=== PATIENT | female | born 1975 | race Caucasian/White ===

== ENCOUNTER 2018-03-09 16:42 | Observation (INO) ==
[2018-03-09 17:22] LABS: Basophils % 0.3 % (0.1-2.0); Eosinophils # 0.1 K/mm3 (0.0-0.4); Eosinophils % 1.3 % (0.1-12.0); Hematocrit 43.7 % (37.0-47.0); Hemoglobin 14.5 g/dL (12.2-16.2); Lymphocytes # 2.4 K/mm3 (0.7-4.5); Lymphocytes % 25.5 K/mm3 (10-50); Mean Corpuscular HGB Conc 33.3 g/dL (31.8-35.4); Mean Corpuscular Hemoglobin 28.8 pg (27.0-31.2); Mean Corpuscular Volume 86.5 fl (81-99); Mean Platelet Volume 7.1 fl (7.4-10.4); Monocytes # 0.3 K/mm3 (0.1-1.0); Monocytes % 2.8 % (1.7-9.3); Neutrophils # 6.5 K/mm3 (1.8-7.8); Platelet Count 381 K/mm3 (142-424); Red Blood Count 5.05 M/mm3 (4.20-5.40); Red Cell Distribution Width 14.8 % (11.5-17.5); White Blood Count 9.2 K/mm3 (4.8-10.8)
[2018-03-09 17:40] LABS: Alanine Aminotransferase 16 U/L (12-78); Albumin Level 4.1 gm/dL (3.4-5.0); Alkaline Phosphatase 140 U/L (46-116); Aspartate Amino Transferase 13 U/L (15-37); Bilirubin,Total 0.2 mg/dL (0.2-1.0); Blood Urea Nitrogen 16 mg/dL (7-18); Calcium 9.5 mg/dL (8.5-10.1); Carbon Dioxide 23 mmol/L (21.0-32.0); Chloride 102 mmol/L (98-107); Creatine Kinase 67 U/L (26-192); Glucose 149 mg/dL (74-106); Sodium 139 mmol/L (136-145); Total Protein,Serum 8.1 gm/dL (6.4-8.2)
--- NOTE | 2018-03-09 18:39 | Emergency Department Note ---
ED Disposition Clinical Impression: Chest pain Qualifiers: Chest pain type: precordial pain Qualified Code(s): R07.2 - Precordial pain Disposition: Still a Patient Condition on Discharge: Good Referrals: Susan Arora [Primary Care Provider] - - Critical Care Critical Care Time: No Attestation: On 03/09/18, the high probability of a clinically significant, sudden or life threatening deterioration of the following system(s) required my full and direct attention, intervention and personal management. The time I documented below is in addition to time spent performing reported procedures but includes the following listed in this critical care notation. Medical Decision Making - David Inquiry Pt receiving controlled substance: No Vital Signs: 03/09/18 16:43 Temperature 98.2 F Temperature Source Oral Pulse Rate [Right Brachial] 80 Respiratory Rate 18 Blood Pressure [Right Arm] 132/95 Blood Pressure Mean [Right Arm] 107 Blood Pressure Source [Right Arm] Automatic Cuff Blood Pressure Position [Right Arm] Sitting 02 Sat by Pulse Oximetry 98 Oxygen Delivery Method Room Air - Lab Data Lab Results 03/09/18 16:53: WBC 9.2, RBC 5.05, Hgb 14.5, Hct 43.7, MCV 86.5, MCH 28.8, MCHC 33.3, RDW 14.8, Plt Count 381, MPV 7.1 L, Neut % (Auto) 70.0, Lymph % (Auto) 25.5, Roberts % (Auto) 2.8, Eos % (Auto) 1.3, Baso % (Auto) 0.3, Neut # (Auto) 6.5 , Lymph # (Auto) 2.4, Roberts # (Auto) 0.3, Eos # (Auto) 0.1, Baso # (Auto) 0.0 03/09/18 16:53: Sodium 139, Potassium 4.0, Chloride 102, Carbon Dioxide 23, Anion Gap 18.0 H, BUN 16, Creatinine 0.68, Estimated Creat Clear 125, Estimated GFR 94, Est GFR ( Amer) 114, Glucose 149 H, Calcium 9.5, Total Bilirubin 0.2, AST 13 L, ALT 16, Alkaline Phosphatase 140 H, Total Creatine Kinase 67, CK- MB (CK-2) < 0.5, CK-MB (CK-2) Rel Index 0.7, Troponin I < 0.02, Total Protein 8.1, Albumin 4.1, Globulin 4.0 H, Albumin/Globulin Ratio 1.0 L Result diagrams: 03/09/18 16:53 03/09/18 16:53 Orders (Tests/Meds): ED MEDICATIONS Discontinued Medications Generic Name Dose Route Start Last Admin Trade Name Edwin PRN Reason Stop Dose Admin Aspirin 162 mg 03/09/18 19:18 03/09/18 19:19 Aspirin 81mg Chewable Tablet PO 03/09/18 19:19 162 mg ONCE ONE Administration - ECG Data Tracing #1 EKG interpreted by Javon Bhagat MD: Rhythm: sinus tachycardia Rate: 124 [place]: normal Ectopy: none Conduction: normal ST Segment Changes: Nonspecific T Wave Changes: Nonspecific Q Waves: none No evidence of acute ischemia or injury No prior EKGs available for comparison Medical Decision Narrative: 7:05 PM: Discussed with Dr. Callaway, cardiology. He recommends admitting the patient for workup. Patient is agreeable. 7:20 PM: I have discussed the case with Dr. Henderson who agrees to admit the patient to the hospital. We discussed the patient's clinical information, including history, exam, laboratory and radiology results and ED course. Per hospital procedure, I will write temporary bridge inpatient orders on the patient. Specific orders requested by the admitting physician: Serial cardiac enzymes, cardiology consult, echocardiogram in the morning General Adult HPI - General Chief complaint: PAIN Stated complaint: CHEST PAIIN Time Seen by Provider: 03/09/18 18:40 Mode of Arrival: Ambulatory Limitations: No Limitations Description of Symptoms (Recalled from ER Triage Doc. by RN): PAIN IN CHEST AND SHOULDERS AND BACK; GOING ON FOR A COUPLE OF DAYS. WORSENED TODAY - History of Present Illness HPI narrative: The past 2 days the patient has had intermittent chest pain in the sternal and left inframammary area lasting an hour to 2 per episode. A couple of episodes per day. Associated with shortness of breath. No nausea or diaphoresis. She also feels her heart racing at times. Today she also had an episode beginning approximately 2 PM with shoulder discomfort bilaterally posteriorly across her shoulder blades. [place] her heart racing as well. No prior history of heart disease. No prior history of cardiac testing such as stress test or angiogram. She has hypertension and she is a smoker. History of stroke and hypertension in her family. He was better after arriving in the emergency room. Only mild discomfort currently. Is a history of chronic back pain and multiple back surgeries. - Related Data Allergies Allergy/AdvReac Type Severity Reaction Status Date / Time morphine [MORPHINE] Allergy Unknown Verified 03/09/18 19:18 Sulfa (Sulfonamide Allergy Unknown Verified 03/09/18 19:18 Antibiotics) [SULFA (SULFONAMIDE ANTIBIOTICS)] sulfamethoxazole Allergy Unknown Verified 03/09/18 19:18 [From BACTRIM] trimethoprim [From BACTRIM] Allergy Unknown Unverified 11/09/17 14:26 [facility] History I have reviewed the patient's past medical history: Yes - Social History Alcohol Intake: never Substance Use Type: IV drugs Last Used Substance: unknown - Psychiatric History Expresses thoughts of harming self/others: None Suicide Plan Description: No Plan ROS Obtained: Yes All systems reviewed & no additional complaints - Constitutional Constitutional: Denies fever(s) - Cardiovascular Cardiovascular: Reports chest pain, Reports palpitations - Respiratory Respiratory: No cough, Yes dyspnea - Gastrointestinal Gastrointestingal: Denies: nausea, vomiting - Musculoskeletal Musculoskeletal: Reports back pain Physical Exam - General General appearance: alert, in no apparent distress Comment: Heart rate 76 - Head Head exam: atraumatic, normocephalic, normal inspection - Eye Eye exam: Present: normal appearance, PERRL, EOMI - ENT ENT exam: Present: normal exam, normal oropharynx, mucous membranes moist, TM's normal bilaterally, normal external ear exam - Neck Neck exam: Present: normal inspection, full ROM, trachea midline. Absent: meningismus, lymphadenopathy - Chest Chest inspection: Present: normal inspection, symmetric chest wall rise. Absent : tenderness - Respiratory Respiratory exam: Present: normal lung sounds bilaterally. Absent: respiratory distress - Cardiovascular Cardiovascular exam: Present: regular rate, normal rhythm. Absent: JVD - Abdominal Exam Abdominal exam: Present: soft, normal bowel sounds. Absent: distention, tenderness, guarding - Extremities Exam Extremities exam: Present: normal inspection, full ROM, normal capillary refill. Absent: calf tenderness - Back Exam Back exam: Present: other (Lumbar surgical scar. Discolored lumbar area which patient says is chronic from heating pad). Absent: tenderness - Neurological Exam Neurological exam: Present: alert, oriented X3, CN II-XII intact. Absent: motor sensory deficit - Psychiatric Psychiatric exam: Present: normal affect, normal mood - Skin Skin exam: Present: warm, dry, intact, normal color - Lymphatic Lymphatic Findings: no adenopathy - Other Other exam information: Symmetric strong pulses in all 4 extremities
--- NOTE | 2018-03-10 07:44 | History & Physical Report ---
*Admission Date: 03/09/18 *Chief complaint: Chest pain *History of present illness: 43-year-old smoker with a history of hypertension came to the emergency department last night with chief complaints of anterior and posterior chest pain that radiated around and through her chest. She describes the pain as sharp but there was some left arm radiation and perhaps some dyspnea. There is no diaphoresis or significant exertional component. She has a long history of chronic back pain from multiple surgeries and is on chronic opiates, but she reports that this pain is very different than her baseline musculoskeletal pain. Initial enzymes were unremarkable but given her risk factors and family history she was admitted to hospital for rule out [place] and cardiology consultation. [facility] History I have reviewed the patient's past medical history: Yes Medical History: Reports:: Deep Vein Thrombosis, Hypertension Denies:: Cancer, Diabetes Mellitus Type 1, Diabetes Mellitus Type 2, MRSA Other Medical History: Reports: Anemia, Arthritis, Thyroid Disease ( hyperthyroidism) Other Surgeries: Yes: Appendectomy, Other (spinal) Amputation: No Fractures: No - *Social History Educational Level: Completed College Smoking Status: Current every day smoker Tobacco Type: cigarettes # Packs/Day (cigarettes): 1 #Yrs smoked (if former smoker): 15 Alcohol Intake: never Substance Use Type: former substance user Last Used Substance: unknown Occupational Status: unemployed Housing: house Household Members: other - Psychiatric History Expresses thoughts of harming self/others: None Suicide Plan Description: No Plan *Family Hx:: Anemia, Cancer, Diabetes, Heart Attack, Hyperlipidemia, Hypertension, Kidney Disease, Stroke Review of Systems - Review of Systems Review of systems:: unable to obtain, other, pertinent systems reviewed and negative unless documented below Meds Home Medications Medication Instructions Recorded Confirmed Type Ambien 10mg tablet 10 mg PO HS 03/10/18 03/10/18 History Gabapentin 600 mg PO DAILY 03/10/18 03/10/18 History Metoprolol Tartrate 50 mg PO DAILY 03/10/18 03/10/18 History Percocet 7.5/325mg tablet 7.5 mg PO QID PRN 03/10/18 03/10/18 History Tizanidine HCl 4 mg PO DAILY 03/10/18 03/10/18 History Venlafaxine HCl ER 75 mg PO DAILY 03/10/18 03/10/18 History Allergies Allergy/AdvReac Type Severity Reaction Status Date / Time morphine [MORPHINE] Allergy Unknown na Verified 03/10/18 06:11 Sulfa (Sulfonamide Allergy Unknown na Verified 03/10/18 06:11 Antibiotics) [SULFA (SULFONAMIDE ANTIBIOTICS)] sulfamethoxazole Allergy Unknown na Verified 03/10/18 06:11 [From BACTRIM] trimethoprim [From BACTRIM] Allergy Unknown na Verified 03/10/18 06:11 Exam Vital signs and Labs for Last 24 Hours: Temp Pulse Resp BP Pulse Ox 98.0 F 62 20 106/63 93 L 03/10/18 04:08 03/10/18 04:08 03/10/18 04:08 03/10/18 04:08 03/10/18 04:08 Laboratory Results - last 24 hr 03/09/18 20:41: Troponin I < 0.02 03/09/18 23:30: Troponin I < 0.02 I & O for Last 24 hours: Intake & Output 03/07/18 03/08/18 03/09/18 03/10/18 11:59 11:59 11:59 11:59 Intake Total 200 / 200 Output Total 1250 / 1250 Balance -1050 / -1050 Weight 143 lb Narrative: This morning patient is pleasant, talkative, pain-free. Lungs are clear, heart rate regular. Abdomen soft, able to move all extremities well and has no peripheral edema. H&P: Result - Labs Labs: Cardiac Enzymes 03/09/18 03/09/18 Range/Units 20:41 23:30 Troponin I < 0.02 < 0.02 (0.00-0.06) ng/ml Assessment and Plan (1) Chest pain Current visit: Yes Status: Acute Qualifiers: Chest pain type: precordial pain Qualified Code(s): R07.2 - Precordial pain Category: Medical Code(s): R07.9 - Chest pain, unspecified Some elevated risk factors noted in patient's history. Plan will be for cardiology evaluation for risk stratification decision.
--- NOTE | 2018-03-10 07:59 | Pharmacy Consult Notes ---
[facility] Pharmacy VTE Monitoring - Patient Demographics Admission date: 03/09/18 Report Date: 03/10/18 Time: 07:59 Allergies/Adverse Reactions: Patient Allergies morphine [MORPHINE] Allergy (Unknown, Verified 03/10/18 06:11) na Sulfa (Sulfonamide Antibiotics) [SULFA (SULFONAMIDE ANTIBIOTICS)] Allergy ( Unknown, Verified 03/10/18 06:11) na sulfamethoxazole [From BACTRIM] Allergy (Unknown, Verified 03/10/18 06:11) na trimethoprim [From BACTRIM] Allergy (Unknown, Verified 03/10/18 06:11) na Height: 1.55 m Weight: 64.864 kg Patient Problems: Current Active Problems Chest pain (Acute) - VTE Risk Labs: VTE Related Lab Results Hgb 14.5 g/dL (12.2-16.2) 03/09/18 16:53 Hct 43.7 % (37.0-47.0) 03/09/18 16:53 Plt Count 381 K/mm3 (142-424) 03/09/18 16:53 BUN 16 mg/dL (7-18) 03/09/18 16:53 Creatinine 0.68 mg/dL (0.55-1.02) 03/09/18 16:53 Estimated Creat Clear 125 mL/min (0-300) 03/09/18 16:53 Was VTE Risk Assessment Performed: Yes VTE Score: 3 VTE Risk Level: Low Risk - Prophylaxis VTE Prophylaxis Ordered?: Yes Types of VTE Prophylaxis: TEDS Knee High Location of Applied Device: Bilateral Lower Extremeties - VTE Diagnosis Confirmed Treatment or plan recommended: Continue Current Treatment
--- NOTE | 2018-03-10 11:07 | Cardiology Report ---
PROCEDURE: 2-D echo M-mode and color Doppler INDICATIONS FOR THE TEST: Chest pain X COPD Heart Murmur Tobacco SmokingX Palpitations Fatigue Syncope Edema HypertensionXDiabetes Mellitus Rheumatic Fever SOB POTTS Obesity Hyperlipidemia Family History HD Additional History PATIENT INFORMATION HEIGHT: 63 WEIGHT:165 GENDER: Female B/P:132/95 2-D/M-MODE INTERPRETATION: 2-D MEASUREMENTS OBSERVED VALUES IN CMS Right Ventricular Dimension (RVDd) 2.5 Interventricular Septum (Thickness)(IVsd) .7 Left Ventricular Internal Dimensions(LVIDd) 5.2 Left Ventricular Posterior Wall (Thickness)(LVPWd) .8 Aortic Root 2.8 Aortic Cusp Separation 2.0 Left Atrial Dimensions (LAD) 2.8 2D 1. Left atrium is normal size, left ventricle is normal size, there is no concentric left ventricular hypertrophy, visually estimated ejection fraction 55% with no obvious regional wall motion abnormality. 2. The right atrium and right ventricle are normal size and contractility. 3. The aortic, mitral and tricuspid valve are grossly normal. 4. The pulmonic valve is poorly visualized. 5. No significant pericardial effusion noted. DOPPLER INTERROGATION: Doppler interrogation of the aortic, mitral and tricuspid valvular presence of mild mitral and tricuspid regurgitation, tricuspid regurgitant jet velocity is insufficient for calculation of the right ventricular systolic pressure, grade 1 diastolic dysfunction seen without tissue Doppler evidence of raised left atrial pressure. CONCLUSION: 1. Normal left ventricular size, preserved left ventricular systolic function, visually estimated ejection fraction 55% with no obvious regional wall motion abnormality, grade 1 diastolic dysfunction seen without tissue Doppler evidence of raised left atrial pressure. 2. Mild mitral and tricuspid regurgitation 3. No significant pericardial effusion noted.
--- NOTE | 2018-03-10 12:10 | Discharge Summary ---
General - General Admission date: 03/09/18 Discharge date: 03/10/18 HPI HPI: 43-year-old smoker with a history of hypertension came to the emergency department last night with chief complaints of anterior and posterior chest pain that radiated around and through her chest. She describes the pain as sharp but there was some left arm radiation and perhaps some dyspnea. There is no diaphoresis or significant exertional component. She has a long history of chronic back pain from multiple surgeries and is on chronic opiates, but she reports that this pain is very different than her baseline musculoskeletal pain. Initial enzymes were unremarkable but given her risk factors and family history she was admitted to hospital for rule out [place] and cardiology consultation. Hospital Course Hospital Course: Patient was admitted, ruled out for myocardial infarction, and monitored on telemetry. No issues with telemetry monitoring, no further chest pain. This morning echocardiogram is normal. Cardiology consultation evaluated her, recommended outpatient Myoview stress testing. She will be discharged home to have this set up. Follow-up with her regular primary care provider and with cardiology as scheduled. Objective Vital signs: Temp Pulse Resp BP Pulse Ox 98.3 F 78 19 122/87 94 L 03/10/18 12:00 03/10/18 12:00 03/10/18 12:00 03/10/18 12:00 03/10/18 12:00 Narrative: Patient's alert, pleasant, heart rate regular, lungs clear. Good distal perfusion, no cranial nerve deficits. Back exam and lower extremity exam deferred. Results Labs on day of discharge: Labs from last 24 hours 03/09/18 03/09/18 23:30 20:41 Troponin I < 0.02 < 0.02 DS: Diagnosis - Discharge Diagnosis (1) Chest pain Status: Acute Discharge Plan - Patient Discharge Instructions ACTIVITY: Continue current activity DIET: continue same diet Patient Instructions: DI for Chest Pain - Follow up Plan Follow up with: Jamie Callaway MD [Staff Physician] - Unknown provider or service follow up:: 03/10/18 12:11 For Stress testing Disposition: Home, Self-Fpc Medications: Home Medications Medication Instructions Recorded Confirmed Type Gabapentin [Neurontin 600mg 600 mg PO QID 03/10/18 03/10/18 History tablet] Metoprolol Tartrate 50 mg PO BID 03/10/18 03/10/18 History Oxycodone HCl/Acetaminophen 1 tab PO QIDP PRN 03/10/18 03/10/18 History [Percocet 7.5/325mg tablet] Tizanidine HCl [Zanaflex 4mg 4 mg PO TID 03/10/18 03/10/18 History tablet] Trazodone HCl [Desyrel 50mg tablet] 50 mg PO BID 03/10/18 03/10/18 History Venlafaxine HCl [Venlafaxine HCl 75 mg PO DAILY 03/10/18 03/10/18 History ER] Zolpidem Tartrate [Ambien 10mg 10 mg PO HS 03/10/18 03/10/18 History tablet] Prescriptions/Medication Reconciliation: Continue Venlafaxine HCl [Venlafaxine HCl ER] 75 mg PO DAILY Metoprolol Tartrate 50 mg PO BID Zolpidem Tartrate [Ambien 10mg tablet] 10 mg PO HS Oxycodone HCl/Acetaminophen [Percocet 7.5/325mg tablet] 1 tab PO QIDP PRN PRN Reason: Moderate To Severe Pain Trazodone HCl [Desyrel 50mg tablet] 50 mg PO BID Tizanidine HCl [Zanaflex 4mg tablet] 4 mg PO TID Gabapentin [Neurontin 600mg tablet] 600 mg PO QID
--- NOTE | 2018-03-10 12:13 | Progress Note ---
Subjective Date: 03/10/18 Time: 12:08 Principal diagnosis: Angina pectoris Interval history: Patient is a 43-year-old white female admitted to facility 03/09/18 for chest pain. Patient stated that her chest pain started midsternally radiating to the left side of the neck and jaw area. During this episode of chest pain patient complains of shortness of breath. Patient denies chest pain or shortness of breath during this exam. Patient has history of chronic back pain, Deep vein thrombus and Hypertension. Patient remains in sinus rhythm on the monitor. Patient underwent echocardiogram which revealed an EF of 55% with no wall abnormalities. Exam Vital signs and Labs for Last 24 Hours: Temp Pulse Resp BP Pulse Ox 98.3 F 78 19 122/87 94 L 03/10/18 12:00 03/10/18 12:00 03/10/18 12:00 03/10/18 12:00 03/10/18 12:00 Laboratory Results - last 24 hr 03/09/18 20:41: Troponin I < 0.02 03/09/18 23:30: Troponin I < 0.02 I & O for Last 24 hours: Intake & Output 03/07/18 03/08/18 03/09/18 03/10/18 23:59 23:59 23:59 23:59 Intake Total 200 / 200 Output Total 1250 / 1250 Balance 200 / 200 -1250 / -1250 Weight 143 lb 143 lb - Constitutional no acute distress, average body habitus, cooperative - *Routine Neck Exam Present: supple, full ROM, normal carotid upstroke, trachea midline. Absent: JVD, carotid bruit - *Routine Respiratory Exam Present: CTA bilaterally. Absent: rhonchi, stridor, wheezes, crackles - *Routine Cardiovascular Exam Present: RRR, Normal S1, Normal S2. Absent: murmur, gallop, rubs, JVD - *Routine Abdominal Exam Present: soft. Absent: tenderness, distended, guarding - *Routine Extremities Exam Present: full ROM, pulses intact, normal capillary refill. Absent: cyanosis, clubbing, edema, calf tenderness - *Routine Neurological Exam Present: alert, oriented X3, CN II-XII intact, moving all extremities, normal speech Progress Note: A&P (1) Chest pain Start date: 04/18/18 Start time: 12:14 Status: Acute Current Visit: Yes Assessment and Plan for All Diagnoses:: Plan: 1. Current home medications as prescribed by PCP. 2. Obtain GXT myoview stress test as outpatient in one week. 3. Aspirin 81mg po daily. 4. Cardiology clinic follow up after stress test in one week.
== END 2018-03-10 12:58 | disposition home or self-care (01) ==
LOC: ER 16:42 → 2ND 16:42 → ICU 19:48
PROVIDERS: ADMIT Internal Medicine Adolescent Medicine; ATTEND Internal Medicine Adolescent Medicine

== ENCOUNTER 2020-05-04 19:29 | Emergency (ER) | payer OTHER, SELFPAY ==
[2020-05-04 19:30] VITALS: BP 135/93; PULSE 95; RESP 16; TEMP 37.5; O2SAT 100; BMI 29.2
--- NOTE | 2020-05-04 19:44 | [facility].EDMCLR ---
ED Disposition Clinical Impression: Encounter for medical clearance for patient hold Disposition: Home, Self-Care Condition on Discharge: Good Referrals: Provider,Referral, MD [Primary Care Provider] - - Critical Care Critical Care Time: No Attestation: On 05/04/20, the high probability of a clinically significant, sudden or life threatening deterioration of the following system(s) required my full and direct attention, intervention and personal management. The time I documented below is in addition to time spent performing reported procedures but includes the following listed in this critical care notation. Medical Decision Making - Medical Records Medical records reviewed: Yes: I reviewed the patient's medical records. - David Inquiry Pt receiving controlled substance: No Medical Clearance HPI - General Chief complaint: Medical Clearance Stated complaint: medical clearance Time Seen by Provider: 05/04/20 19:44 Source of Information: Patient Limitations: No Limitations - History of Present Illness MD complaint: medical clearance requested Home medications: Home Medications Medication Instructions Recorded Confirmed Gabapentin [Neurontin 600mg 600 mg PO QID 03/10/18 03/10/18 tablet] Metoprolol Tartrate 50 mg PO BID 03/10/18 03/10/18 Oxycodone HCl/Acetaminophen 1 tab PO QIDP PRN 03/10/18 03/10/18 [Percocet 7.5/325mg tablet] Tizanidine HCl [Zanaflex 4mg 4 mg PO TID 03/10/18 03/10/18 tablet] Trazodone HCl [Desyrel 50mg tablet] 50 mg PO BID 03/10/18 03/10/18 Venlafaxine HCl [Venlafaxine HCl 75 mg PO DAILY 03/10/18 03/10/18 ER] Zolpidem Tartrate [Ambien 10mg 10 mg PO HS 03/10/18 03/10/18 tablet] Allergies/Adverse reactions: Allergies Allergy/AdvReac Type Severity Reaction Status Date / Time morphine [MORPHINE] Allergy Unknown na Verified 03/10/18 06:11 Sulfa (Sulfonamide Allergy Unknown na Verified 03/10/18 06:11 Antibiotics) [SULFA (SULFONAMIDE ANTIBIOTICS)] sulfamethoxazole Allergy Unknown na Verified 03/10/18 06:11 [From BACTRIM] trimethoprim [From BACTRIM] Allergy Unknown na Verified 03/10/18 06:11 [facility] History - Hepatitis A Screen Attestation statement:: This patient has been screened for Hepatitis A risk factors. I have reviewed the patient's past medical history: No Medical History: Reports:: Deep Vein Thrombosis, Hypertension Denies:: Cancer, Diabetes Mellitus Type 1, Diabetes Mellitus Type 2, MRSA Other Medical History: Reports: Anemia, Arthritis, Thyroid Disease (hyperthyroidism) Other Surgeries: Yes: Appendectomy, Other (spinal) Amputation: No Fractures: No - Social History Smoking Status: Current every day smoker Tobacco Type: cigarettes # Packs/Day (cigarettes): 1 #Yrs smoked (if former smoker): 15 Alcohol Intake: never Substance Use Type: former substance user Occupational Status: unemployed Housing: house Household Members: other Family Hx:: Anemia, Cancer, Diabetes, Heart Attack, Hyperlipidemia, Hypertension, Kidney Disease, Stroke ROS Obtained: Yes All systems reviewed & no additional complaints - Constitutional Constitutional: Reports system reviewed and no additional complaints, except as docu, Reports anorexia - Eyes Eyes: Reports system reviewed and no additional complaints, except as docu - ENT Ears, Nose, Mouth, and Throat: Reports system reviewed and no additional complaints, except as docu - Cardiovascular Cardiovascular: Reports system reviewed and no additional complaints, except as docu - Respiratory Respiratory: Yes system reviewed and no additional complaints, except as docu - Gastrointestinal Gastrointestingal: Reports: system reviewed and no additional complaints, except as docu - Genitourinary Male Genitourinary: Reports system reviewed and no additional complaints, except as docu Female Genitourinary: Reports system reviewed and no additional complaints, except as docu - Musculoskelet
[2020-05-04 19:59] VITALS: BP 132/87; PULSE 91; RESP 16; TEMP 37.4; O2SAT 100
== END 2020-05-04 20:00 | disposition home or self-care (01) ==
PROVIDERS: Emergency Provider Family Medicine
DX: F11.10 Opioid abuse, uncomplicated (principal); I10 Essential (primary) hypertension; E05.90 Thyrotoxicosis, unspecified without thyrotoxic crisis or storm; F17.210 Nicotine dependence, cigarettes, uncomplicated; Z90.49 Acquired absence of other specified parts of digestive tract; Z88.2 Allergy status to sulfonamides; Z88.5 Allergy status to narcotic agent
CPT/HCPCS: 99282

== ENCOUNTER → 2020-09-27 16:50 | Outpatient (CLI) | payer OTHER, SELFPAY ==
[2020-09-27 17:10] LABS: Basophils # 0.1 K/mm3 (0-0.2); Basophils % 0.6 % (0.1-2.0); Eosinophils # 0.2 K/mm3 (0.0-0.4); Eosinophils % 2.2 % (0.1-12.0); Hematocrit 37.2 % (37.0-47.0); Hemoglobin 12.3 g/dL (12.2-16.2); Lymphocytes # 2.5 K/mm3 (0.7-4.5); Lymphocytes % 31.6 % (10-50); Mean Corpuscular Hemoglobin 25.5 pg (27.0-31.2); Mean Corpuscular Volume 77.5 fl (81-99); Mean Platelet Volume 7.1 fl (7.4-10.4); Monocytes # 0.3 K/mm3 (0.1-1.0); Monocytes % 3.8 % (1.7-9.3); Neutrophils # 4.8 K/mm3 (1.8-7.8); Neutrophils % 61.8 % (37.0-80.0); Platelet Count 362 K/mm3 (142-424); White Blood Count 7.8 K/mm3 (4.8-10.8)
== END ==
DX: R79.89 Other specified abnormal findings of blood chemistry (principal)
CPT/HCPCS: 36415; 85025

== ENCOUNTER → 2020-11-08 15:52 | Outpatient (CLI) | payer OTHER, SELFPAY | PROVIDERS: PCP Internal Medicine; Visit Provider Internal Medicine | DX: Z03.818 Encounter for observation for suspected exposure to other biological agents ruled out (principal) | CPT/HCPCS: U0003 ==

== ENCOUNTER 2020-12-04 18:01 | Emergency (ER) | payer OTHER, SELFPAY ==
[2020-12-04 18:01] VITALS: BP 152/103; PULSE 96; RESP 19; TEMP 36.9; O2SAT 96; BMI 23.6
--- NOTE | 2020-12-04 18:35 | HMH.EDUTC ---
[facility] Disposition Clinical Impression: Encounter for laboratory testing for COVID-19 virus Disposition: Home, Self-Care Condition on Discharge: Good Instructions: DI for COVID-19 (Suspected or Confirmed ), Coronavirus Disease 2019, Preventing the Spread of Coronavirus Discharge Instructions Additional Instructions: *Monitor Temp, Over the counter Motrin or Tylenol as directed/as needed Tylenol every 4 hours and Motrin every 6 hours (as long as your family doctor has told you that you can take it) for fever or pain. and straight to ER if unable to lower temp less than 101.0 after medication given *Warm salt water gargles may help to soothe the throat *Throat Lozenges *Warm fluids like tea with honey may help to soothe the throat *Sleep elevated *Humidifier/Vaporizer Follow up IMMEDIATELY for new or worsening symptoms or no Noticeable improvement over the next 48-72 hours. 911 for difficulty breathing or swallowing You were tested for today for COVID19 your test result should be back in the next 24-48 hours, you may call to the [facility] to see if your test results are back in the next 48 hours [phone] [facility] hours are 9am-9pm You was given a handout with instructions for Self Quarantine and Self isolation for while you wait on test results and what to do if they are positive If you are positive the Health Dept will be contacting you also Referrals: PCP,No [Primary Care Provider] - Forms: Work/School Release Time of Disposition: 18:43 Medical Decision Making - David Inquiry Pt receiving controlled substance: No David was queried for this patient: No Vital Signs: 12/04/20 18:01 Temperature 98.5 F Temperature Source Oral Pulse Rate [Left Radial] 96 H Respiratory Rate 19 Blood Pressure [Right Arm] 152/103 H Blood Pressure Mean [Right Arm] 119 Blood Pressure Source [Right Arm] Automatic Cuff 02 Sat by Pulse Oximetry 96 Oxygen Delivery Method Room Air Orders (Tests/Meds): ORDERS Category Date Time Status Covid-19 Nasal PCR Sendout [facility] Stat Lab 12/04/20 18:11 Ordered [facility] [place] HPI - General Stated complaint: Covid-19 test Time Seen by Provider: 12/04/20 18:35 Mode of Arrival: Ambulatory Source of Information: Patient Limitations: No Limitations Description of Symptoms (Recalled from Triage Doc. by RN): c/o sore throat, runny nose and one day of fever. Wants covid test. HEENT Symptoms (Recalled from RN notes): Yes Resp Symptoms (Recalled from RN notes): No Skin Symptoms (Recalled from RN notes): No MS Symptoms (Recalled from RN notes): No Functional Status (Recalled from RN notes): wnl - History of Present Illness Provider Complaint: Patient states that she was around someone about a week ago that was tested positive for COVID and she has since started having some runny nose and sore throat so she wanted to get tested - Related Data Home Medications Medication Instructions Recorded Confirmed Gabapentin [Neurontin 600mg 600 mg PO QID 03/10/18 03/10/18 tablet] Metoprolol Tartrate 50 mg PO BID 03/10/18 03/10/18 Oxycodone HCl/Acetaminophen 1 tab PO QIDP PRN 03/10/18 03/10/18 [Percocet 7.5/325mg tablet] Tizanidine HCl [Zanaflex 4mg 4 mg PO TID 03/10/18 03/10/18 tablet] Trazodone HCl [Desyrel 50mg tablet] 50 mg PO BID 03/10/18 03/10/18 Venlafaxine HCl [Venlafaxine HCl 75 mg PO DAILY 03/10/18 03/10/18 ER] Zolpidem Tartrate [Ambien 10mg 10 mg PO HS 03/10/18 03/10/18 tablet] Allergies Allergy/AdvReac Type Severity Reaction Status Date / Time morphine [MORPHINE] Allergy Unknown na Verified 05/04/20 19:46 Sulfa (Sulfonamide Allergy Unknown na Verified 05/04/20 19:46 Antibiotics) [SULFA (SULFONAMIDE ANTIBIOTICS)] sulfamethoxazole Allergy Unknown na Verified 05/04/20 19:46 [From BACTRIM] trimethoprim [From BACTRIM] Allergy Unknown na Verified 05/04/20 19:46 - Worker's Comp Is this a Worker's Comp case?: No [facility] History - Hepatitis A Scr
[2020-12-04 18:54] VITALS: BP 152/103; PULSE 96; RESP 19; TEMP 36.9; O2SAT 96
[2020-12-06 07:39] LABS: Covid-19 Nasal PCR Sendout P&C NEGATIVE
== END 2020-12-04 18:55 | disposition home or self-care (01) ==
PROVIDERS: Emergency Provider Nurse Practitioner
DX: Z20.822 Contact with and (suspected) exposure to COVID-19 (principal); J02.9 Acute pharyngitis, unspecified; I10 Essential (primary) hypertension; F17.210 Nicotine dependence, cigarettes, uncomplicated; Z88.2 Allergy status to sulfonamides; Z88.5 Allergy status to narcotic agent; Z79.899 Other long term (current) drug therapy
CPT/HCPCS: 99202; G0463; U0004

== ENCOUNTER → 2021-09-23 12:30 | Outpatient (CLI) | payer OTHER, SELFPAY | PROVIDERS: Visit Provider Nurse Practitioner | DX: Z20.822 Contact with and (suspected) exposure to COVID-19 (principal) | CPT/HCPCS: C9803; U0003; U0005 ==

== ENCOUNTER → 2021-10-20 17:06 | Outpatient (CLI) | payer OTHER, SELFPAY ==
[2021-10-20 17:29] LABS: Alanine Aminotransferase 12 U/L (12-78); Albumin Level 4.2 g/dl (3.5-5.0); Albumin/Globulin Ratio 1.2 (1.1-1.8); Alkaline Phosphatase 119 U/L (38-126); Anion Gap 14.9 mEq/L (5-15); Aspartate Amino Transferase 28 U/L (14-36); Bilirubin,Total 0.3 mg/dl (0.2-1.3); Blood Urea Nitrogen 11 mg/dl (7-17); Calcium 9.6 mg/dl (8.4-10.2); Carbon Dioxide 26 mmol/L (22.0-30.0); Chloride 107 mmol/L (98-107); Estimated Glomerular Filt Rate 90 ml/min (>60); GFR (African American) 109 ML/MIN (>60); Globulin 3.4 g/dL (1.3-3.2); Glucose 78 mg/dl (74-100); Potassium 3.9 mmoL/L (3.5-5.1); Sodium 144 mmol/L (136-145); Total Protein,Serum 7.6 g/dl (6.3-8.2)
[2021-10-20 17:35] LABS: C-Reactive Protein 72.9 mg/L (0-4)
[2021-10-20 18:55] LABS: Basophils % 0.6 % (0.1-2.0); Eosinophils # 0.3 K/mm3 (0.0-0.4); Eosinophils % 4.2 % (0.1-12.0); Hematocrit 46.7 % (37.0-47.0); Hemoglobin 15.6 g/dL (12.2-16.2); Lymphocytes % 31.4 % (10-50); Mean Corpuscular HGB Conc 33.4 g/dL (31.8-35.4); Mean Corpuscular Volume 86.7 fl (81-99); Mean Platelet Volume 9.8 fl (7.4-10.4); Monocytes # 0.4 K/mm3 (0.1-1.0); Monocytes % 6.1 % (1.7-9.3); Neutrophils # 3.7 K/mm3 (1.8-7.8); Neutrophils % 57.7 % (37.0-80.0); Platelet Count 340 K/mm3 (142-424); Red Blood Count 5.39 M/mm3 (4.20-5.40); Red Cell Distribution Width 13.8 % (11.5-17.5); White Blood Count 6.5 K/mm3 (4.8-10.8)
== END ==
PROVIDERS: Visit Provider Internal Medicine Infectious Disease
DX: R07.9 Chest pain, unspecified (principal)
CPT/HCPCS: 80053; 85025; 86140

== ENCOUNTER → 2021-10-23 14:38 | Outpatient (CLI) | payer OTHER, SELFPAY ==
[2021-10-23 15:24] LABS: Creatine Kinase 51 U/L (30-135)
== END ==
PROVIDERS: Visit Provider Internal Medicine Infectious Disease
DX: R07.9 Chest pain, unspecified (principal)
CPT/HCPCS: 82550

== ENCOUNTER → 2021-10-28 16:09 | Outpatient (CLI) | payer OTHER, SELFPAY ==
[2021-10-28 16:37] LABS: Basophils # 0.1 K/mm3 (0-0.2); Basophils % 1.1 % (0.1-2.0); Eosinophils # 1.4 K/mm3 (0.0-0.4); Eosinophils % 12.5 % (0.1-12.0); Hematocrit 35.5 % (37.0-47.0); Hemoglobin 11.9 g/dL (12.2-16.2); Lymphocytes # 2.8 K/mm3 (0.7-4.5); Mean Corpuscular HGB Conc 33.5 g/dL (31.8-35.4); Mean Corpuscular Hemoglobin 29.2 pg (27.0-31.2); Mean Corpuscular Volume 87.3 fl (81-99); Mean Platelet Volume 8.9 fl (7.4-10.4); Monocytes # 0.6 K/mm3 (0.1-1.0); Monocytes % 5.1 % (1.7-9.3); Neutrophils # 6.6 K/mm3 (1.8-7.8); Neutrophils % 57.3 % (37.0-80.0); Platelet Count 450 K/mm3 (142-424); Red Blood Count 4.07 M/mm3 (4.20-5.40); Red Cell Distribution Width 14.3 % (11.5-17.5); White Blood Count 11.6 K/mm3 (4.8-10.8)
[2021-10-28 17:18] LABS: Alanine Aminotransferase 15 U/L (12-78); Albumin Level 4.4 g/dl (3.5-5.0); Albumin/Globulin Ratio 1.4 (1.1-1.8); Alkaline Phosphatase 169 U/L (38-126); Aspartate Amino Transferase 29 U/L (14-36); Bilirubin,Total 0.3 mg/dl (0.2-1.3); Blood Urea Nitrogen 13 mg/dl (7-17); Calcium 9.7 mg/dl (8.4-10.2); Carbon Dioxide 26 mmol/L (22.0-30.0); Chloride 107 mmol/L (98-107); Creatine Kinase 75 U/L (30-135); Estimated Glomerular Filt Rate 90 ml/min (>60); GFR (African American) 109 ML/MIN (>60); Globulin 3.2 g/dL (1.3-3.2); Glucose 60 mg/dl (74-100); Sodium 140 mmol/L (136-145); Total Protein,Serum 7.6 g/dl (6.3-8.2)
[2021-10-28 17:24] LABS: C-Reactive Protein 19.1 mg/L (0-4)
== END ==
PROVIDERS: Visit Provider Internal Medicine Infectious Disease
DX: Z51.81 Encounter for therapeutic drug level monitoring (principal)
CPT/HCPCS: 80053; 82550; 85025; 86140

== ENCOUNTER 2021-11-04 15:23 | Outpatient (CLI) | payer OTHER, SELFPAY ==
[2021-11-04 15:23] VITALS: BMI 28.3
[2021-11-04 16:02] LABS: Alanine Aminotransferase 28 U/L (12-78); Albumin Level 4.7 g/dl (3.5-5.0); Albumin/Globulin Ratio 1.2 (1.1-1.8); Alkaline Phosphatase 190 U/L (38-126); Anion Gap 15.6 mEq/L (5-15); Aspartate Amino Transferase 46 U/L (14-36); Bilirubin,Total 0.4 mg/dl (0.2-1.3); Blood Urea Nitrogen 13 mg/dl (7-17); Calcium 10.1 mg/dl (8.4-10.2); Carbon Dioxide 24 mmol/L (22.0-30.0); Chloride 104 mmol/L (98-107); Creatine Kinase 144 U/L (30-135); Creatinine Clearance Estimated 107 mL/min (50-200); Estimated Glomerular Filt Rate 90 ml/min (>60); GFR (African American) 109 ML/MIN (>60); Globulin 3.9 g/dL (1.3-3.2); Glucose 109 mg/dl (74-100); Potassium 4.6 mmoL/L (3.5-5.1); Sodium 139 mmol/L (136-145); Total Protein,Serum 8.6 g/dl (6.3-8.2)
[2021-11-04 16:08] LABS: C-Reactive Protein 7.9 mg/L (0-4)
[2021-11-04 16:15] LABS: Basophils # 0.1 K/mm3 (0-0.2); Basophils % 0.8 % (0.1-2.0); Eosinophils # 1.4 K/mm3 (0.0-0.4); Eosinophils % 10.3 % (0.1-12.0); Hematocrit 40.9 % (37.0-47.0); Hemoglobin 13.9 g/dL (12.2-16.2); Lymphocytes # 3.1 K/mm3 (0.7-4.5); Lymphocytes % 23.6 % (10-50); Mean Corpuscular HGB Conc 34.1 g/dL (31.8-35.4); Mean Corpuscular Hemoglobin 28.7 pg (27.0-31.2); Mean Corpuscular Volume 84.3 fl (81-99); Mean Platelet Volume 7.7 fl (7.4-10.4); Monocytes # 0.7 K/mm3 (0.1-1.0); Neutrophils % 60.3 % (37.0-80.0); Platelet Count 492 K/mm3 (142-424); Red Blood Count 4.85 M/mm3 (4.20-5.40); Red Cell Distribution Width 13.6 % (11.5-17.5); White Blood Count 13.3 K/mm3 (4.8-10.8)
== END 2021-11-04 16:00 | disposition home or self-care (01) ==
LOC: INF 15:32
PROVIDERS: PCP Internal Medicine; Visit Provider Orthopaedic Surgery Orthopaedic Surgery of the Spine
DX: Z45.2 Encounter for adjustment and management of vascular access device (principal); M86.9 Osteomyelitis, unspecified; I10 Essential (primary) hypertension
CPT/HCPCS: 80053; 82550; 85025; 86140

== ENCOUNTER → 2021-11-10 10:29 | Outpatient (CLI) | payer OTHER, SELFPAY ==
[2021-11-10 11:13] LABS: Basophils # 0.1 K/mm3 (0-0.2); Basophils % 0.9 % (0.1-2.0); Eosinophils # 2.2 K/mm3 (0.0-0.4); Eosinophils % 19.3 % (0.1-12.0); Hematocrit 35.7 % (37.0-47.0); Lymphocytes # 2.6 K/mm3 (0.7-4.5); Lymphocytes % 23.8 % (10-50); Mean Corpuscular HGB Conc 33.6 g/dL (31.8-35.4); Mean Corpuscular Hemoglobin 29.3 pg (27.0-31.2); Mean Corpuscular Volume 87.1 fl (81-99); Mean Platelet Volume 8.3 fl (7.4-10.4); Monocytes # 0.8 K/mm3 (0.1-1.0); Monocytes % 7.3 % (1.7-9.3); Neutrophils # 5.4 K/mm3 (1.8-7.8); Neutrophils % 48.6 % (37.0-80.0); Platelet Count 319 K/mm3 (142-424); Red Cell Distribution Width 13.5 % (11.5-17.5); White Blood Count 11.1 K/mm3 (4.8-10.8)
[2021-11-10 11:21] LABS: Alanine Aminotransferase 31 U/L (12-78); Albumin Level 4.2 g/dl (3.5-5.0); Albumin/Globulin Ratio 1.4 (1.1-1.8); Alkaline Phosphatase 144 U/L (38-126); Anion Gap 14.3 mEq/L (5-15); Aspartate Amino Transferase 44 U/L (14-36); Bilirubin,Total 0.3 mg/dl (0.2-1.3); Blood Urea Nitrogen 11 mg/dl (7-17); Calcium 9.9 mg/dl (8.4-10.2); Carbon Dioxide 24 mmol/L (22.0-30.0); Chloride 103 mmol/L (98-107); Creatine Kinase 114 U/L (30-135); Estimated Glomerular Filt Rate 77 ml/min (>60); GFR (African American) 93 ML/MIN (>60); Globulin 3.1 g/dL (1.3-3.2); Glucose 103 mg/dl (74-100); Potassium 4.3 mmoL/L (3.5-5.1); Sodium 137 mmol/L (136-145); Total Protein,Serum 7.3 g/dl (6.3-8.2)
[2021-11-10 11:27] LABS: C-Reactive Protein 17.9 mg/L (0-4)
== END ==
LOC: LAB 10:30 → LAB.DROPOF 10:31
PROVIDERS: Visit Provider Orthopaedic Surgery Orthopaedic Surgery of the Spine
DX: D64.9 Anemia, unspecified (principal); R74.8 Abnormal levels of other serum enzymes
CPT/HCPCS: 80053; 82550; 85025; 86140

== ENCOUNTER → 2021-11-17 16:17 | Outpatient (CLI) | payer OTHER, SELFPAY ==
[2021-11-17 16:32] LABS: Basophils # 0.1 K/mm3 (0-0.2); Eosinophils % 13.9 % (0.1-12.0); Hematocrit 36.5 % (37.0-47.0); Hemoglobin 11.9 g/dL (12.2-16.2); Lymphocytes # 1.8 K/mm3 (0.7-4.5); Lymphocytes % 24.6 % (10-50); Mean Corpuscular HGB Conc 32.6 g/dL (31.8-35.4); Mean Corpuscular Hemoglobin 28.7 pg (27.0-31.2); Mean Corpuscular Volume 87.8 fl (81-99); Mean Platelet Volume 8.4 fl (7.4-10.4); Monocytes # 0.4 K/mm3 (0.1-1.0); Monocytes % 5.4 % (1.7-9.3); Neutrophils % 54.2 % (37.0-80.0); Platelet Count 295 K/mm3 (142-424); Red Blood Count 4.15 M/mm3 (4.20-5.40); Red Cell Distribution Width 14.4 % (11.5-17.5); White Blood Count 7.3 K/mm3 (4.8-10.8)
[2021-11-17 16:40] LABS: Alanine Aminotransferase 38 U/L (12-78); Albumin Level 4.2 g/dl (3.5-5.0); Albumin/Globulin Ratio 1.2 (1.1-1.8); Alkaline Phosphatase 158 U/L (38-126); Anion Gap 12.8 mEq/L (5-15); Aspartate Amino Transferase 45 U/L (14-36); Bilirubin,Total 0.3 mg/dl (0.2-1.3); Blood Urea Nitrogen 13 mg/dl (7-17); Calcium 9.6 mg/dl (8.4-10.2); Carbon Dioxide 24 mmol/L (22.0-30.0); Chloride 103 mmol/L (98-107); Creatine Kinase 50 U/L (30-135); Estimated Glomerular Filt Rate 90 ml/min (>60); GFR (African American) 109 ML/MIN (>60); Globulin 3.4 g/dL (1.3-3.2); Glucose 126 mg/dl (74-100); Potassium 3.8 mmoL/L (3.5-5.1); Sodium 136 mmol/L (136-145); Total Protein,Serum 7.6 g/dl (6.3-8.2)
[2021-11-17 16:48] LABS: C-Reactive Protein 5.7 mg/L (0-4)
== END ==
PROVIDERS: Visit Provider Internal Medicine Infectious Disease
DX: R73.9 Hyperglycemia, unspecified (principal)
CPT/HCPCS: 80053; 82550; 85025; 86140

== ENCOUNTER → 2021-11-24 17:27 | Outpatient (CLI) | payer OTHER, SELFPAY ==
[2021-11-24 17:31] LABS: MANUAL DIFFERENTIAL MANUAL DIFFERENTIAL (MANUAL DIFF)
[2021-11-24 17:45] LABS: Basophils # 0.1 K/mm3 (0-0.2); Basophils % 1.1 % (0.1-2.0); Eosinophils # 1.2 K/mm3 (0.0-0.4); Hematocrit 31.1 % (37.0-47.0); Hemoglobin 10.3 g/dL (12.2-16.2); Lymphocytes # 1.9 K/mm3 (0.7-4.5); Lymphocytes % 28.9 % (10-50); Mean Corpuscular Volume 87.9 fl (81-99); Mean Platelet Volume 8.4 fl (7.4-10.4); Monocytes # 0.4 K/mm3 (0.1-1.0); Monocytes % 5.6 % (1.7-9.3); Neutrophils % 46.4 % (37.0-80.0); Platelet Count 357 K/mm3 (142-424); Red Blood Count 3.54 M/mm3 (4.20-5.40); Red Cell Distribution Width 14.7 % (11.5-17.5); White Blood Count 6.5 K/mm3 (4.8-10.8)
[2021-11-24 17:53] LABS: Alanine Aminotransferase 90 U/L (12-78); Albumin Level 3.9 g/dl (3.5-5.0); Albumin/Globulin Ratio 1.3 (1.1-1.8); Alkaline Phosphatase 139 U/L (38-126); Anion Gap 9.8 mEq/L (5-15); Aspartate Amino Transferase 88 U/L (14-36); Bilirubin,Total 0.5 mg/dl (0.2-1.3); Blood Urea Nitrogen 9 mg/dl (7-17); Carbon Dioxide 26 mmol/L (22.0-30.0); Chloride 104 mmol/L (98-107); Estimated Glomerular Filt Rate 90 ml/min (>60); GFR (African American) 109 ML/MIN (>60); Globulin 3.1 g/dL (1.3-3.2); Glucose 142 mg/dl (74-100); Potassium 3.8 mmoL/L (3.5-5.1); Sodium 136 mmol/L (136-145)
[2021-11-24 17:59] LABS: C-Reactive Protein 63.6 mg/L (0-4)
[2021-11-24 18:12] LABS: Eosinophils % 20 % (0-3); Lymphocytes % 32 % (10-50); Monocytes % 6 % (2-9); Neutrophils % 42 % (42-76); Platelet Estimate Normal; RBC Morphology Normal; Total Cells Counted 100
== END ==
PROVIDERS: Visit Provider Internal Medicine Infectious Disease
DX: R74.8 Abnormal levels of other serum enzymes (principal)
CPT/HCPCS: 80053; 85007; 85014; 85018; 85048; 85049; 86140

== ENCOUNTER → 2021-12-01 11:47 | Outpatient (CLI) | payer OTHER, SELFPAY ==
[2021-12-01 12:02] LABS: Basophils # 0.1 K/mm3 (0-0.2); Basophils % 1.4 % (0.1-2.0); Eosinophils # 1.2 K/mm3 (0.0-0.4); Eosinophils % 12.4 % (0.1-12.0); Hematocrit 35.5 % (37.0-47.0); Hemoglobin 11.6 g/dL (12.2-16.2); Lymphocytes # 2.7 K/mm3 (0.7-4.5); Lymphocytes % 27.6 % (10-50); Mean Corpuscular HGB Conc 32.6 g/dL (31.8-35.4); Mean Corpuscular Hemoglobin 28.6 pg (27.0-31.2); Mean Corpuscular Volume 87.6 fl (81-99); Mean Platelet Volume 8.2 fl (7.4-10.4); Monocytes # 0.4 K/mm3 (0.1-1.0); Monocytes % 4.3 % (1.7-9.3); Neutrophils # 5.2 K/mm3 (1.8-7.8); Neutrophils % 54.3 % (37.0-80.0); Platelet Count 420 K/mm3 (142-424); Red Blood Count 4.05 M/mm3 (4.20-5.40); Red Cell Distribution Width 14.5 % (11.5-17.5); White Blood Count 9.7 K/mm3 (4.8-10.8)
[2021-12-01 12:13] LABS: Chloride 103 mmol/L (98-107); Sodium 137 mmol/L (136-145)
[2021-12-01 12:16] LABS: Alanine Aminotransferase 35 U/L (12-78); Alkaline Phosphatase 165 U/L (38-126); Aspartate Amino Transferase 37 U/L (14-36); Bilirubin,Total 0.5 mg/dl (0.2-1.3); Blood Urea Nitrogen 13 mg/dl (7-17); Carbon Dioxide 26 mmol/L (22.0-30.0); Creatine Kinase 63 U/L (30-135); Estimated Glomerular Filt Rate 90 ml/min (>60); GFR (African American) 109 ML/MIN (>60)
[2021-12-01 12:17] LABS: Albumin Level 4.4 g/dl (3.5-5.0); Albumin/Globulin Ratio 1.4 (1.1-1.8); Calcium 9.7 mg/dl (8.4-10.2); Globulin 3.1 g/dL (1.3-3.2); Glucose 114 mg/dl (74-100); Total Protein,Serum 7.5 g/dl (6.3-8.2)
[2021-12-01 12:22] LABS: C-Reactive Protein 12.3 mg/L (0-4)
== END ==
PROVIDERS: Visit Provider Internal Medicine Infectious Disease
DX: I10 Essential (primary) hypertension (principal); D64.9 Anemia, unspecified
CPT/HCPCS: 80053; 82550; 85025; 86140

== ENCOUNTER → 2021-12-09 11:15 | Outpatient (CLI) | payer OTHER, SELFPAY ==
[2021-12-09 11:30] LABS: Basophils # 0.1 K/mm3 (0-0.2); Basophils % 1.5 % (0.1-2.0); Eosinophils % 11.9 % (0.1-12.0); Hematocrit 38.7 % (37.0-47.0); Hemoglobin 12.5 g/dL (12.2-16.2); Lymphocytes # 2.4 K/mm3 (0.7-4.5); Lymphocytes % 28.1 % (10-50); Mean Corpuscular HGB Conc 32.2 g/dL (31.8-35.4); Mean Corpuscular Hemoglobin 28.1 pg (27.0-31.2); Mean Corpuscular Volume 87.2 fl (81-99); Mean Platelet Volume 8.5 fl (7.4-10.4); Monocytes # 0.3 K/mm3 (0.1-1.0); Monocytes % 3.7 % (1.7-9.3); Neutrophils # 4.7 K/mm3 (1.8-7.8); Neutrophils % 54.9 % (37.0-80.0); Platelet Count 380 K/mm3 (142-424); Red Blood Count 4.44 M/mm3 (4.20-5.40); Red Cell Distribution Width 14.8 % (11.5-17.5); White Blood Count 8.6 K/mm3 (4.8-10.8)
[2021-12-09 11:35] LABS: Chloride 109 mmol/L (98-107)
[2021-12-09 11:36] LABS: Potassium 4.9 mmoL/L (3.5-5.1); Sodium 134 mmol/L (136-145)
[2021-12-09 11:38] LABS: Alanine Aminotransferase 21 U/L (12-78); Alkaline Phosphatase 153 U/L (38-126); Anion Gap 8.9 mEq/L (5-15); Aspartate Amino Transferase 35 U/L (14-36); Bilirubin,Total 0.5 mg/dl (0.2-1.3); Blood Urea Nitrogen 17 mg/dl (7-17); Carbon Dioxide 21 mmol/L (22.0-30.0); Estimated Glomerular Filt Rate 90 ml/min (>60); GFR (African American) 109 ML/MIN (>60)
[2021-12-09 11:39] LABS: Albumin Level 4.5 g/dl (3.5-5.0); Albumin/Globulin Ratio 1.2 (1.1-1.8); Calcium 9.7 mg/dl (8.4-10.2); Creatine Kinase 58 U/L (30-135); Globulin 3.8 g/dL (1.3-3.2); Glucose 120 mg/dl (74-100); Total Protein,Serum 8.3 g/dl (6.3-8.2)
[2021-12-09 11:44] LABS: C-Reactive Protein 6.1 mg/L (0-4)
== END ==
PROVIDERS: Visit Provider Internal Medicine Infectious Disease
DX: I10 Essential (primary) hypertension (principal); M51.36 Other intervertebral disc degeneration, lumbar region; M00.80 Arthritis due to other bacteria, unspecified joint; F41.9 Anxiety disorder, unspecified; F32.9 Major depressive disorder, single episode, unspecified
CPT/HCPCS: 80053; 82550; 85025; 86140

== ENCOUNTER 2022-01-26 16:20 | Emergency (ER) | payer OTHER, SELFPAY ==
--- NOTE | 2022-01-26 17:25 | HMH.EDUTC ---
[facility] [place] Disposition Clinical Impression: Viral syndrome, Exposure to COVID-19 virus Disposition: Home, Self-Care Condition on Discharge: Good Instructions: Promethazine, DI for COVID-19 (Suspected or Confirmed ), Preventing the Spread of Coronavirus Discharge Instructions Additional Instructions: Drink plenty of fluids. Take tylenol or ibuprofen for pain or fever. Follow up with your regular doctor. GO TO THE ER FOR ANY WORSENING SYMPTOMS Quarantine until you know the results of your covid-19 test. Notify your school or workplace of your results and follow their instructions regarding return to work/school. The promethazine will make you drowsy, so don't drive or operate heavy machinery after taking it. Prescriptions: Promethazine HCl [Phenergan 25mg tab] 25 mg PO Q6H PRN #20 tab PRN Reason: Nausea And Vomiting Transmission Status: Received by [facility] Referrals: Mahesh Aranda MD [Primary Care Provider] - Time of Disposition: 17:57 Medical Decision Making - Medical Records Medical records reviewed: Yes: I reviewed the patient's medical records. - David Inquiry Pt receiving controlled substance: No Vital Signs: 01/26/22 17:30 01/26/22 17:47 Temperature 98 F 98 F Temperature Source Oral Pulse Rate 86 Pulse Rate [Left] 86 Respiratory Rate 16 16 Blood Pressure 143/93 H Blood Pressure [Right Arm] 141/93 H Blood Pressure Mean [Right Arm] 109 02 Sat by Pulse Oximetry 95 - Lab Data Lab results reviewed: No: I reviewed the patient's lab results. [facility] HPI - General Stated complaint: covid test Time Seen by Provider: 01/26/22 17:26 - History of Present Illness Provider Complaint: She is here to get a covid-19 test. She has been having n/v/d since yesterday. She denies any fever - Related Data Home Medications Medication Instructions Recorded Confirmed Gabapentin [Neurontin 600mg 600 mg PO QID 03/10/18 03/10/18 tablet] Metoprolol Tartrate 50 mg PO BID 03/10/18 03/10/18 Oxycodone HCl/Acetaminophen 1 tab PO QIDP PRN 03/10/18 03/10/18 [Percocet 7.5/325mg tablet] Tizanidine HCl [Zanaflex 4mg 4 mg PO TID 03/10/18 03/10/18 tablet] Trazodone HCl [Desyrel 50mg tablet] 50 mg PO BID 03/10/18 03/10/18 Venlafaxine HCl [Venlafaxine HCl 75 mg PO DAILY 03/10/18 03/10/18 ER] Zolpidem Tartrate [Ambien 10mg 10 mg PO HS 03/10/18 03/10/18 tablet] Previous Rx's Medication Instructions Recorded Promethazine HCl [Phenergan 25mg 25 mg PO Q6H PRN #20 tab 01/26/22 tab] Allergies Allergy/AdvReac Type Severity Reaction Status Date / Time morphine [MORPHINE] Allergy Unknown na Verified 05/04/20 19:46 Sulfa (Sulfonamide Allergy Unknown na Verified 05/04/20 19:46 Antibiotics) [SULFA (SULFONAMIDE ANTIBIOTICS)] sulfamethoxazole Allergy Unknown na Verified 05/04/20 19:46 [From BACTRIM] trimethoprim [From BACTRIM] Allergy Unknown na Verified 05/04/20 19:46 [facility] History - Hepatitis A Screen Attestation statement:: This patient has been screened for Hepatitis A risk factors. I have reviewed the patient's past medical history: Yes Medical History: Reports:: Deep Vein Thrombosis, Hypertension Denies:: Cancer, Diabetes Mellitus Type 1, Diabetes Mellitus Type 2, MRSA Other Medical History: Reports: Anemia, Arthritis, Thyroid Disease (hyperthyroidism) Other Surgeries: Yes: Appendectomy, Other (spinal) Amputation: No Fractures: No - Social History Smoking Status: Current every day smoker Tobacco Type: cigarettes # Packs/Day (cigarettes): 1 #Yrs smoked (if former smoker): 15 Alcohol Intake: never Substance Use Type: former substance user Occupational Status: disabled Housing: house Household Members: other Family Hx:: Anemia, Cancer, Diabetes, Heart Attack, Hyperlipidemia, Hypertension, Kidney Disease, Stroke ROS Obtained: Yes All systems reviewed & no additional complaints - Co
[2022-01-26 17:30] VITALS: BP 141/93; PULSE 86; RESP 16; TEMP 36.6; O2SAT 95; BMI 27.4
[2022-01-26 17:47] VITALS: BP 143/93; PULSE 86; RESP 16; TEMP 36.6
== END 2022-01-26 17:58 | disposition home or self-care (01) ==
LOC: UTC 16:22
PROVIDERS: Emergency Provider Nurse Practitioner Family; PCP Internal Medicine
DX: B34.9 Viral infection, unspecified (principal); I10 Essential (primary) hypertension; E03.9 Hypothyroidism, unspecified; D64.9 Anemia, unspecified; M19.90 Unspecified osteoarthritis, unspecified site; Z20.822 Contact with and (suspected) exposure to COVID-19; Z79.899 Other long term (current) drug therapy; Z88.2 Allergy status to sulfonamides; Z88.5 Allergy status to narcotic agent; Z88.8 Allergy status to other drugs, medicaments and biological substances; Z82.49 Family history of ischemic heart disease and other diseases of the circulatory system; Z83.3 Family history of diabetes mellitus; Z80.9 Family history of malignant neoplasm, unspecified; Z83.2 Family history of diseases of the blood and blood-forming organs and certain disorders involving the immune mechanism; Z84.1 Family history of disorders of kidney and ureter
CPT/HCPCS: 99213; C9803; G0463; U0003; U0005

== ENCOUNTER → 2022-10-23 13:04 | Outpatient (CLI) | payer OTHER, SELFPAY ==
--- NOTE | 2022-10-23 | CA_ITS ---
FINAL REPORT TECHNIQUE: Multiple transverse and longitudinal images were performed of right the femoral-popliteal deep venous system with augmentation and compression maneuvers. CLINICAL HISTORY: .s/p Back & knee surgery 2 months ago FINDINGS: Right lower extremity duplex ultrasound demonstrates normal flow in the deep venous system. There is no abnormal echogenicity to suggest thrombus. There is normal compression and augmentation. IMPRESSION: No evidence of right DVT. Reviewed, Interpreted and Dictated by Frandy Brady MD Transcribed by Ky Le Authenticated and [facility]
== END ==
PROVIDERS: PCP Internal Medicine; Visit Provider Internal Medicine
DX: M79.661 Pain in right lower leg (principal); Z86.718 Personal history of other venous thrombosis and embolism
CPT/HCPCS: 93971

== ENCOUNTER → 2022-11-04 15:10 | Outpatient (CLI) | payer OTHER, SELFPAY ==
[2022-11-04 15:54] LABS: Alanine Aminotransferase 22 U/L (12-78); Albumin Level 4.6 g/dl (3.5-5.0); Albumin/Globulin Ratio 1.8 (1.1-1.8); Alkaline Phosphatase 165 U/L (38-126); Anion Gap 13.5 mEq/L (5-15); Aspartate Amino Transferase 27 U/L (14-36); Bilirubin,Total 0.3 mg/dl (0.2-1.3); Blood Urea Nitrogen 17 mg/dl (7-17); Calcium 10.3 mg/dl (8.4-10.2); Carbon Dioxide 24 mmol/L (22.0-30.0); Chloride 107 mmol/L (98-107); Estimated Glomerular Filt Rate 59 ml/min (>60); GFR (African American) 72 ML/MIN (>60); Globulin 2.6 g/dL (1.3-3.2); Glucose 93 mg/dl (74-100); Potassium 4.5 mmoL/L (3.5-5.1); Sodium 140 mmol/L (136-145); Total Protein,Serum 7.2 g/dl (6.3-8.2)
[2022-11-04 15:58] LABS: Basophils # 0.1 K/mm3 (0-0.2); Eosinophils # 0.4 K/mm3 (0.0-0.4); Eosinophils % 5.4 % (0.1-12.0); Hematocrit 39.3 % (37.0-47.0); Hemoglobin 13.3 g/dL (12.2-16.2); Lymphocytes # 2.7 K/mm3 (0.7-4.5); Lymphocytes % 34.3 % (10-50); Mean Corpuscular HGB Conc 33.9 g/dL (31.8-35.4); Mean Corpuscular Hemoglobin 29.5 pg (27.0-31.2); Mean Platelet Volume 8.3 fl (7.4-10.4); Monocytes # 0.5 K/mm3 (0.1-1.0); Monocytes % 5.8 % (1.7-9.3); Neutrophils # 4.3 K/mm3 (1.8-7.8); Neutrophils % 53.6 % (37.0-80.0); Platelet Count 334 K/mm3 (142-424); Red Blood Count 4.52 M/mm3 (4.20-5.40); Red Cell Distribution Width 13.4 % (11.5-17.5)
[2022-11-04 15:59] LABS: C-Reactive Protein 3.8 mg/L (0-4)
[2022-11-04 16:26] LABS: Erythrocyte Sedimentation Rate 25 mm/hr (0-20)
== END ==
PROVIDERS: PCP Internal Medicine; Visit Provider Internal Medicine
DX: M79.604 Pain in right leg (principal); Z87.39 Personal history of other diseases of the musculoskeletal system and connective tissue
CPT/HCPCS: 80053; 85025; 85651; 86140

== ENCOUNTER → 2023-01-01 15:40 | Outpatient (CLI) | payer OTHER, SELFPAY ==
--- NOTE | 2023-01-01 15:45 | XR_ITS ---
FINAL REPORT CLINICAL HISTORY: R LOWER LEG PAIN FINDINGS: Right tibia fibula Three views were obtained. There is no acute fracture or dislocation. The joint spaces appear normal. No soft tissue abnormality is identified. IMPRESSION: No acute process. Reviewed, Interpreted and Dictated by Frandy Brady MD Transcribed by Sophia Aburto Authenticated and [facility]
== END ==
LOC: RAD 15:41
PROVIDERS: PCP Internal Medicine; Visit Provider Internal Medicine
DX: M79.661 Pain in right lower leg (principal)
CPT/HCPCS: 73590

== ENCOUNTER 2023-01-10 19:57 | Emergency (ER) | payer OTHER, SELFPAY ==
[2023-01-10] VITALS (8 sets, daily range): BP systolic 115–146; BP diastolic 81–106; PULSE 88–140; RESP 14–20; TEMP 36.7–36.8; O2SAT 94–97; BMI 30.2
--- NOTE | 2023-01-10 20:10 | PC.NURSE ---
difficulty keeping monitoring devices on pt r/t pt writhing around in bed, cynthia rails up on stretcher. pt mother at will continue to monitor
--- NOTE | 2023-01-10 20:13 | PC.NURSE ---
DHRUV BOWMAN at
--- NOTE | 2023-01-10 20:16 | HMH.EDBACK ---
Discharge Plan Disposition Patient Disposition: Home, Self-Care Chief Complaint: Back Pain/Injury Prescriptions Prescriptions: No Action tizanidine 4 MG Tablet 4 mg PO TID venlafaxine 75 MG Tab.Er.24 75 mg PO DAILY gabapentin 600 MG Tablet 600 mg PO QID metoprolol tartrate 50 MG Tablet 50 mg PO BID zolpidem 10 MG Tablet 10 mg PO HS oxycodone-acetaminophen 1 EACH Tablet 1 tab PO QIDP PRN (Reason: Moderate To Severe Pain) trazodone 50 MG Tablet 50 mg PO BID promethazine 25 MG tablet 25 mg PO Q6H PRN (Reason: Nausea And Vomiting) Qty: 20 0RF Referrals Follow up/Referrals: Provider,Referral, MD [Referring] - See instructions Clinical Impressions Clinical Impression: Adverse effects of medication, Lumbar radiculopathy Instructions Patient Instructions: DI for Low Back Pain Discharge ED Provider: Sia (ED),Akhil Suresh Back Pain HPI General Chief Complaint: Back Pain/Injury Stated Complaint: back pain Time Seen by Provider: 01/10/23 20:16 Mode of Arrival: EMS Source of Information: Patient, Relative and Medical Record Limitations: No Limitations Description of Symptoms (Recalled from ER Triage Doc. 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 Pt mother reports a friend of pts gave her a cbd gummy to help with her back pain, pt mother reports that pt began writhing in pain no long after taking the gummy. Pt mother reports pt has chronic back pain after multiple back surgeries. History of Present Illness HPI Narrative: has lower back pain about 2 hrs ago after eating cbd gummy - pt in methadone clinic Complaint: back pain Onset (ago): hour(s) Duration: intermittent Severity: moderate Associated symptoms: denies other symptoms Pertinent Issues R/T Back Pain: Other (methadone clinic ) Related Data Home Medications Medication Instructions Recorded Confirmed gabapentin 600 mg tablet 600 mg PO QID NEUROPATHY 03/10/18 03/10/18 metoprolol tartrate 50 mg tablet 50 mg PO BID Hypertension 03/10/18 03/10/18 oxycodone-acetaminophen 7.5 mg-325 1 tab PO QIDP PRN Moderate To 03/10/18 03/10/18 mg tablet Severe Pain tizanidine 4 mg tablet 4 mg PO TID muscle relaxer 03/10/18 03/10/18 trazodone 50 mg tablet 50 mg PO BID MOOD 03/10/18 03/10/18 venlafaxine 75 mg tablet,extended 75 mg PO DAILY MOOD 03/10/18 03/10/18 release 24 hr zolpidem 10 mg tablet 10 mg PO HS SLEEP 03/10/18 03/10/18 Previous Rx's Medication Instructions Recorded promethazine 25 mg tablet 25 mg PO Q6H PRN Nausea And 01/26/22 Vomiting #20 tabs Allergies Allergy/AdvReac Type Severity Reaction Status Date / Time morphine [MORPHINE] Allergy Unknown na Verified 05/04/20 19:46 Sulfa (Sulfonamide Allergy Unknown na Verified 05/04/20 19:46 Antibiotics) [SULFA (SULFONAMIDE ANTIBIOTICS)] sulfamethoxazole Allergy Unknown na Verified 05/04/20 19:46 [From BACTRIM] trimethoprim [From BACTRIM] Allergy Unknown na Verified 05/04/20 19:46 PFSH PFS Disclaimer: The information contained in this section may have been updated after the patient was seen, as this information can be updated by other users. Social History Smoking Status: Current every day smoker tobacco type: cigarettes packs per day: 1 second hand exposure: Yes alcohol intake: never substance use type: former substance user current occupational status: disabled Travel in the last 8 weeks: None household members: other housing: house current occupation: disabled current occupational exposures/hazards: No caffeine: Yes ROS Obtained: Yes All systems reviewed & no additional complaints except as documented Physical Exam General General appearance: alert Head Head exam: normocephalic Eye Eye exam: Present PERRL and EOMI ENT ENT exam: Present mucous membranes moist Neck Neck exam: Present trachea midline Respiratory Respiratory exam: Absent respiratory dis
[2023-01-10 20:29] LABS: Basophils # 0.1 K/mm3 (0-0.2); Eosinophils # 0.6 K/mm3 (0.0-0.4); Eosinophils % 5.4 % (0.1-12.0); Hematocrit 38.9 % (37.0-47.0); Hemoglobin 13.4 g/dL (12.2-16.2); Lymphocytes # 4.6 K/mm3 (0.7-4.5); Lymphocytes % 39.2 % (10-50); Mean Corpuscular HGB Conc 34.3 g/dL (31.8-35.4); Mean Corpuscular Hemoglobin 29.8 pg (27.0-31.2); Mean Corpuscular Volume 86.9 fl (81-99); Mean Platelet Volume 8.1 fl (7.4-10.4); Monocytes # 0.5 K/mm3 (0.1-1.0); Monocytes % 4.5 % (1.7-9.3); Neutrophils # 5.8 K/mm3 (1.8-7.8); Neutrophils % 49.9 % (37.0-80.0); Platelet Count 361 K/mm3 (142-424); Red Blood Count 4.48 M/mm3 (4.20-5.40); Red Cell Distribution Width 13.3 % (11.5-17.5); White Blood Count 11.7 K/mm3 (4.8-10.8)
[2023-01-10 20:31] LABS: Chloride 109 mmol/L (98-107); Potassium 3.3 mmoL/L (3.5-5.1); Sodium 140 mmol/L (136-145)
[2023-01-10 20:34] LABS: Alanine Aminotransferase 30 U/L (12-78); Albumin Level 4.6 g/dl (3.5-5.0); Albumin/Globulin Ratio 1.4 (1.1-1.8); Alkaline Phosphatase 125 U/L (38-126); Anion Gap 11.3 mEq/L (5-15); Aspartate Amino Transferase 35 U/L (14-36); Bilirubin,Total 0.4 mg/dl (0.2-1.3); Blood Urea Nitrogen 13 mg/dl (7-17); Carbon Dioxide 23 mmol/L (22.0-30.0); Creatinine Clearance Estimated 113 mL/min (50-200); Estimated Glomerular Filt Rate 89 ml/min (>60); GFR (African American) 108 ML/MIN (>60); Globulin 3.2 g/dL (1.3-3.2); Total Protein,Serum 7.8 g/dl (6.3-8.2)
[2023-01-10 20:35] LABS: Calcium 8.9 mg/dl (8.4-10.2); Glucose 90 mg/dl (74-100)
--- NOTE | 2023-01-10 20:36 | PC.NURSE ---
Rounded on patient; cleaned patient up after she threw up
--- NOTE | 2023-01-10 21:10 | PC.NURSE ---
pt sleeping at this time, will continue to monitor cynthia bed rails up on stretcher
--- NOTE | 2023-01-10 22:29 | PC.NURSE ---
in room checking on pt, pt was sleeping when I entered her room, pt woke up, pt still drowsy, reports feeling better when asked.
--- NOTE | 2023-01-10 22:37 | PC.NURSE ---
pt will wake up and answer some questions, still drowsy but easily alertable.
--- NOTE | 2023-01-10 22:37 | PC.NURSE ---
Rounded on patient, no needs at this time.
== END 2023-01-10 23:29 | disposition home or self-care (01) ==
PROVIDERS: Emergency Provider Emergency Medicine; PCP Internal Medicine
DX: T40.715A Adverse effect of cannabis, initial encounter (principal); M54.16 Radiculopathy, lumbar region; X58.XXXA Exposure to other specified factors, initial encounter; F17.210 Nicotine dependence, cigarettes, uncomplicated
CPT/HCPCS: 80053; 85025; 96374; 96375; 99284; 99285

== ENCOUNTER → 2023-06-25 16:01 | Outpatient (CLI) | payer OTHER, SELFPAY ==
--- NOTE | 2023-06-25 16:05 | XR_ITS ---
FINAL REPORT CLINICAL HISTORY: RT KNEE PAIN, SWELLING, FALL X 1 WEEK AGO FINDINGS: Right knee Three views were obtained. There is no acute fracture or dislocation. There are mild and moderate degenerative changes. Large joint effusion is identified. IMPRESSION: Large joint effusion. Reviewed, Interpreted and Dictated by Singh Morales III, MD Transcribed by Sophia Aburto Authenticated and [facility]
== END ==
PROVIDERS: PCP Internal Medicine; Visit Provider Internal Medicine
DX: M25.561 Pain in right knee (principal); M25.461 Effusion, right knee; W19.XXXA Unspecified fall, initial encounter
CPT/HCPCS: 73562

== ENCOUNTER 2023-08-19 23:20 | Emergency (ER) | payer OTHER, SELFPAY ==
[2023-08-19 23:20] VITALS: BP 141/88; PULSE 111; RESP 18; O2SAT 95; BMI 73.3
--- NOTE | 2023-08-19 23:22 | XR_ITS ---
PROCEDURE INFORMATION: Exam: XR Left Humerus Exam date and time: 08/20/2023 12:04 AM Age: 48 years old Clinical indication: Injury or trauma; Fall; Blunt trauma (contusions or hematomas); Arm, upper; Left TECHNIQUE: Imaging protocol: Radiologic exam of the left humerus. Views: 2 or more views. COMPARISON: CR CXR1VP XR chest portable 03/09/2018 4:59 PM FINDINGS: Bones/joints: No acute fracture or malalignment. Chronic Hill-Sachs deformity. Soft tissues: Normal. IMPRESSION: No acute osseous findings.
--- NOTE | 2023-08-19 23:22 | CT_ITS ---
PROCEDURE INFORMATION: Exam: CT Thoracic Spine Without Contrast Exam date and time: 08/19/2023 11:43 PM Age: 48 years old Clinical indication: Injury or trauma; Fall; Blunt trauma (contusions or hematomas) TECHNIQUE: Imaging protocol: Computed tomography of the thoracic spine without contrast. Radiation optimization: All CT scans at this facility use at least one of these dose optimization techniques: automated exposure control; mA and/or kV adjustment per patient size (includes targeted exams where dose is matched to clinical indication); or iterative reconstruction. REPORTING DATA: Count of CT and Cardiac NM exams in prior 12 months: This patient has received 0 known CTs and 0 known cardiac nuclear medicine studies in the 12 months prior to the current study. COMPARISON: CR CXR1VP XR chest portable 03/09/2018 4:59 PM FINDINGS: Bones/joints: Thoracic vertebrae normal in height. Mild rightward curvature of the upper thoracic spine. No acute fracture. Osseous hemangiomas within the T12 and L1 vertebral bodies. Mild scattered degenerative changes. No significant neural foraminal narrowing or spinal canal stenosis. Soft tissues: Unremarkable. Lymph nodes: Calcified mediastinal and right hilar lymph nodes. Lungs: Mild emphysematous changes. IMPRESSION: No acute osseous findings of the thoracic spine.
--- NOTE | 2023-08-19 23:22 | XR_ITS ---
PROCEDURE INFORMATION: Exam: XR Chest Exam date and time: 08/20/2023 12:04 AM Age: 48 years old Clinical indication: Injury or trauma; Fall; Blunt trauma (contusions or hematomas) TECHNIQUE: Imaging protocol: Radiologic exam of the chest. Views: 1 view. COMPARISON: CR CXR1VP XR chest portable 03/09/2018 4:59 PM FINDINGS: Lungs: Unremarkable. No consolidation. Pleural spaces: Unremarkable. No pleural effusion. No pneumothorax. Heart/Mediastinum: Small calcified mediastinal and right hilar lymph nodes. No cardiomegaly. Bones/joints: Unremarkable. IMPRESSION: No acute pulmonary findings.
--- NOTE | 2023-08-19 23:22 | XR_ITS ---
PROCEDURE INFORMATION: Exam: XR Left Shoulder Exam date and time: 08/20/2023 12:04 AM Age: 48 years old Clinical indication: Injury or trauma; Fall; Blunt trauma (contusions or hematomas); Shoulder; Left TECHNIQUE: Imaging protocol: Radiologic exam of the left shoulder. Views: 2 or more views. COMPARISON: CR CXR1VP XR chest portable 03/09/2018 4:59 PM FINDINGS: Bones/joints: No acute fracture or malalignment. Chronic Hill-Sachs deformity. Soft tissues: Normal. IMPRESSION: No acute osseous findings.
--- NOTE | 2023-08-19 23:22 | CT_ITS ---
PROCEDURE INFORMATION: Exam: CT Lumbar Spine Without Contrast Exam date and time: 08/19/2023 11:45 PM Age: 48 years old Clinical indication: Injury or trauma; Fall; Blunt trauma (contusions or hematomas) TECHNIQUE: Imaging protocol: Computed tomography of the lumbar spine without contrast. Radiation optimization: All CT scans at this facility use at least one of these dose optimization techniques: automated exposure control; mA and/or kV adjustment per patient size (includes targeted exams where dose is matched to clinical indication); or iterative reconstruction. REPORTING DATA: Count of CT and Cardiac NM exams in prior 12 months: This patient has received 0 known CTs and 0 known cardiac nuclear medicine studies in the 12 months prior to the current study. COMPARISON: CT THORACIC SPINE WO CON 08/19/2023 11:43 PM FINDINGS: Bones/joints: Postsurgical changes of L2 through S1 fusion with posterior fusion hardware removal. L4-L5 and L5-S1 anterior fusion hardware remains. 9 mm anterolisthesis L5 on S1. No acute fracture. Osseous hemangiomas within the T12, L1 and L2 vertebral bodies. Varying degrees of neural foraminal narrowing most significant on the right at L3-L4. No severe spinal canal stenosis. Mild bilateral sacroiliac joint degenerative changes. Soft tissues: Unremarkable. IMPRESSION: No acute osseous findings of the lumbar spine
--- NOTE | 2023-08-19 23:22 | XR_ITS ---
PROCEDURE INFORMATION: Exam: XR Left Elbow Exam date and time: 08/20/2023 12:04 AM Age: 48 years old Clinical indication: Injury or trauma; Fall; Blunt trauma (contusions or hematomas); Elbow; left TECHNIQUE: Imaging protocol: Radiologic exam of the left elbow. Views: 1 or 2 views. COMPARISON: No relevant prior studies available. FINDINGS: Bones/joints: No acute fracture or malalignment. No joint effusion. Soft tissues: Normal. IMPRESSION: No acute osseous findings.
--- NOTE | 2023-08-19 23:22 | XR_ITS ---
PROCEDURE INFORMATION: Exam: XR Pelvis Exam date and time: 08/20/2023 12:04 AM Age: 48 years old Clinical indication: Injury or trauma; Fall; Blunt trauma (contusions or hematomas); Does not apply; Pelvic region TECHNIQUE: Imaging protocol: Radiologic exam of the pelvis. Views: 1 or 2 view. COMPARISON: CT LUMBAR SPINE WO CON 08/19/2023 11:45 PM FINDINGS: Bones/joints: No acute fracture or malalignment. Minimal bilateral hip osteoarthritis. Lower lumbar fusion hardware. Soft tissues: Unremarkable. IMPRESSION: No acute osseous findings.
[2023-08-19 23:30] VITALS: BP 131/93; PULSE 89; RESP 18; O2SAT 97
--- NOTE | 2023-08-19 23:35 | HMH.EDGENADL ---
Discharge Plan Disposition Patient Disposition: Home, Self-Care Condition: Good Prescriptions Prescriptions: New methocarbamol 500 mg tablet 500 mg PO TID Qty: 15 0RF No Action tizanidine 4 MG tablet 4 mg PO TID venlafaxine 75 MG tablet extended release 24hr 75 mg PO DAILY gabapentin 600 MG tablet 600 mg PO QID metoprolol tartrate 50 MG tablet 50 mg PO BID zolpidem 10 MG tablet 10 mg PO HS oxycodone-acetaminophen 1 EACH tablet 1 tab PO QIDP PRN (Reason: Moderate To Severe Pain) trazodone 50 MG tablet 50 mg PO BID promethazine 25 MG tablet 25 mg PO Q6H PRN (Reason: Nausea And Vomiting) Qty: 20 0RF Referrals Follow up/Referrals: Jelani Morrison MD [Primary Care Provider] - See instructions Clinical Impressions Clinical Impression: Acute pain of left shoulder, Pain of left humerus Fall Qualifiers: Qualified Code(s): W19.XXXA - Unspecified fall, initial encounter Back pain Qualifiers: Back pain location: back pain in unspecified location Chronicity: unspecified Back pain laterality: midline Qualified Code(s): M54.89 - Other dorsalgia Discharge ED Provider: Raymond Duran Adult HPI General Chief complaint: Fall Stated complaint: fall Time Seen by Provider: 08/19/23 23:20 Mode of Arrival: EMS Source of Information: Patient and EMS Limitations: No Limitations Description of Symptoms (Recalled from ER Triage Doc. by RN): Patient reports slipping while walking up stairs and falling down approximately 13 steps. Patient denies LOC, denies head injury, does not take anticoagulant medications. Patient complains of increased left shoulder and left ankle pain, patient has chronic generalized pain and states she's unsure if anything else hurts worse than her baseline at this time. History of Present Illness HPI narrative: 48-year-old female with past medical history significant for chronic back pain, presents today after having a fall. Patient states that she fell down 13 steps and injured her left upper extremity. She denies hitting her head or having loss of conscious. Denies any blood thinner use. She currently denies any chest pain, shortness of breath, abdominal pain, nausea, vomiting, fevers, chills or pain in any of her other extremities. She has chronic back pain at baseline however her pain is worsened today after her fall. She denies any other associated injuries at this time. No further complaints. Related Data Home Medications Medication Instructions Recorded Confirmed gabapentin 600 mg tablet 600 mg PO QID NEUROPATHY 03/10/18 03/10/18 metoprolol tartrate 50 mg tablet 50 mg PO BID Hypertension 03/10/18 03/10/18 oxycodone-acetaminophen 7.5 mg-325 1 tab PO QIDP PRN Moderate To 03/10/18 03/10/18 mg tablet Severe Pain tizanidine 4 mg tablet 4 mg PO TID muscle relaxer 03/10/18 03/10/18 trazodone 50 mg tablet 50 mg PO BID MOOD 03/10/18 03/10/18 venlafaxine 75 mg tablet,extended 75 mg PO DAILY MOOD 03/10/18 03/10/18 release 24 hr zolpidem 10 mg tablet 10 mg PO HS SLEEP 03/10/18 03/10/18 Previous Rx's Medication Instructions Recorded promethazine 25 mg tablet 25 mg PO Q6H PRN Nausea And 01/26/22 Vomiting #20 tabs methocarbamol 500 mg tablet 500 mg PO TID pain #15 tabs 08/20/23 Allergies Allergy/AdvReac Type Severity Reaction Status Date / Time Sulfa (Sulfonamide Allergy Unknown na Verified 05/04/20 19:46 Antibiotics) [SULFA (SULFONAMIDE ANTIBIOTICS)] sulfamethoxazole Allergy Unknown na Verified 05/04/20 19:46 [From BACTRIM] trimethoprim [From BACTRIM] Allergy Unknown na Verified 05/04/20 19:[address] [facility] Disclaimer: The information contained in this section may have been updated after the patient was seen, as this information can be updated by other users. Social History Smoking Status: Current every day smoker tobacco type: cigarettes packs per day: 1 second hand exposure: Yes alcohol intake: n
[2023-08-19 23:36] LABS: Basophils # 0.1 K/mm3 (0-0.2); Basophils % 0.8 % (0.1-2.0); Eosinophils # 0.2 K/mm3 (0.0-0.4); Eosinophils % 2.9 % (0.1-12.0); Hematocrit 41.1 % (37.0-47.0); Hemoglobin 13.7 g/dL (12.2-16.2); Lymphocytes # 3.2 K/mm3 (0.7-4.5); Lymphocytes % 45.3 % (10-50); Mean Corpuscular HGB Conc 33.2 g/dL (31.8-35.4); Mean Corpuscular Hemoglobin 29.3 pg (27.0-31.2); Mean Corpuscular Volume 88.3 fl (81-99); Mean Platelet Volume 7.7 fl (7.4-10.4); Monocytes # 0.3 K/mm3 (0.1-1.0); Monocytes % 3.9 % (1.7-9.3); Neutrophils # 3.3 K/mm3 (1.8-7.8); Neutrophils % 47.1 % (37.0-80.0); Platelet Count 292 K/mm3 (142-424); Red Blood Count 4.65 M/mm3 (4.20-5.40); Red Cell Distribution Width 13.5 % (11.5-17.5)
--- NOTE | 2023-08-19 23:38 | PC.NURSE ---
Confirmed that patient has has morphine since reporting morphine allergy. Patient states that she had had an itching reaction in the past, but has had it since and not had problems. Provider notified of information.
[2023-08-19 23:53] LABS: Chloride 106 mmol/L (98-107)
[2023-08-19 23:54] LABS: Potassium 3.9 mmoL/L (3.5-5.1); Sodium 140 mmol/L (136-145)
--- NOTE | 2023-08-19 23:54 | PC.NURSE ---
patient to CT
[2023-08-19 23:55] LABS: Activated Partial Thrombo Time 28.3 seconds (22.8-30.6); INR 0.96 (0.9-1.1); Prothrombin Time 10.4 seconds (10.1-12.5)
[2023-08-19 23:56] LABS: Alanine Aminotransferase 40 U/L (12-78); Aspartate Amino Transferase 40 U/L (14-36); Blood Urea Nitrogen 12 mg/dl (7-17); Creatinine Clearance Estimated 73 mL/min (50-200); Estimated Glomerular Filt Rate 89 ml/min (>60); GFR (African American) 108 ML/MIN (>60)
[2023-08-19 23:57] LABS: Albumin Level 4.4 g/dl (3.5-5.0); Albumin/Globulin Ratio 1.4 (1.1-1.8); Alkaline Phosphatase 124 U/L (38-126); Anion Gap 12.9 mEq/L (5-15); Bilirubin,Total 0.4 mg/dl (0.2-1.3); Calcium 8.8 mg/dl (8.4-10.2); Carbon Dioxide 25 mmol/L (22.0-30.0); Globulin 3.2 g/dL (1.3-3.2); Glucose 107 mg/dl (74-100); Total Protein,Serum 7.6 g/dl (6.3-8.2)
[2023-08-20 00:06] VITALS: BP 117/87; PULSE 95; RESP 20; O2SAT 96
[2023-08-20 00:31] VITALS: BP 120/86; PULSE 94; RESP 18; O2SAT 95
[2023-08-20 01:00] VITALS: BP 104/78; PULSE 88; RESP 20; O2SAT 96
--- NOTE | 2023-08-20 01:14 | PC.NURSE ---
PC to radiology, they will reach out to [facility] to check on reading status
--- NOTE | 2023-08-20 01:21 | PC.NURSE ---
Rounded on pt. Offered warm blanket, refused at this time. Water and call light at bedside. Updated on expected wait times for imaging results.
[2023-08-20 01:31] VITALS: BP 138/91; PULSE 89; RESP 20; O2SAT 95
[2023-08-20 01:45] VITALS: BP 133/81; PULSE 94; RESP 18; TEMP 36.6; O2SAT 96
== END 2023-08-20 01:46 | disposition home or self-care (01) ==
PROVIDERS: Emergency Provider Emergency Medicine; PCP Internal Medicine
DX: M25.512 Pain in left shoulder (principal); M79.621 Pain in right upper arm; W10.9XXA Fall (on) (from) unspecified stairs and steps, initial encounter; R00.0 Tachycardia, unspecified; F17.210 Nicotine dependence, cigarettes, uncomplicated; M25.572 Pain in left ankle and joints of left foot; M54.9 Dorsalgia, unspecified
CPT/HCPCS: 71045; 72128; 72131; 72170; 73030; 73060; 73070; 80053; 85025; 85610; 85730; 96374; 96375; 99285

== ENCOUNTER 2023-09-13 17:54 | Emergency (ER) | payer OTHER, SELFPAY ==
[2023-09-13] VITALS (8 sets, daily range): BP systolic 135–175; BP diastolic 97–123; PULSE 70–92; RESP 14–22; TEMP 36.9–37; O2SAT 89–98; BMI 31.1
--- NOTE | 2023-09-13 17:52 | ECG_ITS ---
APPROVED REPORT Exam: Resting ECG HR:92 bpm ECG Measurements Heart Rate 92 AXES SD 150 P 51 QRSd 85 QRS 1 QT 350 T 42 QTc 399 Conclusion SINUS RHYTHM NORMAL ECG UNCONFIRMED REPORT Electronically signed by : Singh Henderson MD 09/14/2023 14:48:03
--- NOTE | 2023-09-13 17:59 | XR_ITS ---
PROCEDURE INFORMATION: Exam: XR Chest Exam date and time: 09/13/2023 6:27 PM Age: 48 years old Clinical indication: Pain; Left-sided; Patient HX: Smoker, SOA; Additional info: Chest pain TECHNIQUE: Imaging protocol: Radiologic exam of the chest. Views: 1 view. COMPARISON: CR XR CHEST PORTABLE 08/20/2023 12:04 AM FINDINGS: Lungs: Unremarkable. No consolidation. Pleural spaces: Unremarkable. No pleural effusion. No pneumothorax. Heart/Mediastinum: No cardiomegaly. Bones/joints: Unremarkable. IMPRESSION: No acute pulmonary findings.
[2023-09-13 18:14] LABS: Coronavirus 19, PCR Not Detected (NotDetected); Influenza A, PCR Not Detected (NotDetected); Influenza B, PCR Not Detected (NotDetected)
--- NOTE | 2023-09-13 18:27 | HMH.EDGENADL ---
Discharge Plan Disposition Patient Disposition: Home, Self-Care Prescriptions Prescriptions: New albuterol sulfate 90 mcg/actuation HFA aerosol inhaler 2 inh inhalation Q4H PRN (Reason: shortness of breath or wheezing) Qty: 6.7 0RF No Action tizanidine 4 MG tablet 4 mg PO TID venlafaxine 75 MG tablet extended release 24hr 75 mg PO DAILY gabapentin 600 MG tablet 600 mg PO QID metoprolol tartrate 50 MG tablet 50 mg PO BID zolpidem 10 MG tablet 10 mg PO HS oxycodone-acetaminophen 1 EACH tablet 1 tab PO QIDP PRN (Reason: Moderate To Severe Pain) trazodone 50 MG tablet 50 mg PO BID promethazine 25 MG tablet 25 mg PO Q6H PRN (Reason: Nausea And Vomiting) Qty: 20 0RF methocarbamol 500 mg tablet 500 mg PO TID Qty: 15 0RF Referrals Follow up/Referrals: Jelani Morrison MD [Primary Care Provider] - See instructions Activity Restrictions/Add. Instructions Additional Instructions/Restrictions: At this time it was felt you are safe to be discharged home. If new or worsening symptoms please do not hesitate to return the emergency department. If symptoms persist please follow-up with your family doctor as you are able. Clinical Impressions Clinical Impression: Bronchitis, Chest pain Discharge ED Provider: Mono Weathers General Adult HPI General Chief complaint: Chest Pain Stated complaint: chest pain Time Seen by Provider: 09/13/23 18:00 Mode of Arrival: Ambulatory Source of Information: Patient Limitations: No Limitations Description of Symptoms (Recalled from ER Triage Doc. by RN): Patient reports she was recently diagnosed with bronchitis and has been on amoxicillin and an inshaler. Patient reports chest pain today that comes and goes and get worse when she coughs. Patient also reports some nausea. History of Present Illness HPI narrative: Patient is a 48-year-old female with past medical history of recently diagnosed bronchitis who presents emergency department for evaluation of chest pain. Patient states that she has been home on amoxicillin and an inhaler. Her inhaler makes her breathe faster worsening her symptoms. She has associated left thoracic and substernal chest pain that radiates up into her shoulder. Due to persistent symptoms she presents here for continued evaluation. Related Data Home Medications Medication Instructions Recorded Confirmed gabapentin 600 mg tablet 600 mg PO QID NEUROPATHY 03/10/18 03/10/18 metoprolol tartrate 50 mg tablet 50 mg PO BID Hypertension 03/10/18 03/10/18 oxycodone-acetaminophen 7.5 mg-325 1 tab PO QIDP PRN Moderate To 03/10/18 03/10/18 mg tablet Severe Pain tizanidine 4 mg tablet 4 mg PO TID muscle relaxer 03/10/18 03/10/18 trazodone 50 mg tablet 50 mg PO BID MOOD 03/10/18 03/10/18 venlafaxine 75 mg tablet,extended 75 mg PO DAILY MOOD 03/10/18 03/10/18 release 24 hr zolpidem 10 mg tablet 10 mg PO HS SLEEP 03/10/18 03/10/18 Previous Rx's Medication Instructions Recorded promethazine 25 mg tablet 25 mg PO Q6H PRN Nausea And 01/26/22 Vomiting #20 tabs methocarbamol 500 mg tablet 500 mg PO TID pain #15 tabs 08/20/23 albuterol sulfate 90 mcg/actuation 2 inh inhalation Q4H PRN shortness 09/13/23 aerosol inhaler of breath or wheezing #6.7 grams Allergies Allergy/AdvReac Type Severity Reaction Status Date / Time Sulfa (Sulfonamide Allergy Unknown na Verified 05/04/20 19:46 Antibiotics) [SULFA (SULFONAMIDE ANTIBIOTICS)] sulfamethoxazole Allergy Unknown na Verified 05/04/20 19:46 [From BACTRIM] trimethoprim [From BACTRIM] Allergy Unknown na Verified 05/04/20 19:46 [facility] Disclaimer: The information contained in this section may have been updated after the patient was seen, as this information can be updated by other users. Social History Smoking Status: Current every day smoker tobacco type: cigarettes packs per day: 1 second hand exposure: Yes alcohol intake: windy
[2023-09-13 18:28] LABS: Anion Gap 12.2 mEq/L (5-15); Blood Urea Nitrogen 13 mg/dl (7-17); Calcium 9.3 mg/dl (8.4-10.2); Carbon Dioxide 27 mmol/L (22.0-30.0); Chloride 102 mmol/L (98-107); Creatinine Clearance Estimated 138 mL/min (50-200); Estimated Glomerular Filt Rate 106 ml/min (>60); GFR (African American) 129 ML/MIN (>60); Glucose 76 mg/dl (74-100); Potassium 4.2 mmoL/L (3.5-5.1); Sodium 137 mmol/L (136-145)
[2023-09-13 18:40] LABS: Troponin I < 0.01 ng/ml (0.00-0.034)
[2023-09-13 18:51] LABS: D-Dimer 0.94 ug/mL (0.0-0.5)
[2023-09-13 19:17] LABS: Alanine Aminotransferase 41 U/L (12-78); Albumin Level 4.7 g/dl (3.5-5.0); Alkaline Phosphatase 127 U/L (38-126); Aspartate Amino Transferase 66 U/L (14-36); Bilirubin,Direct 0.3 mg/dl (0.0-0.4); Bilirubin,Total 0.3 mg/dl (0.2-1.3); Total Protein,Serum 7.8 g/dl (6.3-8.2)
[2023-09-13 19:38] LABS: Basophils # 0.1 K/mm3 (0-0.2); Basophils % 0.7 % (0.1-2.0); Eosinophils # 0.3 K/mm3 (0.0-0.4); Eosinophils % 3.5 % (0.1-12.0); Hematocrit 37.4 % (37.0-47.0); Hemoglobin 13.3 g/dL (12.2-16.2); Lymphocytes # 3.4 K/mm3 (0.7-4.5); Lymphocytes % 46.5 % (10-50); Mean Corpuscular HGB Conc 35.6 g/dL (31.8-35.4); Mean Corpuscular Hemoglobin 31.8 pg (27.0-31.2); Mean Corpuscular Volume 89.4 fl (81-99); Mean Platelet Volume 7.9 fl (7.4-10.4); Monocytes # 0.4 K/mm3 (0.1-1.0); Monocytes % 5.4 % (1.7-9.3); Neutrophils # 3.2 K/mm3 (1.8-7.8); Neutrophils % 43.9 % (37.0-80.0); Platelet Count 287 K/mm3 (142-424); Red Blood Count 4.19 M/mm3 (4.20-5.40); Red Cell Distribution Width 13.5 % (11.5-17.5); White Blood Count 7.2 K/mm3 (4.8-10.8)
--- NOTE | 2023-09-13 20:30 | CT_ITS ---
PROCEDURE INFORMATION: Exam: CTA Chest With Contrast Exam date and time: 09/13/2023 8:45 PM Age: 48 years old Clinical indication: Abnormal findings; Abnormal diagnostic tests; Elevated d-dimer; Shortness of breath; Additional info: Sob/cp/elevated dimer TECHNIQUE: Imaging protocol: Computed tomographic angiography of the chest with contrast. Exam focused on the arteries. 3D rendering (Not supervised by radiologist): MIP and/or 3D reconstructed images were created by the technologist. Radiation optimization: All CT scans at this facility use at least one of these dose optimization techniques: automated exposure control; mA and/or kV adjustment per patient size (includes targeted exams where dose is matched to clinical indication); or iterative reconstruction. Contrast material: ISO 370; Contrast volume: 70 ml; Contrast route: INTRAVENOUS (IV); REPORTING DATA: Count of CT and Cardiac NM exams in prior 12 months: This patient has received 2 known CTs and 0 known cardiac nuclear medicine studies in the 12 months prior to the current study. COMPARISON: CR XR CHEST PORTABLE 09/13/2023 6:27 PM FINDINGS: Pulmonary arteries: Normal. No pulmonary emboli. Aorta: Unremarkable. No aortic aneurysm. No aortic dissection. Lungs: Minimal atelectasis. No consolidation. No masses. Pleural spaces: Unremarkable. No pneumothorax. No pleural effusion. Heart: Mild cardiomegaly. No pericardial effusion. Lymph nodes: Small mediastinal and right hilar calcified lymph nodes. Diaphragm: Small hiatal hernia. Liver: Hepatomegaly. Spleen: Splenic calcification. Splenomegaly. Kidneys and ureters: 1 cm right kidney superior pole simple cyst. Bones/joints: Unremarkable. No acute fracture. Soft tissues: Unremarkable. IMPRESSION: No pulmonary artery embolism. COMMENTS: Consistent with the [employer]'s Incidental Findings Committee white paper (J Am Gail Radiol 2018): Any incidental renal lesion less than 1 cm or classified as too small to characterize, or any incidental cystic renal lesion characterized as simple-appearing, is likely benign. No follow-up imaging is recommended for these lesions per consensus recommendations based on imaging criteria.
--- NOTE | 2023-09-13 20:43 | PC.NURSE ---
rounded on patient no new complaints.
[2023-09-13 21:30] LABS: Troponin I < 0.01 ng/ml (0.00-0.034)
== END 2023-09-13 21:53 | disposition home or self-care (01) ==
PROVIDERS: Emergency Provider Emergency Medicine; PCP Internal Medicine
DX: R07.2 Precordial pain (principal); J20.9 Acute bronchitis, unspecified; M54.6 Pain in thoracic spine; F17.210 Nicotine dependence, cigarettes, uncomplicated
CPT/HCPCS: 71045; 71275; 80048; 80076; 84484; 85025; 85378; 87636; 93005; 96374; 96375; 99285; J0131; J2405; Q9967

== ENCOUNTER 2024-03-05 22:21 | Emergency (ER) | payer OTHER, SELFPAY ==
--- NOTE | 2024-03-05 22:26 | ECG_ITS ---
APPROVED REPORT Exam: Resting ECG HR:103 bpm ECG Measurements Heart Rate 103 AXES NE 148 P 59 QRSd 92 QRS 24 QT 281 T 71 QTc 341 Conclusion SINUS TACHYCARDIA POSSIBLE LEFT ATRIAL ENLARGEMENT [-0.1mV P-WAVE IN V1/V2] SEPTAL MYOCARDIAL INFARCTION , OF INDETERMINATE AGE [40+ ms Q WAVE IN V1/V2] ABNORMAL ECG UNCONFIRMED REPORT Electronically signed by : ADEOLA ELISE, 03/08/2024 06:53:24
[2024-03-05 22:30] VITALS: BP 171/114; PULSE 103; RESP 17; O2SAT 97
[2024-03-05 22:35] VITALS: BP 198/113; PULSE 106; RESP 17; TEMP 36.7; O2SAT 99; BMI 32.9
--- NOTE | 2024-03-05 22:49 | XR_ITS ---
PROCEDURE INFORMATION: Exam: XR Chest Exam date and time: 03/06/2024 12:05 AM Age: 49 years old Clinical indication: Pain; Chest pressure; Additional info: Cp TECHNIQUE: Imaging protocol: Radiologic exam of the chest. Views: 1 view. COMPARISON: CT ANGIO CHEST PE PROTOCOL 09/13/2023 8:45 PM FINDINGS: Lungs: Clear, symmetrically inflated lungs. Pleural spaces: No pleural effusion. No pneumothorax. Heart/Mediastinum: Cardiac silhouette is normal in size for technique. Bones/joints: Age appropriate. IMPRESSION: No acute cardiopulmonary abnormality.
[2024-03-05 22:52] LABS: Basophils # 0.1 K/mm3 (0-0.2); Basophils % 1.2 % (0.1-2.0); Eosinophils # 0.2 K/mm3 (0.0-0.4); Eosinophils % 2.5 % (0.1-12.0); Hematocrit 42.5 % (37.0-47.0); Hemoglobin 14.3 g/dL (12.2-16.2); Lymphocytes # 3.6 K/mm3 (0.7-4.5); Lymphocytes % 37.5 % (10-50); Mean Corpuscular HGB Conc 33.5 g/dL (31.8-35.4); Mean Corpuscular Hemoglobin 30.4 pg (27.0-31.2); Mean Corpuscular Volume 90.7 fl (81-99); Mean Platelet Volume 7.8 fl (7.4-10.4); Monocytes # 0.3 K/mm3 (0.1-1.0); Monocytes % 3.6 % (1.7-9.3); Neutrophils # 5.3 K/mm3 (1.8-7.8); Neutrophils % 55.1 % (37.0-80.0); Platelet Count 319 K/mm3 (142-424); Red Blood Count 4.69 M/mm3 (4.20-5.40); Red Cell Distribution Width 13.2 % (11.5-17.5); White Blood Count 9.6 K/mm3 (4.8-10.8)
[2024-03-05 22:53] LABS: Chloride 106 mmol/L (98-107); Potassium 3.5 mmoL/L (3.5-5.1); Sodium 141 mmol/L (136-145)
[2024-03-05] MEDS: ASPIRIN 81MG CHEWABLE TABLET 324 MG PO (22:54)
[2024-03-05] MEDS: MORPHINE 4MG/ML SYRINGE 4 MG IV (22:56)
[2024-03-05] MEDS: NITROGLYCERIN 0.4MG SL TABLET 0.400000000000000022 MG SL (22:58)
[2024-03-05 22:59] VITALS: BP 149/105; PULSE 100; RESP 17; O2SAT 95
[2024-03-05 23:00] VITALS: PULSE 111; O2SAT 94
[2024-03-05 23:06] LABS: NT Pro Brain Natriuretic Pep. 57.7 pg/mL (0-125)
--- NOTE | 2024-03-05 23:07 | CT_ITS ---
PROCEDURE INFORMATION: Exam: CTA Chest With Contrast Exam date and time: 03/06/2024 12:07 AM Age: 49 years old Clinical indication: Pain; Chest pressure; Additional info: Cp to back TECHNIQUE: Imaging protocol: Computed tomographic angiography of the chest with contrast. Exam focused on the arteries. 3D rendering (Not supervised by radiologist): MIP and/or 3D reconstructed images were created by the technologist. Radiation optimization: All CT scans at this facility use at least one of these dose optimization techniques: automated exposure control; mA and/or kV adjustment per patient size (includes targeted exams where dose is matched to clinical indication); or iterative reconstruction. Contrast material: ISOVUE; Contrast volume: 100 ml; Contrast route: INTRAVENOUS (IV); COMPARISON: CT ANGIO CHEST PE PROTOCOL 09/13/2023 8:45 PM FINDINGS: Pulmonary arteries: Normal. No pulmonary emboli. Aorta: No evidence of acute aortic dissection, penetrating ulcer, or intramural hematoma. There is minimal plaque at the aortic arch. Aortic branch vessels enhance normally without evidence of stenosis. Lungs: Calcified pulmonary granulomas, otherwise clear lung parenchyma. Pleural spaces: Unremarkable. No pneumothorax. No pleural effusion. Heart: Unremarkable. No cardiomegaly. No pericardial effusion. Lymph nodes: Calcified hilar lymph nodes. Diaphragm: Small sliding hiatal hernia. Gallbladder and bile ducts: Postprandial gallbladder is contracted. Adrenal glands: Normal adrenals. Kidneys and ureters: Visualized portions of the kidneys are normal. Bones/joints: There is mild upper thoracic degenerative disc disease. No acute fracture or destructive bony lesion. Patent spinal canal. Soft tissues: Unremarkable. IMPRESSION: 1. No findings of acute aortic dissection. No evidence of acute pulmonary embolism. 2. 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 3. Small sliding hiatal hernia.
--- NOTE | 2024-03-05 23:10 | ED_ITS ---
Discharge Plan Disposition Patient Disposition: Home, Self-Care Prescriptions Prescriptions: No Action tizanidine 4 MG tablet 4 mg PO TID venlafaxine 75 MG tablet extended release 24hr 75 mg PO DAILY gabapentin 600 MG tablet 600 mg PO QID metoprolol tartrate 50 MG tablet 50 mg PO BID zolpidem 10 MG tablet 10 mg PO HS oxycodone-acetaminophen 1 EACH tablet 1 tab PO QIDP PRN (Reason: Moderate To Severe Pain) trazodone 50 MG tablet 50 mg PO BID promethazine 25 MG tablet 25 mg PO Q6H PRN (Reason: Nausea And Vomiting) Qty: 20 0RF methocarbamol 500 mg tablet 500 mg PO TID Qty: 15 0RF albuterol sulfate 90 mcg/actuation HFA aerosol inhaler 2 inh inhalation Q4H PRN (Reason: shortness of breath or wheezing) Qty: 6.7 0RF Clinical Impressions Clinical Impression: Chest pain Discharge ED Provider: Liban Pedro HPI <Mono Weathers MD - Last Filed: 03/05/24 23:36> General Chief Complaint: Chest Pain Stated Complaint: Chest pain Time Seen by Provider: 03/05/24 22:49 Mode of Arrival: Family Vehicle Source of Information: Patient Limitations: No Limitations Description of Symptoms (Recalled from ER Triage Doc. by RN): 49 yo female presents with cc of cp since last pm. states she noticed she was having difficulty getting getting a good breath ; history of anxiety, htn. States she has had chest pain before but never pressure . Patient is reporting pain radiation up into left jaw. Nausea without vomiting. History of Present Illness HPI narrative: Patient is a 49-year-old female with past medical history of hypertension, chronic back pain status post surgical intervention who presents emergency department for evaluation of chest pain. Onset was acute, over the last 24 hours substernal radiating into her left jaw and through to her shoulder blades. Due to persistent symptoms she presents here for continued evaluation. No other acute complaints at this time. Related Data Home Medications Medication Instructions Recorded Confirmed gabapentin 600 mg tablet 600 mg PO QID NEUROPATHY 03/10/18 03/10/18 metoprolol tartrate 50 mg tablet 50 mg PO BID Hypertension 03/10/18 03/10/18 oxycodone-acetaminophen 7.5 mg-325 1 tab PO QIDP PRN Moderate To 03/10/18 03/10/18 mg tablet Severe Pain tizanidine 4 mg tablet 4 mg PO TID muscle relaxer 03/10/18 03/10/18 trazodone 50 mg tablet 50 mg PO BID MOOD 03/10/18 03/10/18 venlafaxine 75 mg tablet,extended 75 mg PO DAILY MOOD 03/10/18 03/10/18 release 24 hr zolpidem 10 mg tablet 10 mg PO HS SLEEP 03/10/18 03/10/18 Previous Rx's Medication Instructions Recorded promethazine 25 mg tablet 25 mg PO Q6H PRN Nausea And 01/26/22 Vomiting #20 tabs methocarbamol 500 mg tablet 500 mg PO TID pain #15 tabs 08/20/23 albuterol sulfate 90 mcg/actuation 2 inh inhalation Q4H PRN shortness 09/13/23 aerosol inhaler of breath or wheezing #6.7 grams Allergies Allergy/AdvReac Type Severity Reaction Status Date / Time Sulfa (Sulfonamide Allergy Unknown na Verified 05/04/20 19:46 Antibiotics) [SULFA (SULFONAMIDE ANTIBIOTICS)] sulfamethoxazole Allergy Unknown na Verified 05/04/20 19:46 [From BACTRIM] trimethoprim [From BACTRIM] Allergy Unknown na Verified 05/04/20 19:46 PFS <Mono Weathers MD - Last Filed: 03/05/24 23:36> [facility] Disclaimer: The information contained in this section may have been updated after the patient was seen, as this information can be updated by other users. Social History Smoking Status: Unknown if ever smoked second hand exposure: Yes alcohol intake: never substance use type: former substance user current occupational status: disabled Travel in the last 8 weeks: None household members: other housing: house current occupation: disabled current occupational exposures/hazards: No caffeine: Yes <Mono Weathers MD - Last Filed: 03/05/24 23:36> ROS Obtained: Yes Systems reviewed as appropriate & no additional complaints except as documented Physical Exam <Mono Weathers MD - Last Filed: 03/05/24 23:36> General General appearance: alert and in no apparent distress Head Head exam: atraumatic and normocephalic Eye Eye exam: Present PERRL ENT ENT exam: Present mucous membranes moist Neck Neck exam: Present normal inspection Chest Chest inspection: Present normal inspection and symmetric chest wall rise Respiratory Respiratory exam: Present normal lung sounds bilaterally; Absent respiratory distress Cardiovascular Cardiovascular exam: Present normal rhythm and tachycardia Abdominal Exam Abdominal exam: Present soft; Absent tenderness Extremities Exam Extremities exam: Present normal inspection Neurological Exam Neurological exam: Present alert Psychiatric Psychiatric exam: Present normal affect Skin Skin exam: Present warm and dry HEART Score <Mono Weathers MD - Last Filed: 03/05/24 23:36> HEART Score HEART Score assessment performed?: Yes History (anamnesis): Highly suspicious ECG: Non-specific disturbance Age: 45-65 years Risk factors: 1-2 risk factors Troponin: </= normal limit HEART Score: 5 <Liban Pedro MD - Last Filed: 03/06/24 02:13> HEART Score HEART Score: 5 Critical Care <Mono Weathers MD - Last Filed: 03/05/24 23:36> Critical Care Time Critical Care Time: No Medical Decision Making <Mono Weathers MD - Last Filed: 03/05/24 23:36> David Inquiry Pt receiving controlled substance: No Vital Signs Vital Signs: 03/05/24 22:30 03/05/24 22:35 03/05/24 22:59 Temperature 98.1 F Temperature Source Oral Pulse Rate 103 H 100 H Pulse Rate [Right Brachial] 106 H Respiratory Rate 17 17 17 Blood Pressure 171/114 H 149/105 H Blood Pressure [Right Arm] 198/113 H Blood Pressure Mean 138 119 Blood Pressure Mean [Right Arm] 141 Blood Pressure Source Blood Pressure Source [Right Arm] Automatic Cuff Blood Pressure Position Blood Pressure Position [Right Arm] Sitting 02 Sat by Pulse Oximetry 97 99 95 Oxygen Delivery Method Room Air Room Air Room Air 03/05/24 23:00 03/05/24 23:15 03/05/24 23:30 Temperature Temperature Source Pulse Rate 111 H 87 80 Pulse Rate [Right Brachial] Respiratory Rate Blood Pressure 127/89 Blood Pressure [Right Arm] Blood Pressure Mean 101 Blood Pressure Mean [Right Arm] Blood Pressure Source Blood Pressure Source [Right Arm] Blood Pressure Position Blood Pressure Position [Right Arm] 02 Sat by Pulse Oximetry 94 L 91 L 90 L Oxygen Delivery Method Room Air 03/06/24 00:00 03/06/24 00:30 03/06/24 01:00 Temperature Temperature Source Pulse Rate 78 70 68 Pulse Rate [Right Brachial] Respiratory Rate Blood Pressure 113/74 112/81 119/87 Blood Pressure [Right Arm] Blood Pressure Mean 87 86 93 Blood Pressure Mean [Right Arm] Blood Pressure Source Blood Pressure Source [Right Arm] Blood Pressure Position Blood Pressure Position [Right Arm] 02 Sat by Pulse Oximetry 94 L 94 L 94 L Oxygen Delivery Method Room Air Room Air Room Air 03/06/24 01:30 03/06/24 02:04 Temperature 98.1 F Temperature Source Oral Pulse Rate 73 82 Pulse Rate [Right Brachial] Respiratory Rate 19 Blood Pressure 122/90 122/88 Blood Pressure [Right Arm] Blood Pressure Mean 100 Blood Pressure Mean [Right Arm] Blood Pressure Source Automatic Cuff Blood Pressure Source [Right Arm] Blood Pressure Position Sitting Blood Pressure Position [Right Arm] 02 Sat by Pulse Oximetry 94 L Oxygen Delivery Method Room Air Room Air Lab Data Labs: Lab Results 03/05/24 22:32: WBC 9.6, RBC 4.69, Hgb 14.3, Hct 42.5, MCV 90.7, MCH 30.4, MCHC 33.5, RDW 13.2, Plt Count 319, MPV 7.8, Neut % (Auto) 55.1, Lymph % (Auto) 37.5, Franklin % (Auto) 3.6, Eos % (Auto) 2.5, Baso % (Auto) 1.2, Neut # (Auto) 5.3, Lymph # (Auto) 3.6, Franklin # (Auto) 0.3, Eos # (Auto) 0.2, Baso # (Auto) 0.1, Sodium 141, Potassium 3.5, Chloride 106, Carbon Dioxide 26, Anion Gap 12.5, BUN 10, Creatinine 0.70, Estimated Creat Clear 124, Estimated GFR 89, Est GFR ( Amer) 107, Glucose 149 H, Calcium 9.9, Total Bilirubin 0.4, AST 42 H, ALT 43, A lkaline Phosphatase 138 H, Troponin I < 0.01, NT-Pro-B Natriuret Pep 57.7, Total Protein 8.0, Albumin 4.7, Globulin 3.3 H, Albumin/Globulin Ratio 1.4, TSH 0.93, Thyroxine (T4) 6.0 03/06/24 01:29: Troponin I < 0.01 03/05/24 22:32 03/05/24 22:32 Response Orders (Tests/Meds): ED MEDICATIONS Discontinued Medications Generic Name Dose Route Start Last Admin Trade Name Edwin PRN Reason Stop Dose Admin Aspirin 324 mg 03/05/24 22:49 03/05/24 22:54 Aspirin 81mg Chewable Tablet PO 03/05/24 22:50 324 mg ONCE ONE Administration Lactated Ringer's 1,000 mls @ 999 mls/hr 03/05/24 23:07 03/05/24 23:36 Lactated Ringer's 1000 Ml Bag IV 03/06/24 00:07 999 mls/hr .Q1H1M ONE Administration Iopamidol 100 ml 03/06/24 00:13 03/06/24 00:14 Iopamidol-370 (76%);100ml Bottle IV 03/06/24 00:14 100 ml ONCE ONE Administration Morphine Sulfate 4 mg 03/05/24 22:49 03/05/24 22:56 Morphine 4mg/Ml Syringe IV 03/05/24 22:50 4 mg ONCE ONE Administration Nitroglycerin 0.4 mg 03/05/24 22:49 03/05/24 22:58 Nitroglycerin 0.4mg Sl Tablet SL 03/05/24 22:50 0.4 mg ONCE ONE Administration Sodium Chloride 50 ml 03/06/24 00:13 03/06/24 00:14 0.9 % Sodium Chloride 50 Ml Vial IV 03/06/24 00:14 50 ml ONCE ONE Administration Sodium Chloride 10 ml 03/06/24 00:13 03/06/24 00:14 Sodium Chloride 0.9% 10ml Syr (Rad Only) IV 03/06/24 00:14 10 ml ONCE ONE Administration ORDERS Category Date Time Status CT angio chest - dissection Stat Cat Scan 03/05/24 23:07 Completed CXR --portable [XR chest portable] Stat Exams 03/05/24 22:49 Completed Complete Blood Count Auto Diff Stat Lab 03/05/24 22:32 Completed Comprehensive Metabolic Panel Stat Lab 03/05/24 22:32 Completed NT Pro Brain Natriuretic Pep. Stat Lab 03/05/24 22:32 Completed T4 (Thyroxine) Stat Lab 03/05/24 22:32 Completed Thyroid Stimulating Hormone Stat Lab 03/05/24 22:32 Completed Troponin I Q3H Lab 03/06/24 01:29 Completed Troponin I Q3H Lab 03/06/24 05:00 Ordered Troponin I Stat Lab 03/05/24 22:32 Completed ECG Data Tracing #1: ECG Narrative: Independently interpreted by me, rate is 103, rhythm is regular, axis is normal, no ST elevation in anatomical contiguous leads, sinus tachycardia. MDM Narrative Medical Decision Narrative: In summary patient is a 49-year-old female past medical history described above presents emergency department for evaluation of chest pain. Patient is hemodynamically stable nontoxic-appearing upon arrival, tachycardic. Differential diagnosis includes aortic dissection, pulmonary embolism, ACS, among others. Workup will be conducted with hematologic labs, chest x-ray, EKG, serial troponins, CTA angiogram dissection protocol. Initial inventions include aspirin, nitroglycerin, morphine. Initial troponin undetectably low. Workup largely pending at time of transfer of care to the oncoming physician, Dr. Pedro. <Liban Pedro MD - Last Filed: 03/06/24 02:13> Vital Signs Vital Signs: 03/05/24 22:30 03/05/24 22:35 03/05/24 22:59 Temperature 98.1 F Temperature Source Oral Pulse Rate 103 H 100 H Pulse Rate [Right Brachial] 106 H Respiratory Rate 17 17 17 Blood Pressure 171/114 H 149/105 H Blood Pressure [Right Arm] 198/113 H Blood Pressure Mean 138 119 Blood Pressure Mean [Right Arm] 141 Blood Pressure Source Blood Pressure Source [Right Arm] Automatic Cuff Blood Pressure Position Blood Pressure Position [Right Arm] Sitting 02 Sat by Pulse Oximetry 97 99 95 Oxygen Delivery Method Room Air Room Air Room Air 03/05/24 23:00 03/05/24 23:15 03/05/24 23:30 Temperature Temperature Source Pulse Rate 111 H 87 80 Pulse Rate [Right Brachial] Respiratory Rate Blood Pressure 127/89 Blood Pressure [Right Arm] Blood Pressure Mean 101 Blood Pressure Mean [Right Arm] Blood Pressure Source Blood Pressure Source [Right Arm] Blood Pressure Position Blood Pressure Position [Right Arm] 02 Sat by Pulse Oximetry 94 L 91 L 90 L Oxygen Delivery Method Room Air 03/06/24 00:00 03/06/24 00:30 03/06/24 01:00 Temperature Temperature Source Pulse Rate 78 70 68 Pulse Rate [Right Brachial] Respiratory Rate Blood Pressure 113/74 112/81 119/87 Blood Pressure [Right Arm] Blood Pressure Mean 87 86 93 Blood Pressure Mean [Right Arm] Blood Pressure Source Blood Pressure Source [Right Arm] Blood Pressure Position Blood Pressure Position [Right Arm] 02 Sat by Pulse Oximetry 94 L 94 L 94 L Oxygen Delivery Method Room Air Room Air Room Air 03/06/24 01:30 03/06/24 02:04 Temperature 98.1 F Temperature Source Oral Pulse Rate 73 82 Pulse Rate [Right Brachial] Respiratory Rate 19 Blood Pressure 122/90 122/88 Blood Pressure [Right Arm] Blood Pressure Mean 100 Blood Pressure Mean [Right Arm] Blood Pressure Source Automatic Cuff Blood Pressure Source [Right Arm] Blood Pressure Position Sitting Blood Pressure Position [Right Arm] 02 Sat by Pulse Oximetry 94 L Oxygen Delivery Method Room Air Room Air Lab Data Labs: Lab Results 03/05/24 22:32: WBC 9.6, RBC 4.69, Hgb 14.3, Hct 42.5, MCV 90.7, MCH 30.4, MCHC 33.5, RDW 13.2, Plt Count 319, MPV 7.8, Neut % (Auto) 55.1, Lymph % (Auto) 37.5, Franklin % (Auto) 3.6, Eos % (Auto) 2.5, Baso % (Auto) 1.2, Neut # (Auto) 5.3, Lymph # (Auto) 3.6, Franklin # (Auto) 0.3, Eos # (Auto) 0.2, Baso # (Auto) 0.1, Sodium 141, Potassium 3.5, Chloride 106, Carbon Dioxide 26, Anion Gap 12.5, BUN 10, Creatinine 0.70, Estimated Creat Clear 124, Estimated GFR 89, Est GFR ( Amer) 107, Glucose 149 H, Calcium 9.9, Total Bilirubin 0.4, AST 42 H, ALT 43, A lkaline Phosphatase 138 H, Troponin I < 0.01, NT-Pro-B Natriuret Pep 57.7, Total Protein 8.0, Albumin 4.7, Globulin 3.3 H, Albumin/Globulin Ratio 1.4, TSH 0.93, Thyroxine (T4) 6.0 03/06/24 01:29: Troponin I < 0.01 Response Orders (Tests/Meds): ED MEDICATIONS Discontinued Medications Generic Name Dose Route Start Last Admin Trade Name Freq PRN Reason Stop Dose Admin Aspirin 324 mg 03/05/24 22:49 03/05/24 22:54 Aspirin 81mg Chewable Tablet PO 03/05/24 22:50 324 mg ONCE ONE Administration Lactated Ringer's 1,000 mls @ 999 mls/hr 03/05/24 23:07 03/05/24 23:36 Lactated Ringer's 1000 Ml Bag IV 03/06/24 00:07 999 mls/hr .Q1H1M ONE Administration Iopamidol 100 ml 03/06/24 00:13 03/06/24 00:14 Iopamidol-370 (76%);100ml Bottle IV 03/06/24 00:14 100 ml ONCE ONE Administration Morphine Sulfate 4 mg 03/05/24 22:49 03/05/24 22:56 Morphine 4mg/Ml Syringe IV 03/05/24 22:50 4 mg ONCE ONE Administration Nitroglycerin 0.4 mg 03/05/24 22:49 03/05/24 22:58 Nitroglycerin 0.4mg Sl Tablet SL 03/05/24 22:50 0.4 mg ONCE ONE Administration Sodium Chloride 50 ml 03/06/24 00:13 03/06/24 00:14 0.9 % Sodium Chloride 50 Ml Vial IV 03/06/24 00:14 50 ml ONCE ONE Administration Sodium Chloride 10 ml 03/06/24 00:13 03/06/24 00:14 Sodium Chloride 0.9% 10ml Syr (Rad Only) IV 03/06/24 00:14 10 ml ONCE ONE Administration ORDERS Category Date Time Status CT angio chest - dissection Stat Cat Scan 03/05/24 23:07 Completed CXR --portable [XR chest portable] Stat Exams 03/05/24 22:49 Completed Complete Blood Count Auto Diff Stat Lab 03/05/24 22:32 Completed Comprehensive Metabolic Panel Stat Lab 03/05/24 22:32 Completed NT Pro Brain Natriuretic Pep. Stat Lab 03/05/24 22:32 Completed T4 (Thyroxine) Stat Lab 03/05/24 22:32 Completed Thyroid Stimulating Hormone Stat Lab 03/05/24 22:32 Completed Troponin I Q3H Lab 03/06/24 01:29 Completed Troponin I Q3H Lab 03/06/24 05:00 Ordered Troponin I Stat Lab 03/05/24 22:32 Completed MDM Narrative Medical Decision Narrative: In summary patient is a 49-year-old female past medical history described above presents emergency department for evaluation of chest pain. Patient is hemodynamically stable nontoxic-appearing upon arrival, tachycardic. Differential diagnosis includes aortic dissection, pulmonary embolism, ACS, among others. Workup will be conducted with hematologic labs, chest x-ray, EKG, serial troponins, CTA angiogram dissection protocol. Initial inventions include aspirin, nitroglycerin, morphine. Initial troponin undetectably low. Workup largely pending at time of transfer of care to the oncoming physician, Dr. Pedro. Mayela BOWMAN: I assumed care of the patient at the time of handoff from the prior provider. On reassessment patient remains hemodynamically stable. Reports symptomatic resolution. Laboratory results significant for negative repeat troponin. CT angiogram shows no evidence of aortic dissection or PE. Does show small hiatal hernia. I had an interactive discussion with patient regarding these endings and her presentation. She was discharged in stable condition. Return precautions given.
[2024-03-05 23:11] LABS: Troponin I < 0.01 ng/ml (0.00-0.034)
[2024-03-05 23:15] VITALS: PULSE 87; O2SAT 91
[2024-03-05 23:30] VITALS: BP 127/89; PULSE 80; O2SAT 90
[2024-03-05 23:34] LABS: Alanine Aminotransferase 43 U/L (12-78); Albumin Level 4.7 g/dl (3.5-5.0); Albumin/Globulin Ratio 1.4 (1.1-1.8); Alkaline Phosphatase 138 U/L (38-126); Anion Gap 12.5 mEq/L (5-15); Aspartate Amino Transferase 42 U/L (14-36); Bilirubin,Total 0.4 mg/dl (0.2-1.3); Blood Urea Nitrogen 10 mg/dl (7-17); Calcium 9.9 mg/dl (8.4-10.2); Carbon Dioxide 26 mmol/L (22.0-30.0); Creatinine Clearance Estimated 124 mL/min (50-200); Estimated Glomerular Filt Rate 89 ml/min (>60); GFR (African American) 107 ML/MIN (>60); Globulin 3.3 g/dL (1.3-3.2); Glucose 149 mg/dl (74-100)
[2024-03-05] MEDS: LACTATED RINGERS 1000ML 1,000 ML 999 ML IV (23:36)
[2024-03-06] VITALS: BP 113/74; PULSE 78; O2SAT 94
[2024-03-06 00:04] LABS: Thyroid Stimulating Hormone 0.93 uIU/mL (0.465-4.68)
[2024-03-06] MEDS: 0.9 % SODIUM CHLORIDE 50 ML VIAL IV (00:14)
[2024-03-06] MEDS: SODIUM CHLORIDE 0.9% 10ML SYR (RAD ONLY) 10 ML IV (00:14)
[2024-03-06] MEDS: IOPAMIDOL-370 (76%);100ML BOTTLE 100 ML IV (00:14)
[2024-03-06 00:30] VITALS: BP 112/81; PULSE 70; O2SAT 94
[2024-03-06 01:00] VITALS: BP 119/87; PULSE 68; O2SAT 94
[2024-03-06 01:30] VITALS: BP 122/90; PULSE 73; O2SAT 94
[2024-03-06 01:56] LABS: Troponin I < 0.01 ng/ml (0.00-0.034)
[2024-03-06 02:04] VITALS: BP 122/88; PULSE 82; RESP 19; TEMP 36.7; O2SAT 98
== END 2024-03-06 02:10 | disposition home or self-care (01) ==
PROVIDERS: Emergency Medicine; Emergency Provider Emergency Medicine; PCP Internal Medicine
DX: R07.9 Chest pain, unspecified (principal); R00.0 Tachycardia, unspecified; R68.84 Jaw pain
CPT/HCPCS: 71045; 71275; 80053; 83880; 84436; 84443; 84484; 85025; 93005; 96361; 96374; 99285; Q9967

== ENCOUNTER 2024-03-08 16:44 | Outpatient (CLI) | payer OTHER, SELFPAY ==
[2024-03-08 17:33] LABS: Basophils # 0.1 K/mm3 (0-0.2); Basophils % 0.8 % (0.1-2.0); Eosinophils # 0.2 K/mm3 (0.0-0.4); Eosinophils % 2.1 % (0.1-12.0); Hematocrit 44.7 % (37.0-47.0); Lymphocytes # 3.3 K/mm3 (0.7-4.5); Lymphocytes % 31.3 % (10-50); Mean Corpuscular HGB Conc 33.5 g/dL (31.8-35.4); Mean Corpuscular Hemoglobin 30.6 pg (27.0-31.2); Mean Corpuscular Volume 91.2 fl (81-99); Mean Platelet Volume 8.5 fl (7.4-10.4); Monocytes # 0.6 K/mm3 (0.1-1.0); Monocytes % 5.7 % (1.7-9.3); Neutrophils # 6.3 K/mm3 (1.8-7.8); Neutrophils % 60.1 % (37.0-80.0); Platelet Count 418 K/mm3 (142-424); Red Cell Distribution Width 13.6 % (11.5-17.5); White Blood Count 10.4 K/mm3 (4.8-10.8)
[2024-03-08 17:53] LABS: C-Reactive Protein 7.5 mg/L (0-4)
[2024-03-08 18:10] LABS: Erythrocyte Sedimentation Rate 26 mm/hr (0-20)
== END 2024-03-08 23:59 | disposition home or self-care (01) ==
LOC: LAB.DROPOF 16:45
PROVIDERS: PCP Internal Medicine; Visit Provider Internal Medicine
DX: I10 Essential (primary) hypertension (principal); M79.2 Neuralgia and neuritis, unspecified; F17.209 Nicotine dependence, unspecified, with unspecified nicotine-induced disorders; E66.8 Other obesity; L02.221 Furuncle of abdominal wall
CPT/HCPCS: 85025; 85651; 86140; 87070; 87205

== ENCOUNTER 2024-05-03 16:04 | Outpatient (CLI) | payer OTHER, SELFPAY ==
[2024-05-03 16:08] LABS: Microscopic, Urine URINE MICROSCOPIC (MICROSCOPIC)
--- NOTE | 2024-05-03 16:29 | XR_ITS ---
PROCEDURE INFORMATION: Exam: XR Chest Exam date and time: 05/03/2024 4:35 PM Age: 49 years old Clinical indication: Cough; Additional info: Cough, fever, night sweats TECHNIQUE: Imaging protocol: Radiologic exam of the chest. Views: 2 views. COMPARISON: CT ANGIO CHEST 03/06/2024 12:07 AM FINDINGS: Lungs: There is mild elevation of the right hemidiaphragm. The lungs appear clear. No focal areas of consolidation. A few calcified right hilar lymph nodes indicate prior granulomatous disease. Pleural spaces: No pleural effusions. Negative for pneumothorax. Heart/Mediastinum: Cardiac silhouette and pulmonary vasculature are within range of normal. The descending thoracic aorta is mildly unfolded. Bones/joints: There is no evidence of acute fracture. Postoperative and degenerative changes involving the thoracolumbar spine are incompletely visualized and more optimally described on the associated lumbar spine radiograph from the same date and time. Please reference that report for additional information. IMPRESSION: Negative for an acute cardiopulmonary abnormality.
--- NOTE | 2024-05-03 16:29 | XR_ITS ---
PROCEDURE INFORMATION: Exam: XR Lumbosacral Spine Exam date and time: 05/03/2024 4:35 PM Age: 49 years old Clinical indication: Low back pain; Prior surgery; Surgery date: 6+ months; Surgery type: Fusion; Hardware removal; Additional info: History of osteomyelitis, status post multiple alfredo TECHNIQUE: Imaging protocol: Radiologic exam of the lumbosacral spine. Views: 4 or 5 views. COMPARISON: CT LUMBAR SPINE WO CON 08/19/2023 11:45 PM FINDINGS: Bones/joints: Postoperative changes are identified spanning the L2 through S1 levels with postoperative fusion and laminectomy changes. Postsurgical hardware is present at the L2-L3 level as well as the L5-S1 levels, as before. There is very slight anterior spondylolisthesis L3 on L4, unchanged. Mild anterolisthesis of L4 on L5 and L5 on S1 appears stable. Advanced degenerative changes span the L2 through S1 levels with prominent degenerative changes at the the L4 through S1 levels, as before. Fusion is present spanning L1 through L3. No evidence for hardware fracture. There are mild degenerative changes of the sacroiliac joints. Soft tissues: There is mildly excessive colonic stool content. Spleen: The spleen demonstrates punctate calcifications, consistent with remote granulomatous organism exposure. IMPRESSION: Overall, stable postoperative changes given differences in imaging technique when compared with prior CT of the lumbar spine dated 08/11/2023. Mild constipation.
[2024-05-03 17:08] LABS: Basophils # 0.1 K/mm3 (0-0.2); Basophils % 0.9 % (0.1-2.0); Eosinophils # 0.3 K/mm3 (0.0-0.4); Eosinophils % 3.7 % (0.1-12.0); Hematocrit 43.9 % (37.0-47.0); Hemoglobin 14.6 g/dL (12.2-16.2); Lymphocytes # 2.7 K/mm3 (0.7-4.5); Lymphocytes % 33.6 % (10-50); Mean Corpuscular HGB Conc 33.3 g/dL (31.8-35.4); Mean Corpuscular Hemoglobin 30.2 pg (27.0-31.2); Mean Corpuscular Volume 90.7 fl (81-99); Mean Platelet Volume 7.7 fl (7.4-10.4); Monocytes # 0.4 K/mm3 (0.1-1.0); Monocytes % 5.6 % (1.7-9.3); Neutrophils # 4.5 K/mm3 (1.8-7.8); Neutrophils % 56.2 % (37.0-80.0); Platelet Count 328 K/mm3 (142-424); Red Blood Count 4.84 M/mm3 (4.20-5.40); Red Cell Distribution Width 13.6 % (11.5-17.5); White Blood Count 7.9 K/mm3 (4.8-10.8)
[2024-05-03 17:46] LABS: Appearance,Urine CLEAR (Clear); Bilirubin,Urine Negative (Negative); Blood, Urine 1+ (Negative); Color,Urine YELLOW (Yellow); Glucose,Urine (UA) Negative (Negative); Ketones,Urine Negative (Negative); Leukocyte Esterase,Urine Negative (Negative); Nitrate,Urine Negative (Negative); Protein,Urine Negative (Negative); Specific Gravity, Urine >= 1.030 (1.005-1.030); Urobilinogen,Urine 0.2 EU/dl (0.2)
[2024-05-03 18:04] LABS: Bacteria,Urine Trace /lpf; RBC,Urine Occasional #/hpf (0-3)
[2024-05-03 18:26] LABS: Erythrocyte Sedimentation Rate 25 mm/hr (0-20)
[2024-05-03 19:38] LABS: Alanine Aminotransferase 27 U/L (12-78); Albumin Level 4.9 g/dl (3.5-5.0); Albumin/Globulin Ratio 1.7 (1.1-1.8); Alkaline Phosphatase 149 U/L (38-126); Anion Gap 13.5 mEq/L (5-15); Aspartate Amino Transferase 30 U/L (14-36); Bilirubin,Total 0.4 mg/dl (0.2-1.3); Blood Urea Nitrogen 16 mg/dl (7-17); Carbon Dioxide 26 mmol/L (22.0-30.0); Chloride 106 mmol/L (98-107); Estimated Glomerular Filt Rate 89 ml/min (>60); GFR (African American) 107 ML/MIN (>60); Globulin 2.9 g/dL (1.3-3.2); Glucose 91 mg/dl (74-100); Potassium 4.5 mmoL/L (3.5-5.1); Sodium 141 mmol/L (136-145); Total Protein,Serum 7.8 g/dl (6.3-8.2)
[2024-05-03 19:44] LABS: C-Reactive Protein 13.9 mg/L (0-4)
== END 2024-05-03 23:59 | disposition home or self-care (01) ==
LOC: LAB 16:05
PROVIDERS: PCP Internal Medicine; Visit Provider Internal Medicine
DX: R61 Generalized hyperhidrosis (principal); R50.9 Fever, unspecified; R05.9 Cough, unspecified; M54.89 Other dorsalgia; M86.9 Osteomyelitis, unspecified
CPT/HCPCS: 36415; 71046; 72110; 80053; 81001; 85025; 85651; 86140; 87040

== ENCOUNTER 2024-08-02 09:28 | Outpatient (CLI) | payer OTHER, SELFPAY | END 2024-08-02 23:59 | disposition home or self-care (01) | LOC: RAD 09:29 | PROVIDERS: PCP Internal Medicine; Visit Provider Internal Medicine | DX: M54.9 Dorsalgia, unspecified (principal) ==

== ENCOUNTER 2024-09-04 13:16 | Outpatient (CLI) | payer OTHER, SELFPAY ==
--- NOTE | 2024-09-04 13:17 | CT_ITS ---
FINAL REPORT CLINICAL HISTORY: Worsening low back pain and left sciatica COMPARISON: 08/20/2023 FINDINGS: CT LUMBAR SPINE WITHOUT AND WITH CONTRAST TECHNIQUE: Pre and postcontrast CT axial images were obtained of the lumbar spine by computed tomography. Coronal and sagittal reconstruction process performed. This study was performed with techniques to keep radiation doses as low as reasonably achievable (ALARA). Individualized dose reduction techniques using automated exposure control or adjustment of mA and/or kV according to the patient's size were employed. FINDINGS: There is no acute fracture. On the sagittal reconstruction imaging, there is anterior and interbody fusion at L4-5 and L5-S1. There is ankylosis at L3-4. There is interbody fusion graft at L2-3. There are extensive posterior element hypertrophic changes in the lower lumbar spine. There is mixed sclerosis and lucency within the posterior fusion graft material in the lower lumbar spine. This appears similar to the prior exam. T12-L1: No significant central canal stenosis or neuroforaminal narrowing. L1-2: Mild diffuse disc bulge and mild bilateral neuroforaminal narrowing. L2-3: Mild endplate hypertrophy. The neuroforamen are adequately patent. L3-4: No significant central canal stenosis or neuroforaminal narrowing. L4-5: No significant central canal stenosis or neuroforaminal narrowing. L5-S1: Mild endplate hypertrophy and posterior osteophytes. Mild to moderate bilateral neuroforaminal narrowing. IMPRESSION: No acute bony abnormality. Postoperative and degenerative changes similar to the previous exam. Pre and post infusion MRI of the lumbar spine may be of value. Reviewed, Interpreted and Dictated by Frandy Brady MD Transcribed by Diya Bey Authenticated and [facility]
[2024-09-04] MEDS: SODIUM CHLORIDE 0.9% 10ML SYR (RAD ONLY) 10 ML IV (13:39)
[2024-09-04] MEDS: IOPAMIDOL-370 (76%);100ML BOTTLE 75 ML IV (13:39)
== END 2024-09-04 23:59 | disposition home or self-care (01) ==
LOC: RAD 13:17
PROVIDERS: PCP Internal Medicine; Visit Provider Internal Medicine
DX: M54.42 Lumbago with sciatica, left side (principal); G89.29 Other chronic pain; R61 Generalized hyperhidrosis; Z87.39 Personal history of other diseases of the musculoskeletal system and connective tissue
CPT/HCPCS: 72133; Q9967

== ENCOUNTER 2024-12-26 14:07 | Outpatient (CLI) | payer OTHER, SELFPAY ==
--- NOTE | 2024-12-26 14:10 | XR_ITS ---
FINAL REPORT CLINICAL HISTORY: constipation FINDINGS: ABDOMEN COMPLETE INCL DECUB/ERECT There is a nonspecific, nonobstructive bowel gas pattern. No abnormal dilatation is identified. There is a large amount of retained stool throughout the colon. There is no abnormal calcification. No free air is identified. Fusion hardware is seen at L5-S1 on the left. IMPRESSION: Large stool burden. Reviewed, Interpreted and Dictated by Frandy Brady MD Transcribed by Sophia Aburto Authenticated and [facility]
[2024-12-26 14:40] LABS: Basophils % 0.2 % (0.1-2.0); Eosinophils # 0.1 K/mm3 (0.0-0.4); Eosinophils % 1.2 % (0.1-12.0); Hematocrit 40.7 % (37.0-47.0); Hemoglobin 13.9 g/dL (12.2-16.2); Lymphocytes # 2.8 K/mm3 (0.7-4.5); Lymphocytes % 25.6 % (10-50); Mean Corpuscular HGB Conc 34.2 g/dL (31.8-35.4); Mean Corpuscular Volume 87.7 fl (81-99); Mean Platelet Volume 9.5 fl (7.4-10.4); Monocytes # 0.7 K/mm3 (0.1-1.0); Monocytes % 6.4 % (1.7-9.3); Neutrophils # 7.2 K/mm3 (1.8-7.8); Neutrophils % 66.3 % (37.0-80.0); Platelet Count 317 K/mm3 (142-424); Red Blood Count 4.64 M/mm3 (4.20-5.40); Red Cell Distribution Width 12.4 % (11.5-17.5); White Blood Count 10.9 K/mm3 (4.8-10.8)
== END 2024-12-26 23:59 | disposition home or self-care (01) ==
LOC: LAB 14:08
PROVIDERS: PCP Internal Medicine; Visit Provider Internal Medicine
DX: K59.00 Constipation, unspecified (principal); R10.31 Right lower quadrant pain
CPT/HCPCS: 36415; 74019; 85025

== ENCOUNTER 2025-01-22 15:45 | Outpatient (CLI) | payer OTHER, SELFPAY | END 2025-01-22 23:59 | disposition home or self-care (01) | LOC: LAB.DROPOF 01-24 12:44 | PROVIDERS: PCP Internal Medicine; Visit Provider Internal Medicine | DX: Z11.52 Encounter for screening for COVID-19 (principal) | CPT/HCPCS: 87635 ==

== ENCOUNTER 2025-01-29 15:30 | Outpatient (CLI) | payer OTHER, SELFPAY ==
--- NOTE | 2025-01-29 15:35 | XR_ITS ---
FINAL REPORT TECHNIQUE: Chest PA & Lateral CLINICAL HISTORY: Fever, cough, sputum COMPARISON: 05/03/2024 FINDINGS: 2 views of the chest were performed. The heart size is normal. The mediastinum is within normal limits. There is no acute cardiopulmonary process. There are no pleural effusions. There is no pneumothorax. The bony thorax appears intact. IMPRESSION: No acute cardiopulmonary process. Reviewed, Interpreted and Dictated by Frandy Brady MD Transcribed by Ayanna Ball Authenticated and [facility]
== END 2025-01-29 23:59 | disposition home or self-care (01) ==
LOC: RAD 15:31
PROVIDERS: PCP Internal Medicine; Visit Provider Internal Medicine
DX: R05.8 Other specified cough (principal); R50.9 Fever, unspecified
CPT/HCPCS: 71046

== ENCOUNTER 2025-02-13 14:34 | Outpatient (CLI) | payer OTHER, SELFPAY ==
--- NOTE | 2025-02-13 14:37 | XR_ITS ---
FINAL REPORT CLINICAL HISTORY: Right shoulder pain for 1 week, tendency to dislocate FINDINGS: 3 views of the right shoulder were obtained. There is no fracture or dislocation. The joint space is preserved. Soft tissues are unremarkable. IMPRESSION: No acute osseous abnormality of the right shoulder. Reviewed, Interpreted and Dictated by Tashia Simmons MD Transcribed by Diya Bey Authenticated and [facility]
== END 2025-02-13 23:59 | disposition home or self-care (01) ==
LOC: RAD 14:35
PROVIDERS: PCP Internal Medicine; Visit Provider Internal Medicine
DX: M25.511 Pain in right shoulder (principal); M24.411 Recurrent dislocation, right shoulder
CPT/HCPCS: 73030

== ENCOUNTER 2025-02-26 16:03 | Outpatient (CLI) | payer OTHER, SELFPAY ==
--- NOTE | 2025-02-26 16:00 | MR_ITS ---
PROCEDURE INFORMATION: Exam: MR Right Upper Extremity Joint Without Contrast; Shoulder Exam date and time: 02/26/2025 4:31 PM Age: 49 years old Clinical indication: Pain; Shoulder; Right; Additional info: Right shoulder pain, frequent partial dislocations TECHNIQUE: Imaging protocol: Magnetic resonance imaging of the right upper extremity without contrast. Exam focused on the shoulder. COMPARISON: CR XR SHOULDER RT MIN 2V 02/13/2025 2:39 PM FINDINGS: Bones/joints: Cortical irregularity of the posterior humeral head consistent with Hill-Sachs fractures (age indeterminate, a component of which may be acute on chronic given marrow edema). Iuhxh-rb-vcjjdozw joint effusion with mild synovitis. Moderate cartilage thinning and fraying of the humeral head and glenoid. Glenoid labrum: Chronic degeneration and diffuse volume loss of the glenoid labrum, most prominently superiorly ( including the biceps labral anchor) as well as anterior and posterior upper quadrants. Note made of apparent chronic periosteal stripping and retraction in the anterior superior quadrant (image 10 series 4). A component of these findings likely related to history of repeated dislocations. Supraspinatus tendon: Moderate to severe tendinosis of the supraspinatus tendon, with a combination of high-grade partial-thickness articular surface tears of the anterior fibers, retracted up to the level of the mid humeral head. Partial-thickness interstitial tears as well as full-thickness of mid and posterior fibers from the footplate, retracted up to 11 mm medially. Associated trace subacromial/subdeltoid fluid. Infraspinatus tendon: Tcur-bu-xelukgho tendinosis of the infraspinatus tendon, without distinct tear. Subscapularis tendon: Moderate tendinosis of the subscapularis tendon, without distinct tear. Teres minor tendon: Unremarkable. No evidence of tear. Tendon of biceps brachii: The extra-articular and intra-articular biceps tendon not well seen. Possibly severely tendinotic and attenuated versus post tenodesis. Glenohumeral ligaments: Unremarkable. Soft tissues: Mild fatty atrophy of the supraspinatus, infraspinatus, subscapularis, and teres minor muscles. IMPRESSION: 1. Moderate to severe tendinosis of the supraspinatus tendon, with a combination of high-grade partial-thickness and full-thickness tears with mild retraction and associated subacromial/subdeltoid fluid. 2. Drtj-wl-exxwqeuj tendinosis of the infraspinatus and subscapularis tendons, without distinct tear. 3. Chronic degeneration and diffuse volume loss of the glenoid labrum, most prominently superiorly, including the biceps labral anchor, as well as anterior and posterior upper quadrants. Apparent chronic periosteal stripping and retraction in the anterior superior quadrant. Probably related to history of repeated dislocations. 4. Small posterior humeral head Hill-Sachs fracture, age indeterminate, possibly a component of subacute-chronic. 5. The extra-articular and intra-articular biceps tendon not well seen. Possibly severely tendinotic and attenuated versus post tenodesis. Recommend correlation. 6. Bixst-bl-ypqbbzej joint effusion with mild synovitis.
== END 2025-02-26 23:59 | disposition home or self-care (01) ==
LOC: RAD 16:04
PROVIDERS: PCP Internal Medicine; Visit Provider Internal Medicine
DX: M25.511 Pain in right shoulder (principal); M24.411 Recurrent dislocation, right shoulder
CPT/HCPCS: 73221

== ENCOUNTER 2025-03-27 14:52 | Outpatient (CLI) | payer OTHER, SELFPAY ==
--- NOTE | 2025-03-27 14:56 | XR_ITS ---
FINAL REPORT CLINICAL HISTORY: Left medial ankle redness, heat, and pain COMPARISON: None FINDINGS: AP, oblique, and lateral views of the left ankle were obtained. There is no fracture or dislocation. The ankle mortise is intact. Diffuse nonspecific soft tissue swelling is present. IMPRESSION: Diffuse soft tissue swelling is present, with no acute osseous abnormality of the left ankle. Reviewed, Interpreted and Dictated by Tashia Simmons MD Transcribed by Ayanna Ball Authenticated and [facility]
[2025-03-27 17:27] LABS: Basophils % 0.4 % (0.1-2.0); Eosinophils # 0.2 Kmm3 (0.0-0.4); Eosinophils % 2.5 % (0.1-12.0); Hematocrit 37.7 % (37.0-47.0); Hemoglobin 12.8 g/dL (12.2-16.2); Immature Granulocytes # 0.03 10^3uL; Immature Granulocytes % 0.4 %; Lymphocytes # 1.5 K/mm3 (0.7-4.5); Lymphocytes % 22.4 % (10-50); Mean Corpuscular Hemoglobin 29.6 pg (27.0-31.2); Mean Corpuscular Volume 87.3 fl (81-99); Mean Platelet Volume 9.6 fl (7.4-10.4); Monocytes # 0.5 K/mm3 (0.1-1.0); Neutrophils # 4.4 K/mm3 (1.8-7.8); Neutrophils % 66.3 % (37.0-80.0); Nucleated Red Blood Cells # 0 10^3/uL; Nucleated Red Blood Cells % 0 %; Platelet Count 304 K/mm3 (142-424); Red Blood Count 4.32 M/mm3 (4.20-5.40); Red Cell Distribution Width 13.2 % (11.5-17.5); Red Cell Distribution Width-SD 41.6 fL; White Blood Count 6.7 K/mm3 (4.8-10.8)
[2025-03-27 18:31] LABS: Blood Urea Nitrogen 16 mg/dl (7-17); Calcium 9.4 mg/dl (8.4-10.2); Carbon Dioxide 31 mmol/L (22.0-30.0); Chloride 108 mmol/L (98-107); Estimated Glomerular Filt Rate 105 ml/min (>60); GFR (African American) 128 ML/MIN (>60); Glucose 82 mg/dl (74-100); Sodium 139 mmol/L (136-145); Uric Acid 4.7 mg/dl (2.5-6.2)
[2025-03-27 19:36] LABS: Erythrocyte Sedimentation Rate 40 mm/hr (0-30)
== END 2025-03-27 23:59 | disposition home or self-care (01) ==
LOC: RAD 14:53
PROVIDERS: PCP Internal Medicine; Visit Provider Internal Medicine
DX: M13.172 Monoarthritis, not elsewhere classified, left ankle and foot (principal); I10 Essential (primary) hypertension
CPT/HCPCS: 73610; 80048; 84550; 85025; 85651

== ENCOUNTER 2025-03-30 07:35 | Outpatient (CLI) | payer OTHER, SELFPAY ==
--- NOTE | 2025-03-30 07:30 | US_ITS ---
FINAL REPORT CLINICAL HISTORY: Cellulitis-rule out abscess/ankle effusion FINDINGS: Sonographic images to the left medial ankle was obtained. Soft tissue edema is identified. No loculated fluid collection or mass is seen. IMPRESSION: Nonspecific soft tissue edema, could represent cellulitis in the appropriate clinical setting. Reviewed, Interpreted and Dictated by Tashia Simmons MD Transcribed by Sophia Aburto Authenticated and [facility]
== END 2025-03-30 23:59 | disposition home or self-care (01) ==
LOC: RAD 07:35
PROVIDERS: PCP Internal Medicine; Visit Provider Internal Medicine
DX: R22.42 Localized swelling, mass and lump, left lower limb (principal)
CPT/HCPCS: 76882

== ENCOUNTER 2025-04-03 12:23 | Outpatient (CLI) | payer OTHER, SELFPAY ==
--- NOTE | 2025-04-03 12:30 | CA_ITS ---
FINAL REPORT TECHNIQUE: Ultrasound images of the deep venous system were obtained from the left groin to the calf veins. CLINICAL HISTORY: cellulitis on Left ankle x 2 weeks, red hot angry ankle FINDINGS: The deep venous system is normally compressible. Normal flow is identified. IMPRESSION: No evidence of left lower extremity DVT. Reviewed, Interpreted and Dictated by Frandy Brady MD Transcribed by Sophia Aburto Authenticated and . [facility]
== END 2025-04-03 23:59 | disposition home or self-care (01) ==
LOC: RT 12:24
PROVIDERS: PCP Internal Medicine; Visit Provider Internal Medicine
DX: L03.116 Cellulitis of left lower limb (principal); L02.416 Cutaneous abscess of left lower limb; M79.662 Pain in left lower leg
CPT/HCPCS: 93971

== ENCOUNTER 2025-04-04 15:14 | Outpatient (CLI) | payer OTHER, SELFPAY ==
--- NOTE | 2025-04-04 15:15 | MR_ITS ---
FINAL REPORT CLINICAL HISTORY: Cellulitis versus intra-articular arthritis ankle, redness swelling medial malleolus COMPARISON: None FINDINGS: Multiplanar MR imaging of the left ankle was performed without contrast. The ankle mortise is intact. There is extensive marrow edema throughout the medial malleolus and anterior distal tibial metaphysis. No osteochondral lesion is identified. There is a moderate joint effusion. Irregularity of the anterior talofibular ligament may be due to partial tear. The supporting tendons about the ankle are intact. The Achilles tendon is intact. The plantar fascia is intact. A moderate joint effusion is seen. The musculature is intact. There is no evidence of soft tissue mass or cyst. IMPRESSION: Marrow edema anterior distal tibia and medial malleolus with overlying soft tissue inflammation and joint effusion. Septic arthritis with associated distal tibial osteomyelitis is not excluded. Correlate clinically. Possible partial tear anterior talofibular ligament. Reviewed, Interpreted and Dictated by Frandy Brady MD Transcribed by Susan Meza Authenticated and [facility]
== END 2025-04-04 23:59 | disposition home or self-care (01) ==
LOC: RAD 15:15
PROVIDERS: PCP Internal Medicine; Visit Provider Internal Medicine
DX: M25.472 Effusion, left ankle (principal); M79.89 Other specified soft tissue disorders; D75.89 Other specified diseases of blood and blood-forming organs; L03.116 Cellulitis of left lower limb; L02.416 Cutaneous abscess of left lower limb; M13.172 Monoarthritis, not elsewhere classified, left ankle and foot
CPT/HCPCS: 73721

== ENCOUNTER 2025-04-10 11:38 | Outpatient (CLI) | payer OTHER, SELFPAY ==
[2025-04-10 12:14] LABS: Basophils # 0.1 K/mm3 (0-0.2); Basophils % 0.4 % (0.1-2.0); Eosinophils # 0.3 Kmm3 (0.0-0.4); Eosinophils % 2.5 % (0.1-12.0); Hemoglobin 14.1 g/dL (12.2-16.2); Immature Granulocytes # 0.03 10^3uL; Immature Granulocytes % 0.3 %; Lymphocytes # 3.5 K/mm3 (0.7-4.5); Mean Corpuscular HGB Conc 33.6 g/dL (31.8-35.4); Mean Corpuscular Hemoglobin 29.6 pg (27.0-31.2); Mean Corpuscular Volume 88.1 fl (81-99); Mean Platelet Volume 9.3 fl (7.4-10.4); Monocytes # 0.7 K/mm3 (0.1-1.0); Monocytes % 5.9 % (1.7-9.3); Neutrophils # 6.8 K/mm3 (1.8-7.8); Neutrophils % 59.9 % (37.0-80.0); Nucleated Red Blood Cells # 0 10^3/uL; Nucleated Red Blood Cells % 0 %; Platelet Count 347 K/mm3 (142-424); Red Blood Count 4.77 M/mm3 (4.20-5.40); Red Cell Distribution Width 13.6 % (11.5-17.5); Red Cell Distribution Width-SD 43.8 fL; White Blood Count 11.4 K/mm3 (4.8-10.8)
[2025-04-10 13:13] LABS: C-Reactive Protein 6.1 mg/L (0-4)
[2025-04-10 13:37] LABS: Erythrocyte Sedimentation Rate 67 mm/hr (0-30)
== END 2025-04-10 23:59 | disposition home or self-care (01) ==
LOC: LAB 11:39
PROVIDERS: PCP Internal Medicine; Visit Provider Orthopaedic Surgery
DX: M86.9 Osteomyelitis, unspecified (principal)
CPT/HCPCS: 36415; 85025; 85651; 86140

== ENCOUNTER 2025-04-20 10:48 | Outpatient (CLI) | payer OTHER, SELFPAY ==
--- NOTE | 2025-04-20 10:30 | NM_ITS ---
FINAL REPORT CLINICAL HISTORY: osteomyleitis COMPARISON: MRI 04/04/2025 FINDINGS: EXISTING RELEVANT IMAGING STUDIES: TECHNIQUE: The patient was injected with 23.2 mCi of technetium 99-MDP. 3 hour delayed images were obtained. FINDINGS: Soft tissue and renal uptake is normal. Radiotracer accumulation is noted in the medial left ankle which does correspond to the abnormality seen on recent MRI. This could represent osteomyelitis. Exam was not performed as a three-phase bone scan. There is also abnormal radiotracer uptake within the hjpvn-cnbexdg-sckm-left shoulders and within oqauw-qftqxyf-brcl-left knees. This is nonspecific and could be related to degenerative disease. Other areas of osteomyelitis can not be excluded. No other abnormal tracer activity is identified to suggest occult fracture or metastatic disease. IMPRESSION: Abnormal radiotracer uptake at the left ankle corresponding to findings on MRI could represent osteomyelitis in the appropriate setting. Additional areas of radiotracer uptake are nonspecific and without history could be degenerative or could be infectious/inflammatory. Neoplasm is not entirely excluded. Reviewed, Interpreted and Dictated by Tashia Simmons MD Transcribed by Susan Meza Authenticated and [facility]
[2025-04-20] MEDS: ISOTOPE MDP (BONE);1 DOSE VIAL IV (14:19)
[2025-04-20] MEDS: SODIUM CHLORIDE 0.9% 10ML SYR (RAD ONLY) 10 ML IV (14:19)
== END 2025-04-20 23:59 | disposition home or self-care (01) ==
LOC: RAD 10:49
PROVIDERS: PCP Internal Medicine; Visit Provider Orthopaedic Surgery
DX: R93.6 Abnormal findings on diagnostic imaging of limbs (principal); M86.9 Osteomyelitis, unspecified
CPT/HCPCS: 78306; A9503

== ENCOUNTER 2025-05-04 11:00 | Outpatient (CLI) | payer OTHER, SELFPAY ==
--- OUTSIDE RECORDS SUMMARY | 2021-08-05 15:00 | XMS_ITS | Encounter Summary ---
Author [place] [address] Care Team Providers Care Track Coach Name Role Phone Mahesh Arnada MD Primary Care Provider Unavailable Reason for Visit * Auth/Cert/Inpt Specialty Diagnoses / Procedures Referred By Chiki t Referred To Contact Diagnoses Pain in left knee Referral ID Status Reason Start Date Expiration Date Visits Re quested Visits Authorized [id number] 1 1 Encounter Details Date Type Department Care Team (Latest Contact Info) Description 08/05/2021 3:00 PM EDT Hospital Encounter [facility] [address] [facility] [place] [address] Rosette Hernandez PA [address] [place] [address] Left without seen Social History Tobacco Use Types Packs/Day Years Used Date Smoking Tobacco: Every Day Cigarettes 1 31.4 Started: 12/20/1993 Smokeless Tobacco: Never Alcohol Use [...] LPN Stay Tobacco Free Lifestyle No Shahrzad Robert LPN documented as of this encounter Visit Diagnoses Not on filedocumented in this encounter Additional Health Concerns Assessment Noted Time PHQ-9 Depression Total Score: 12/15/19 10:03 AM EST PHQ-2 Depression Total Score: 12/15/19 10:03 AM EST documented as of this encounter Care Teams Track Coach Relationship Specialty Start Date End Date Mahesh Aranda MD PCP - General Internal Medicine 11/08/20 09/29/22 documented as of this encounter
--- OUTSIDE RECORDS SUMMARY | 2025-05-04 11:03 | XMS_ITS | Encounter Summary ---
Author Organization Healthcare Address [address] [place] [address] Care Team Providers Care Roll Grinder Name Role Phone Mahesh Aranda MD Primary Care Provider [phone] Encounter Details Date Type Department Care Team ([facility] st Contact Info) Description 05/01/2025 [facility] [address] [place] [address] Jose Marshall, DO [address] [place] [address] [place] [address] Social History Tobacco Use Types Packs/Day Years Used Date Smoking Tobacco: Every Day Cigarettes 0.5 15 Smokeless Tobacco: Never Alcohol Use Standard Drinks/Week Comments Not Currently 0 (1 standard drink = 0.6 oz pur e alcohol) Comments No Sex and Gender Information Value Date Recorded Sex Assigned at Not on file Legal Sex Female 8:24 PM EDT Gender Identity Not on file Sexual Orientation Not on file documented as of this encounter Plan of Treatment Not on file documented as of this encounter Visit Diagnoses Not on filedocumented in this encounter Additional Health Concerns Assessment Noted Time A fall risk assessment has been complete d for the patient 09/25/2021 11:32 AM EDT documented as of this encounter Care Teams Roll Grinder Relationship Specialty Start Date End Date Mahesh Aranda MD PCP - General 11/19/21 documented as of this encounter
--- OUTSIDE RECORDS SUMMARY | 2025-05-04 11:03 | XMS_ITS | Clinical Summary ---
Author Organization [facility] Address [address] [place] [id number] Phone Care Team Providers Care Drama Teacher Name Role Phone Justin ESPINO, Christina Bang Unavailable Conditions or Problems Problem Name Problem Code Onset Date Status Entry Date Provider Comment Standard Description Annotate Neutropenia, drug-induced 66218181 (SNOMED CT) 11/29 Active 11/29 Barbara Chaudhari RN Drug-induced neutropenia Osteomyelitis of vertebra, lumbar region M46.26 (ICD-10-CM ) Active Kimmy Jacques Osteomyelitis of vertebra, lumbar region Lumbar region, infected discitis, 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.36 (ICD-10-CM ) Active Kimmy Jacques Infection of intervertebral disc (pyogenic), lumbar region Pseudomonas infection 42792959 (SNOMED CT) Active Kimmy Hanna Bacterial infection caused by Pseudomonas Benign Essential Hypertension 8251171 (SNOMED CT) Active Kimmy Jacques Benign essential hypertension IVDA (indiscriminate drug), 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 Kimmy Hanna Other psychoactive substance dependence, in remission Nicotine dependence, cigarettes F17.210 (ICD-10-CM ) Active Lorne Page Nicotine dependence, cigarettes, uncomplicated Medications Medication Instructions Start Date Stop Date Generic Name NDC Provider LOPRESSOR 50 MG TABS Take one (1) tablet by mouth twice a day METOPROLOL TARTRATE [id number] Alyx Suresh ZOFRAN 4 MG ORAL TABLET Take one by mouth 3 times a day when necessary severe nausea and vomiting ONDANSETRON HCL 31163028620 Singh Polk MD EFFEXOR XR 37.5 MG [id number] Take one by mouth daily VENLAFAXINE HCL 84672178810 Singh Polk MD LEVAQUIN 750 MG ORAL TABLET by mouth daily LEVOFLOXACIN 10426431525 Singh Polk MD DIFLUCAN 150 MG TABS Take one pill daily. FLUCONAZOLE [id number] Shell K LEVAQUIN 750 MG ORAL TABLET by mouth daily 02/20 LEVOFLOXACIN 28041349877 Singh Polk MD DIFLUCAN 150 MG TABS Take one pill daily. 05/30 FLUCONAZOLE [id number] Singh Polk MD CEFEPIME HCL 2 GM INJECTION SOLUTION RECONSTITUTED 2[facility]27 CEFEPIME HCL [id number] Barbara Chaudhari RN DIFLUCAN 150 MG TABS Take one pill daily. 12/19 FLUCONAZOLE [id number] Barbara Chaudhari RN NYSTATIN 664137 UNIT/ML SUSP 5ml swish and spit three tmes per days as needed NYSTATIN [id number] Singh Polk MD MERREM 1 GM INTRAVENOUS SOLUTION RECONSTITUTED [id number] HH 12/19 MEROPENEM [id number] Barbara Chaudhari RN LEVAQUIN 750 MG ORAL TABLET by mouth daily 02/20 LEVOFLOXACIN 41320377287 Singh Polk MD DIFLUCAN 150 MG TABS Take one pill daily. 05/30 FLUCONAZOLE [id number] Singh Polk MD MERREM 1 GM INTRAVENOUS SOLUTION RECONSTITUTED [id number] HH 12/19 MEROPENEM [id number] Nel H LEVAQUIN 750 MG ORAL TABLET by mouth daily 02/20 LEVOFLOXACIN 22713475538 Singh Polk MD DIFLUCAN 150 MG TABS Take one pill daily. 05/30 FLUCONAZOLE [id number] Singh Polk MD FENTANYL 25 MCG/HR PT72 apply patch to skin every 3 days FENTANYL [id number] Singh Polk MD NEURONTIN 600 MG TABS by mouth three times a day GABAPENTIN 56355592768 James K LACTINEX PACK 2 tabs by mouth twice daily LACTOBACILLUS [id number] James K COLACE 100 MG CAPS by mouth daily DOCUSATE SODIUM 63977428678 James K GABAPENTIN 300 MG CAPS 2 tabs by mouth three times a day GABAPENTIN 80836431058 James K ADVIL 200 MG CAPS 2 tabs as needed by mouth every 4 hours IBUPROFEN [id number] James K MIRALAX ORAL PACKET by mouth daily POLYETHYLENE GLYCOL 3350 [id number] James K MIRALAX ORAL PACKET by mouth daily 04/25 POLYETHYLENE GLYCOL 3350 [id number] Lorne P PERCOCET 10-325 MG TABS 1 tab as needed by mouth every six hours OXYCODONE-ACETAMI NOPHEN 20667338480 Lorne P LEVAQUIN 750 MG ORAL TABLET by mouth daily 0 02/20 LEVOFLOXACIN 23486633165 Singh Polk MD ADVIL 200 MG CAPS 2 tabs as needed by mouth every 4 hours 12/06 IBUPROFEN 24625246737 Lorne P GABAPENTIN 300 MG CAPS 2 tabs by mouth three times a day 0 02/20 GABAPENTIN 73567840403 Lorne P CYCLOBENZAPRINE HCL 10 MG TABS 1 tab as needed by mouth three times a day CYCLOBENZAPRINE HCL 57497581057 Lorne P COLACE 100 MG CAPS by mouth daily 0 03/20 DOCUSATE SODIUM 96718255634 Lorne P CVS D3 25 MCG (1000 UT) CAPS by mouth daily CHOLECALCIFEROL 71380257152 Lorne P CALCI-CHEW TABLET CHEWABLE 500 mg by mouth three times a day CALCIUM CARBONATE CHEW 67720215793 Lorne P LACTINEX PACK 2 tabs by mouth twice daily 02/20 LACTOBACILLUS 44451093181 Lorne P AMBIEN 10 MG TABS one tab as needed by mouth at bedtime ZOLPIDEM TARTRATE 84100661217 Lorne P CEFEPIME HCL 2 GM INJECTION SOLUTION RECONSTITUTED 2gm IV q12hr HH [facility] 01/18 CEFEPIME HCL [id number] Barbara Chaudhari RN Medications Administered No information available. Allergies, Adverse Reactions, Alerts Allergy Name Reaction Description Start Date Severity Statu s Provider SULFONAMIDES associated with a ma culopapular drug eruption. Moderate Active Lorne P MORPHINE Moderate Active Lorne P Results Date Name Value Unit Range Flag Description Clinical Lists Update: Prelo ad HEP C AB Reactive Hepatitis C virus Ab [Presence] in Serum Clinical Lists Update: MOC METHCONTACT cell Patient's prefered method of contact Lab Report: COMPREHENSIVE ME TABOLIC PANEL ANIONGAP 8.0 mmol/L 3.0-11.0 anion gap, serum BUN/CREAT 25.0 7.0-25.0 Urea nitrogen/Creatinine [Mass Ratio] in Serum or Plasma GFRC 110 mL/min/1 .73m2 >60 Glomerular Filtration Rate Calculation BILI TOTAL 0.4 mg/dL 0.3-1.2 Bilirubin. total [Mass/volume] in Serum or Plasma ALBUMIN 5.40 g/dL 3.20-4.80 H Albumin [Mass/volume] in Serum or Plasma PROTEIN, TOT 8.1 g/dL 5.7-8.2 Protein [Mass/volume] in Serum or Plasma CALCIUM 11.1 mg/dL 8.7-10.4 H Calcium [Moles/volume] in Serum or Plasma CO2 32.0 mmol/L 20.0-31.0 H Carbon diox michael, total [Moles/volume] in Venous blood CHLORIDE 97 mmol/L 99-109 L Chloride [Moles/volume] in Serum or Plasma Lab Report: CBC WITH AUTO DI FFERENTIAL IMMATUREGRAN 0.03 10*3/MM3 0.00-0.03 Immature granulocytes [#/volume] in Blood BASO# 0.02 10*3/mm3 0.00-0.20 Basophils [#/vol ume] in Blood EOS ABSLT 0.13 10*3/uL 0.10-0.30 Eosinophi ls [#/volume] in Blood MONOSCT AUTO 0.61 10*3/uL 0.00-1.00 Monocy neel [#/volume] in Blood by Automated count LYMPHCT AUTO 2.22 10*3/mm3 0.60-4.80 Lymph ocytes [#/volume] in Blood by Automated count ABS NEUTROPH 6.82 10*3/uL 1.50-8.30 Neutro phils [#/volume] in Blood IMM GRANU % 0.3 % 0.0-0.6 Immature granulocytes/100 leukocytes in Blood [id number]-[id number] 0.2 % 0.0-1.0 GE use only - for [employer] import when terms are not otherwise specified % EOS AUTO 1.3 % 0.0-3.0 Eosinophil s/100 leukocytes in Blood by Automated count MONOCYTE % 6.2 % 0.0-12.0 Monocytes /100 leukocytes in Blood by Automated count LYMPHOCY BF 22.6 % 24.0-44.0 L lymphoc ytes as percent of body fluid leukocytes RDW 14.0 % 11.3-14.5 Erythrocyte distribution width [Ratio] by Automated count MCHC 33.3 G/DL 32.0-36.0 MCHC [Mass/ volume] by Automated count MCH 29.9 pg 27.0-31.0 MCH [Entiti c mass] by Automated count MCV 89.9 fL 80.0-99.0 MCV [Entiti c volume] by Automated count Lab Report: C-REACTIVE PROTE IN CRPCARDRISK 0.42 MG/DL 0.00-1.00 C react monty protein [Mass/volume] in Serum or Plasma Lab Report: SEDIMENTATION RA TE ESR 35 mm/h 0-20 H Erythrocyte sedimentation rate by Westergren method Office Visit: 6 MEDS REVIEW Done Documenta tion of current medications (procedure) ORALTOBACUSE Never Tobacco smoking status SMOK ADVICE yes Smoking c essation education (procedure) CIGARET SMKG yes Tobacco smoking status SMOK STATUS Current every day smoker Tobacco smoking status Chart Maintenance: lab entry CPK 144 U/L Creatine smooth se [Enzymatic activity/volume] in Serum or Plasma ALK PHOS 190 U/L Alkaline lynn sphatase [Enzymatic activity/volume] in Blood SGPT (ALT) 28 U/L Alanine aminotransferase [Enzymatic activity/volume] in Serum or Plasma SGOT (AST) 46 U/L Aspartate aminotransferase [Enzymatic activity/volume] in Serum or Plasma POTASSIUM 4.6 mmol/L Potassium [Moles/volume] in Serum or Plasma SODIUM 139 mmol/L Sodium [Moles/volume] in Serum or Plasma CREATININE 0.7 mg/dL Creatinine [Mass/volume] in Serum or Plasma BUN 13 mg/dL Urea nitrogen [Mass/volume] in Serum or Plasma GLUCOSE SER 109 mg/dL Glucose [Mass/volume] in Serum or Plasma LYMPHS % 23.6 % Lymphocytes/ 100 leukocytes in Blood by Automated count PMN % 60.3 % Neutrophils/1 00 leukocytes in Blood by Automated count PLATELETS 492 10*3/mm3 Platelets [#/volume] in Blood by Automated count HCT 40.9 % Hematocrit [V olume Fraction] of Blood by Automated count HGB 13.9 g/dL Hemoglobin [Mass/volume] in Blood RBC 4.85 10*6/mm3 Erythrocytes [#/volume] in Blood by Automated count WBC 13.3 10*3/mm3 Leukocytes [#/volume] in Blood by Automated count Plan of Care Type Date Detail Referral MRI Lumbar Spine with/without constrast Pending order CBC with Differe ntial Pending order Sedimentation Ra te (ESR) Pending order C- reactive prot ein Pending order Continue oral an tibiotics Pending order CBC with Differe ntial Pending order CMP Pending order Sedimentation Ra te (ESR) Pending order C- reactive prot ein Pending order Continue oral an tibiotics Pending order New Oral Antibio tic Pending order Continue oral an tibiotics Pending order Continue IV anti biotics Pending order Meropenem Pending order Continue oral an tibiotics Pending order CBC with Differe ntial Pending order CMP Pending order Change IV antibi otics Pending order Continue oral an tibiotics Pending order STAT Labs Pending order CBC with Differe ntial Pending order C- reactive prot ein Pending order Sedimentation Ra te (ESR) Pending order Other Drug Pending order Meropenem Pending order Hepatitis C Atb: (ICD 10 Code: Z11.59) Pending order New IV antibioti c Pending order Continue oral an tibiotics Pending order New Oral Antibio tic Pending order CBC with Differe ntial Pending order CMP Pending order Sedimentation Ra te (ESR) Pending order C- reactive prot ein Pending order Continue IV anti biotics Pending order Cefepime Pending order Continue oral an tibiotics Patient education Medications Patient education Medications Patient education Medications Patient education Medications Patient education Medications Patient education Medications Patient education Medications Patient education Medications Patient education Medications Patient education Medications Patient education Medications Patient education Medications Patient education Medications Patient education Medications Patient education HOW%20TO%20STO P%20SMOKING Procedures Code Procedure Name Date Entry Date [id number] CBC with Differential 2016 CPT-65591 Sedimentation Rate (ESR) 201 05/25/20 CPT-97180 C- reactive protein CPT-40202 MRI Lumbar Spine with/without constrast 2 CPT-Cooral Continue oral antibiotics 08/01/09 [id number] CBC with Differential 2016 CPT-67573 CMP CPT-71258 Sedimentation Rate (ESR) 201 05/23/09 CPT-24258 C- reactive protein CPT-Cooral Continue oral antibiotics 06/11/27 CPT-francisco New Oral Antibiotic CPT-Cooral Continue oral antibiotics 06/11/06 CPT-ca Continue IV antibiotics 2015 CPT-J2185 Meropenem CPT-Cooral Continue oral antibiotics 20 07/10/15 [id number] CBC with Differential 2015 CPT-41194 CMP CPT-karlos Change IV antibiotics 11/29 CPT-Cooral Continue oral antibiotics 07/10/08 CPT-sl STAT Labs [id number] CBC with Differential 2015 CPT-10827 C- reactive protein CPT-44627 Sedimentation Rate (ESR) 201 05/02/08 CPT-OD Other Drug CPT-J2185 Meropenem 08016 Hepatitis C Atb: (ICD 10 Code: Z11.59) 20 07/10/07 CPT-abhishek New IV antibiotic CPT-Cooral Continue oral antibiotics 07/10/01 CPT-francisco New Oral Antibiotic [id number] CBC with Differential 2015 CPT-49223 CMP CPT-81429 Sedimentation Rate (ESR) 201 05/02/01 CPT-28368 C- reactive protein CPT-ca Continue IV antibiotics 2015 CPT-J0692 Cefepime CPT-Cooral Continue oral antibiotics 20 06/09/20 Vital Signs Date Name Value Unit Description BMI (Body Mass Index) 24.91 kg/m2 Bod y Mass Index (Ratio) Body Temperature 98.2 [degF] temperat ure E&M BP Diastolic 92 mm[Hg] blood pressu re, diastolic BP Systolic 132 mm[Hg] blood pressur e, systolic Heart Rate 66 /min pulse rate Height 62 [in_us] height E&M Respiratory Rate 12 /min respirat ory rate E&M Weight Measured 136.2 [lb_av] weight E& M Weight Measured 136.2 [lb_av] weight E& M Immunizations No information available. Advance Directives Directive Description Start Date NO LIVING WILL, NO DURABLE POWER OF ATTO RNEY, AND NO HEALTHCARE SURROGATE
--- OUTSIDE RECORDS SUMMARY | 2025-05-04 11:03 | XMS_ITS | Clinical Summary ---
Author Organization [facility] Address [address] [place] [address] Care Team Providers Care Math Interventionist Name Role Phone Mahesh Aranda MD Primary Care Provider [phone] Allergies Active Allergy Reactions Criticality Noted Date Comments Morphine Rash Low 10/06/2021 Morphine And Codeine Itching,Rash,Shortness of breath High 03/06/2011 Sulfa Drugs Hives,Other - please document in the comment field,Rash Medium 03/06/2011 Medications zolpidem (Ambien) 10 MG tablet Take 10 mg by mouth at night if needed for sleep. 06/02/2021 Active tiZANidine (Zanaflex) 4 MG tablet Take 4 mg by mouth 3 (three) times a day with meals. 07/17/2021 Active methadone (Dolophine) 10 MG tablet Take 120 mg by mouth 1 (one) time each day. Active amLODIPine (Norvasc) 10 MG tablet Take 10 mg by mouth 1 (one) time each day. Active acetaminophen (Tylenol Extra Strength) 500 MG tablet Take 2 tablets (1,000 mg total) by mouth 3 (three) times a day. 100 tablet 10/18/2021 Active apixaban (Eliquis) 2.5 MG tablet Take 1 tablet (2.5 mg total) by mouth 2 (two) times a day for 28 days. 60 tablet 11/20/2021 Active Active Problems Problem Noted Date Diagnosed Date History of substance use disorder 11/19/2021 Overview (11/19/2021): On Methadone 120mg daily per [facility]. Infected prosthetic knee joint 11/19/2021 Gastroesophageal reflux disease 11/12/2021 Hx of deep venous thrombosis 11/12/2021 Good tolerance for activity 11/12/2021 Infection due to spinal fixation device 09/25/20 21 Overview (09/25/2021): Added automatically from request for surgery [id number] Pyogenic arthritis of left knee joint 08/15/2021 Chronic pain of left knee 08/15/2021 Arthrofibrosis of knee joint, left 08/15/2021 Nicotine use disorder 06/20/2020 Insomnia, persistent 02/26/2020 Muscle pain, lumbar 12/19/2019 Dyslipidemia 08/07/2019 Overview (08/15/2021): Not on meds. DDD (degenerative disc disease), lumbar 04/12/20 19 Overview (08/15/2021): Is due to see spine MD at the end of July. Desires opiate pain medicine. Discussed that the risk outweighs the benefit given her hx of opiate addiction. Continue nsaids and tizanidine. S/p 4 back surgeries and 2 spinal infections. Has chronic daily pain. Pain is constant. Pain ranges from 5-7/10. Pain is low back and left hip. Pain occasionally radiates down her left leg. Has some paresthesias in left leg and foot. Pain is improved with ice and heat. Pain is worse with regular activity. Has hardware in her lumbosacral spine. Currently does not see a pain or family law specialist. Has tried chiropractor, PT, accupuncture. Takes tylenol and ibuprofen daily. Major depressive disorder, recurrent episode, mi ld 04/12/2019 Overview (08/15/2021): Was not able to tolerate cymbalta. Said that it made her feel crazy. Overall doing ok. Continue same. Has had 9 laparotomies, 4 lazer laparotomies, 4 back surgeries. Had 2 spinal infections. Secondary to multiple medical issues and ongoing pain issues has recurrent depression. In addition has a hx of IVDU and opioid use disorder. No in remission since 2012. Has taken some opiate pain medicine as prescribed since 2013. No past psych hospitalizations. Reports remote hx of [place] attempt by [place] Currently denies HSI, AVH. Has a lack of motivation and energy and crying spells. Currently is just tired of hurting. In the past has Effexor which helped. Works at [employer] in [place]. High school graduate. 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 Has good social support. Single, . 3 children that live with her. She lives with her parents. Smokes tobacco. Denies other illicit substance use. Chronic pain syndrome 04/25/2018 Lumbar radiculopathy 04/25/2018 Sepsis 04/25/2018 Mild vitamin D deficiency 09/21/2017 Essential hypertension 08/06/2017 Overview (08/15/2021): BP Readings from Last 3 Encounters: 08/07/19 130/72 04/12/19 124/76 07/19/15 100/82 Taking meds. Well controlled. Denies chest pain and SOB, swelling, dizziness or orthostatics. Stable continue same. Depression with anxiety 05/06/2017 Pyogenic inflammation of bone 05/06/2017 Kyphoscoliosis deformity of spine 04/27/2017 Chronic viral hepatitis C 12/15/2012 Encounters Date Type Department Care Team Description 05/01/2025 Community Orders [facility] [address] [place] [address] Jose Marshall DO from Last 3 Months Immunizations Immunization Administration Dates Next Due Influenza, recombinant, quad rivalent, injectable, preservative free 09/16/2020 Family History Medical History Relation Name Comments Cancer Father Diabetes Maternal Grandmother Osteoporosis Maternal Grandmother Clotting disorder Mother Osteoporosis Mother Scoliosis Other Anesthesia problems Neg Hx Malig Hyperthermia Neg Hx Relation Name Status Comments Father Maternal Grandmother Mother Other Social History Tobacco Use Types Packs/Day Years [...] on file Sexual Orientation Not on file Last Filed Vital Signs Vital Sign Reading Time Taken Comments Blood Pressure 98/70 11/20/2021 3:27 PM EST Pulse 61 11/20/2021 3:27 PM EST Temperature 36.9 C (98.5 F) 11/20/2021 3:27 PM EST Respiratory Rate 12 11/19/2021 5:40 PM EST Oxygen Saturation 95% 11/20/2021 3:27 PM EST Inhaled Oxygen Concentration - - Weight 74.9 kg (165 lb 2 oz) 11/19/2021 10:54 AM EST Height 157.5 cm (5' 2 ) 11/19/2021 10:54 AM EST Body Mass Index 30.2 11/19/2021 10:54 AM EST Plan of Treatment Health Maintenance Due Date Last Done Comments [facility]-Depression Screening 1975 [facility]-Infant/Child/Adol SDOH Screenings 1975 [facility]- SDOH Screenings 1992 [facility]-Adult SDOH Screenings 1992 [facility]-DTaP,Tdap,and Td Vaccine s (1 - Tdap) 1993 [facility]-Hepatitis B Vaccines (1 of 3 - 19+ 3-dose series) 1993 [facility]-Pap Smear 06/18/2013 06/18/2010 [facility]-Cervical Cancer Screening 06/18/2015 [facility]-HPV/Cotest 06/18/2015 06/18/2010 CT Colonography 2019 Colonoscopy 2019 FIT-DNA 2019 FIT 2019 FOBT 2019 Sigmoidoscopy 2019 [facility]-Colorectal Cancer Screening 2019 [facility]-Pneumococcal Vaccine: 50 + Years (1 of 1 - PCV) 2024 [facility]-Zoster Vaccines (1 of 2) 2024 [id number] Vaccine (1 - 20 24-25 season) 2024 [facility]-Influenza Vaccine (Seaso n Ended) 2025 09/16/2020 [facility]-Breast Cancer Screening Discontinued 02/21/2015 HPV Vaccines Aged Out No longer eligi ble based on patient's age to complete this topic [facility]-HIB Vaccines Aged Out No longer e ligible based on patient's age to complete this topic [facility]-Hepatitis A Vaccines Aged Out No longer eligible based on patient's age to complete this topic [facility]-IPV Vaccines Aged Out No longer e ligible based on patient's age to complete this topic [facility]-Rotavirus Vaccines Aged Out No lo nger eligible based on patient's age to complete this topic Medical Devices Implanted Type Area Groundsman Device Identifier Shelf Expiration Date Model / Serial / Lot Cement Palacos W/Gent - [id number] Implanted:Qty: 2 on 11/19/2021 by Singh Jarquin MD at [facility] Cement Left: Knee [id number] 04/21/2024 [id number] / / [id number] Cement Palacos W/Gent - [id number] Implanted:Qty: 2 on 11/19/2021 by Singh Jarquin MD at [facility] Cement Left: Knee [id number] 08/21/2024 [id number] / / [id number] Chg Patella Gii Oval Resurfaci - [id number] Implanted:Qty: 1 on 11/19/2021 by Singh Jarquin MD at [facility] Knee Left: Knee [employer]pherson [employer]hew [id number] 06/21/2031 [id number] / / [id number] Knee Tibial Knee Gii P/S All Poly Sz4 13mm Lt - [id number] Implanted:Qty: 1 on 11/19/2021 by Singh Jarquin MD at [facility] Knee Left: Knee [id number] 06/21/2025 [id number] / / [id number] Chg Femoral Legion Ps Special Procedures Tech Sz 5 - [id number] Implanted:Qty: 1 on 11/19/2021 by Singh Jarquin MD at [facility] Knee Left: Knee [id number] 08/05/2030 [id number] / / [id number] Dbm Putty Synthecure 10cc - [id number] Implanted:Qty: 1 on 10/13/2021 by Tomy Wong MD at [facility] N/A: Spine Lumbar [employer]oon[employer] [id number] 02/17/2023 [id number] / / [id number] Graft Jacket Thick [id number] - [id number] Implanted:Qty: 1 on 11/19/2021 by Singh Jarquin MD at [facility] Left: Knee Mak [employer]-[id number] 09/06/2022 [id number] / / [id number] Procedures Procedure Name Priority Date/Time Associated Diagnosis Comments MAMMOGRAPHY BREAST DIAGNOSTIC TOMOSYNTHESIS BILATERAL Routine 02/21/2015 11:19 AM EDT CYTO DATA CONVERSION Routine 06/18/2010 12:00 AM EDT from Last 3 Months or Most Recently Relevant to Health Maintenance Results * Mammography Breast Diagnostic Tomosynthesis Bilateral (02/21/2015 11:19 AM EDT) Anatomical Region Laterality Modality Breast Bilateral Mammography Impressions 02/21/2015 1:28 PM EDT BI-RADS Assessment Category 3: Probably benign finding. RECOMMENDATION: Finding 2: Short term follow-up mammogram of the left breast in 6 months. Finding 3: Linical management of focal tenderness. COMMUNICATION: The results and recommendations were discussed with the patient and a printed lay language version of the imaging report was given to the patient at the time of the visit. The mammogram was read with the assistance of CAD. Read By: Mack Siegel M.D. Signed By: Mack Siegel M.D. on 02/21/2015 Page 2 of 2 Read By: MACK SIEGEL M.D. Signed By: MACK SIEGEL M.D. on 02/21/2015 at 13:28:13 Narrative 02/21/2015 1:28 PM EDT Patient Name:Susan Sharma : 1975 Age: 39 Gender: femaleDate of Service: 02/21/2015 Referring Phy:Fabiola BrizuelaAccount: [id number] Fabiola Brizuela , FINAL REPORT PROCEDURE: Tomosynthesis Diagnostic Bilateral - bilateral , Diagnostic Mammogram with CAD - bilateral , Additional mammographic views - left breast and Left Breast Ultrasound limited and Axilla - left HISTORY: Patient is 39 years old and is seen for a diagnostic new issue and breast pain the left breast at 3 o'clock. The patient has no history of breast surgery The patient has the following family history of breast cancer: maternal aunt, at age 62, breast cancer, specified type unknown and cousin female, at age 40, breast cancer, specified type unknown, maternal-1st. COMPARISON: The present examination has been compared to prior imaging studies performed at [facility] on 01/20/2012 and 02/15/2013, and at an outside location on 04/17/2009 and 05/13/2009. MAMMOGRAM TECHNIQUE: The following mammographic views were obtained: bilateral craniocaudal; bilateral mediolateral oblique; and bilateral tomosynthesis images were obtained. Computer assisted detection was used in the interpretation of this study. ULTRASOUND TECHNIQUE: High-resolution real-time ultrasound scanning was performed. MAMMOGRAM FINDINGS: There are scattered areas of fibroglandular density. Finding 1: There is a stable mass measuring 6 mm in the left breast at 6 o'clock. The findings are confirmed with tomosynthesis. Ultrasound was performed to further evaluate. Finding 2: There is an asymmetry measuring 5 mm seen in the CC view only in the left breast located 5 centimeters from the nipple. The findings are confirmed with CC tomosynthesis. Ultrasound was performed to further evaluate. In the right breast, no masses, suspicious microcalcifications or architectural distortion are evident. ULTRASOUND FINDINGS: Finding 1: A focused ultrasound was performed in the left breast at 6 o'clock 5 cm from the nipple using a radial and anti-radial approach. Ultrasound demonstrates a stable 6 mm round mass. Internal echotexture is isoechoic.Stable since Page 1 of 2 Patient Name:Susan Sharma : 1975 Age: 39 Gender: femaleDate of Service: 02/21/2015 Referring Phy:Fabiola BrizuelaAccount: [id number] 01/20/12 ultrasound. Finding 2: A focused ultrasound was performed in the left breast from 12 o'clock to 6 o'clock using a radial and anti-radial approach. Ultrasound demonstrates no findings in the left breast located 5 centimeters from the nipple to correlate with the mammographic asymmetry. Finding 3: A focused ultrasound was performed in the left breast in the area of the focal tenderness at 3 o'clock 6 cm from the nipple using a radial and anti-radial approach. There is no sonographic correlate to the area of focal tenderness. Procedure Note Mack Siegel MD - 03/30/2021 Patient Name:Susan Sharma : 1975 Age: 39 Gender: femaleDate of Service:02/21/2015 Referring Phy:Fabiola BrizuelaAccount: [phone] Fabiola Brizuela , FINAL REPORT PROCEDURE: Tomosynthesis Diagnostic Bilateral - bilateral , Diagnostic Mammogram withCAD - bilateral , Additional mammographic views - left breast and Left Breast Ultrasound limited and Axilla - left HISTORY: Patient is 39 years old and is seen for a diagnostic new issue and breastpain the left breast at 3 o'clock. The patient has no history of breast surgery The patient has the following familyhistory of breast cancer: maternal aunt, at age 62, breast cancer, specified type unknown and cousin female, at age 40, breastcancer, specified type unknown, maternal-1st. COMPARISON: The present examination has been compared to [facility]2013, and at an outside location on 04/17/2009 and 05/13/2009. MAMMOGRAM TECHNIQUE: The following mammographic views were obtained: bilateral craniocaudal;bilateral mediolateral oblique; and bilateral tomosynthesis images were obtained. Computer assisted detection was usedin the interpretation of this study. ULTRASOUND TECHNIQUE: High-resolution real-time ultrasound scanning was performed. MAMMOGRAM FINDINGS: There are scattered areas of fibroglandular density. Finding 1: There is a stable mass measuring 6 mm in the left breast at 6o'clock. The findings are confirmed with tomosynthesis. Ultrasound was performed to further evaluate. Finding 2: There is an asymmetry measuring 5 mm seen in the CC view onlyin the left breast located 5 centimeters from the nipple. The findings are confirmed with CC tomosynthesis. Ultrasoundwas performed to further evaluate. In the right breast, no masses, suspicious microcalcifications orarchitectural distortion are evident. ULTRASOUND FINDINGS: Finding 1: A focused ultrasound was performed in the left breast at 6o'clock 5 cm from the nipple using a radial and anti-radial approach. Ultrasound demonstrates a stable 6 mm round mass.Internal echotexture is isoechoic.Stable since Page 1 of 2 Patient Name:Susan Sharma : 1975 Age: 39 Gender: femaleDate of Service:02/21/2015 Referring Phy:Fabiola BrizuelaAccount: [id number] 01/20/12 ultrasound. Finding 2: A focused ultrasound was performed in the left breast from 12o'clock to 6 o'clock using a radial and anti-radial approach. Ultrasound demonstrates no findings in the leftbreast located 5 centimeters from the nipple to correlate with the mammographic asymmetry. Finding 3: A focused ultrasound was performed in the left breast in thearea of the focal tenderness at 3 o'clock 6 cm from the nipple using a radial and anti-radial approach. There is nosonographic correlate to the area of focal tenderness. IMPRESSION: BI-RADS Assessment Category 3: Probably benign finding. RECOMMENDATION: Finding 2: Short term follow-up mammogram of the left breast in 6months. Finding 3: Linical management of focal tenderness. COMMUNICATION: The results and recommendations were discussed with the patient and aprinted lay language version of the imaging report was given to the patient at the time of the visit. The mammogram was readwith the assistance of CAD. Read By: Mack Siegel M.D. Signed By: Mack Siegel M.D. on 02/21/2015 Page 2 of 2 Read By: MACK SIEGEL M.D. Signed By: MACK SIEGEL M.D. on 02/21/2015 at 13:28:13 us Historical Provider MD MINOR BI PROCEDURES Final R esult * Cytology (06/18/2010 12:00 AM EDT) 06/18/2010 06/19/2010 10: 53 AM EDT Narrative SUNQUEST - 06/23/2010 10:14 AM EDT [facility] MR #: [id number] [facility] [place], [place] [address] 1975 (Age: 35) FW Collect Date: 06/18/2010 00:00 Receipt Date: 06/19/2010 10:53 Page 1 DEPARTMENT OF PATHOLOGY AND LABORATORY MEDICINE CYTOPATHOLOGY REPORT Email: [email or web address] [phone] ATTENDING MD/Practitioner: Westley Brizuela MD Service: OBE Location: [facility] Reported: 06/23/2010 10:14 Collected: 06/18/2010 00:00 INTERPRETATION A. THIN PREP (VAGINAL): NEGATIVE FOR INTRAEPITHELIAL LESION OR MALIGNANCY. SATISFACTORY FOR EVALUATION. Slide scanned and imaged by [facility] ThinPrep Imaging System with manual review of all selected rosado. Electronically Signed Out By SHEEBA Dailey(ASCP) SHEEBA Dailey(ASCP) Cervical cytology is a screening test primarily for squamous cancers and precursors and has associated false negative and positive results. New technologies such as liquid based sampling may decrease but will not eliminate all false negative results. Regular screening and follow-up of unexplained clinical signs and symptoms are recommended to minimize false negative results. Please see the ASCCP website (www.asccp.org) for followup recommendations. If HPV testing was requested, correlation with the results is suggested (please call Microbiology at [phone] for results). CLINICAL INFORMATION: Menstrual History: Post-hysterectomy Date of Last Menstrual Period: {Not Provided} Other Clinical Conditions: Abnormal pap results elsewhere Date and code not provided If ASCUS and > 24 years of age, HPV/DNA testing requested. SPECIMEN DESCRIPTION: A: THIN PREP (VAGINAL) THIN PREP PROCESS CELLULAR ENHANCEMENT ICD: V76.47 VAGINA, SPECIAL SCREENING FOR MALIGNANT NEOPLASMS F: A; RT IMAGE [id number] SNOMED CODES: A; [id number] In cases where a pathologist has signed out the report, the service has been rendered in part by a resident. The signing pathologist has performed and is responsible for the reported pathologic evaluation. us Historical Provider MD LAB PATHOLOGY ORDERABLES Final Result Harry and David from Last 3 Months or Most Recently Relevant to Health Maintenance Insurance AETNA [facility] MEDICAID Advance Directives * Full Code (Latest Code Status on File) Date Activated Date Inactivated Comments 11/19/2021 12:30 PM 11/20/2021 6:20 PM Question Answer Comments Patient has decision-making capacity? Yes * Full Code Date Activated Date Inactivated Comments 10/13/2021 11:33 AM 10/19/2021 1:29 PM Question Answer Comments Patient has decision-making capacity? Yes Care Teams Math Interventionist Relationship Specialty Start Date End Date Mahesh Aranda MD PCP - General 11/19/21
--- OUTSIDE RECORDS SUMMARY | 2025-05-04 11:03 | XMS_ITS | Referral Summary ---
Author Organization [facility] Address [address] [place] [address] [place] [address] Care Team Providers Care Dry Paste Supervisor Name Role Phone Unavailable Primary Care Provider Unavailabl e Social History Tobacco Use Types Packs/Day Years Used Date Smoking Tobacco: Never Assessed Comments Unknown Sex and Gender Information Value Date Recorded Sex Assigned at Not on file Legal Sex Female 10:23 PM EDT Gender Identity Not on file Sexual Orientation Not on file Plan of Treatment Not on file
--- OUTSIDE RECORDS SUMMARY | 2025-05-04 11:04 | XMS_ITS | Clinical Summary ---
Author Organization [facility] Address [facility] [place] [address] Care Team Providers Care Ethnic Studies Professor Name Role Phone Pcp, No Primary Care Provider [phone] Source Comments This information has been disclosed to you from confidential records protectedfrom disclosure by state law. You shall make no further disclosure of thisinformation without the specific, written, and informed release of theindividual to whom it pertains, or as otherwise permitted by law. A generalauthorization for the release of medical or other information is not sufficientfor the purposes of therelease of HIV test results or diagnoses. [id number] Allergies No known active allergies Medications No known medications Social History Tobacco Use Types Packs/Day Years Used Date Smoking Tobacco: Every Day Alcohol Use Standard Drinks/Week Comments No 0 (1 standard drink = 0.6 oz pur e alcohol) Comments Unknown Sex and Gender Information Value Date Recorded Sex Assigned at Not on file Legal Sex Female 9:31 PM EST Gender Identity Not on file Sexual Orientation Not on file Last Filed Vital Signs Vital Sign Reading Time Taken Comments Blood Pressure 147/123 12/30/2016 5:41 PM EST Pulse 96 12/30/2016 5:41 PM EST Temperature 36.6 C (97.9 F) 12/30/2016 5:41 PM EST Respiratory Rate 18 12/30/2016 5:41 PM EST Oxygen Saturation 100% 12/30/2016 5:41 PM EST Inhaled Oxygen Concentration 100% 12/30/2016 5 :41 PM EST Weight - - Height - - Body Mass Index - - Plan of Treatment Not on file Insurance AETNA [facility] Care Teams Ethnic Studies Professor Relationship Specialty Start Date End Date Pcp, No No Address PCP - General Pediatrics 12/30/16
--- OUTSIDE RECORDS SUMMARY | 2025-05-04 11:04 | XMS_ITS | Clinical Summary ---
Author Organization [facility] Address [address] [place] [address] [address] [place] [address] Care Team Providers Care Coding Clerk Name Role Phone Unavailable Primary Care Provider Unavailabl e Social History Tobacco Use Types Packs/Day Years Used Date Smoking Tobacco: Never Assessed Comments Unknown Sex and Gender Information Value Date Recorded Sex Assigned at Not on file Legal Sex Female 10:23 PM EDT Gender Identity Not on file Sexual Orientation Not on file Plan of Treatment Health Maintenance Due Date Last Done Comments DTap,Tdap,and Td (1 - Tdap) 1985 Pap Screening 1995 Mammogram Screening 2014 Colonoscopy 2019 Pneumococcal 50+ (1 of 1 - PCV) 2024 Shingrix (#1) 2024 Influenza Vaccine (Season Ended) 2025 RSV Vaccine (60+ or ) (1 - 1-dose 75+ series) 2049 HPV Aged Out No longer eligi ble based on patient's age to complete this topic Meningococcal conjugate chen nt 4 (MCV4) Aged Out No longer eligible b ased on patient's age to complete this topic RSV Immunization (<20 months) Aged Out No longer eligible based on patient's age to complete this topic
--- OUTSIDE RECORDS SUMMARY | 2025-05-04 11:04 | XMS_ITS | Data Portability ---
Author Organization [facility] Address [address] [address] [place] [address] Care Team Providers Care Manager Of [employer] Name Role Phone DARCYARRON ZHANG Referring Provider Assessment Encounter Date Assessment Date Assessment LastModified by Organization Details LastModified Time 04/28/2018 04/28/2018 Susan Balbuena is a pleasant 43-year-old female with a history of chronic low back pain with radiation into the hips and legs. She has a complicated medical history consisting of multiple surgeries with osteomyelitis requiring multiple rounds of IV antibiotics. She has had a total of 4 spine surgeries 3 within the last year she is also had sepsis from complications with her osteomyelitis she has had facet hardware placed that subsequently broke her last surgery was April [address] Wheat. We had a long discussion about different options available to her including intrathecal pain pump trial. However given patient's high risk for infection with previous osteomyelitis and sepsis we opted to avoid this plan. We also discussed continuing with her medical regimen consisting of Percocet 7.5/325 4 times a day and Neurontin 600 mg 4 times a day as needed. [email or web address] Not available 04/28/2018 17:29:23 05/27/2018 05/27/2018 She has a history of chronic low back pain with radiation into the hips and legs. She has a complicated medical history consisting of multiple surgeries with osteomyelitis requiring multiple rounds of IV antibiotics. She has had a total of 4 spine surgeries 3 within the last years. She suffered sepsis from complications with her osteomyelitis resulting in replacement of facet hardware. Her last surgery was April [address] Wheat. Considering her infectious history, she is currently a poor candidate for any implanted devices such as a pain pump. The patient reports her pain is unchanged since last visit. She reports the current medication regimen works well to control her discomfort. She denies negative side effects. Medication refill for Percocet 7.5/325mg QID #120 with fill date 05/27/18 and 06/25/18, Gabapentin 600mg QID #120. Not available 05/27/2018 19:26:33 07/27/2018 07/27/2018 She has a history of chronic low back pain with radiation into the hips and legs. She has a complicated medical history consisting of multiple surgeries with osteomyelitis requiring multiple rounds of IV antibiotics. She has had a total of 4 spine surgeries 3 within the last years. She suffered sepsis from complications with her osteomyelitis resulting in replacement of facet hardware. Her last surgery was April [address] Wheat. Considering her infectious history, she is currently a poor candidate for any implanted devices such as a pain pump. The patient reports her pain is unchanged since last visit. She reports the current medication regimen works well to control her discomfort. She denies negative side effects. Medication refill for Percocet 7.5/325mg QID #120 with fill date 07/27/18 and 08/24/18, Gabapentin 600mg QID #120. RTO 60 days. Not available 07/27/2018 14:14:10 09/23/2018 09/23/2018 She has a history of chronic low back pain with radiation into the hips and legs. She has a complicated medical history consisting of multiple surgeries with osteomyelitis requiring multiple rounds of IV antibiotics. She has had a total of 4 spine surgeries 3 within the last years. She suffered sepsis from complications with her osteomyelitis resulting in replacement of facet hardware. Her last surgery was April [address] Wheat. Considering her infectious history, she is currently a poor candidate for any implanted devices such as a pain pump. The patient reports her pain is unchanged since last visit. She reports the current medication regimen works well to control her discomfort. She denies negative side effects. Medication refill for Percocet 7.5/325mg QID #120 with fill date 09/23/18 and 10/21/18, Gabapentin 600mg QID #120. RTO 60 days. (Fill dates adjusted due to pharmacy not open on weekends). Not available 09/23/2018 15:35:47 Plan of Treatment Reminders Order Date Submit Date Provider Last Modified By Organization Details Last Modified Time Details Appointments None recorded. Lab drug screen, urine 2017 018 [facility] [address], [place], [address], 8 22:11:01 drug screen, urine 2017 018 [place] [address] [place] [facility] [address], [place], [address], 8 12:59:02 drug screen, urine 2017 [address]18 [place] [address] [facility] [address], [place], [address], 8 19:26:34 drug screen, urine 2017 [facility] [place] [facility] [address], [place], [address], 8 17:31:53 Referral None recorded. Procedures None recorded. Surgeries None recorded. Imaging None recorded. Medication Orders gabapentin 600 mg tablet 2017 018 INTERFACE [facility], [address] [place] [address], [id number], 8 20:31:19 Percocet 7.5 mg-325 mg tablet 2017 018 INTERFACE [facility], [address] [place] [address], [id number], 8 16:33:06 Percocet 7.5 mg-325 mg tablet 2017 [facility]18 [facility], [address] [place] [address], [id number], 8 17:17:36 gabapentin 600 mg tablet 2017 018 INTERFACE [facility], [address] [place] [address] [place], ABBI Riley, [id number], 8 17:00:13 Percocet 7.5 mg-325 mg tablet 2017 018 INTERFACE [facility], [address] [place] [address] [place], [id number], 8 17:00:16 Percocet 7.5 mg-325 mg tablet 2017 018 INTERFACE [facility], [address] [place] [address] [place], [id number], 8 17:00:19 Percocet 7.5 mg-325 mg tablet 2017 018 INTERFACE [facility], [address] [place] [address] [place], [id number], 8 16:10:51 gabapentin 600 mg tablet 2017 018 INTERFACE [facility], [address] [place] [address] [place], [id number], 8 16:10:53 Percocet 7.5 mg-325 mg tablet 2017 018 INTERFACE [facility], [address] [place] [address] [place], [id number], 8 16:10:58 Patient Targets Encounter Date Encounter Id Patient Goals Patient Target Last Modified By Organization Details Last Modified Time 04/28/2018 [id number] Patient hopes to remain active and be able to ambulate to participate in activities of daily living. [email or web address] Not available 04/28/2018 17:30:08 Patient InstructionsNo instructions recorded. Reason for Referral None Reported. Results Created Date Observation Date Name Description Value Unit Range Abnormal Flag Note LastModifiedBy Organization Detail LastModifiedTime 04/28/20 18 04/28/2018 drug scree n, urine THC: negati ve Not Available [address], [place], [address], 04/28/2018 15:21:30 04/28/20 18 04/28/2018 drug scree n, urine Buprenorphin e: negati ve Not Available [address], [place], [address], 04/28/2018 15:21:30 04/28/20 18 04/28/2018 drug scree n, urine TCA: negati ve Not Available [address], [place], [address], 04/28/2018 15:21:30 04/28/20 18 04/28/2018 drug scree n, urine Barbiturates : negati ve Not Available [address], [place], [address], 04/28/2018 15:21:30 04/28/20 18 04/28/2018 drug scree n, urine Benzodiazepi maria antonia: negati ve Not Available [address], [place], [address], 04/28/2018 15:21:30 04/28/20 18 04/28/2018 drug scree n, urine Methadone: negati ve Not Available [address], [place], [address], 04/28/2018 15:21:30 04/28/20 18 04/28/2018 drug scree n, urine Amphetamines : negati ve Not Available [address], [place], [address], 04/28/2018 15:21:30 04/28/20 18 04/28/2018 drug scree n, urine Morphine/Opi ates: positi ve Not Available [address], [place], [address], 04/28/2018 15:21:30 04/28/20 18 04/28/2018 drug scree n, urine Oxycodone: negati ve Not Available [place] [address], [place], [address], 04/28/2018 15:21:30 04/28/20 18 04/28/2018 drug scree n, urine MDMA: negati ve Not Available [place] [address], [place], [address], 04/28/2018 15:21:30 04/28/20 18 04/28/2018 drug scree n, urine Cocaine: negati ve Not Available [place] [address], [place], [address], 04/28/2018 15:21:30 04/28/20 18 04/28/2018 drug scree n, urine Methamphetam ine: negati ve Not Available [address], [place], [address], 04/28/2018 15:21:30 04/29/20 18 04/29/2018 drug confi rmati on, urine abnormal status abnormal Not Available [facility], [address], [address], 05/19/2018 16:21:36 04/29/20 18 04/29/2018 speci men valid ity testi ng urine creatinine 153 mg/dL 44-355 normal Not Available [facility], [facility] [address] [place], [address], 05/19/2018 16:21:35 04/29/20 18 04/29/2018 speci men valid ity testi ng pH 7 4-9 normal Presc ribed Medic ation s: Gabap entin (Dave penti n), Zolpi dem (Zolp idem) , Effex or (--), Ibupr ofen (--), Olept ro (--), Zanaf blanca (--) Not Available [facility], [facility], [address], [address], 05/19/2018 16:21:35 04/29/20 18 04/29/2018 ssri citalopram Not Detect ed NG/mL 75 normal Not Available [facility], [address], [address], 05/19/2018 16:21:35 04/29/20 18 04/29/2018 ssri N-desmethylc italopram Not Detect ed NG/mL 75 normal Not Available [facility], [address], [address], 05/19/2018 16:21:35 04/29/20 18 04/29/2018 ssri fluoxetine Not Detect ed NG/mL 75 normal Not Available [facility], [address], [address], 05/19/2018 16:21:35 04/29/20 18 04/29/2018 ssri norfluoxetin e Not Detect ed NG/mL 75 normal Not Available [facility], [address], [address], 05/19/2018 16:21:35 04/29/20 18 04/29/2018 ssri paroxetine Not Detect ed NG/mL 75 normal Not Available [facility], [address], [address], 05/19/2018 16:21:35 04/29/20 18 04/29/2018 ssri sertraline Not Detect ed NG/mL 75 normal Presc ribed Medic ation s: Gabap entin (Dave penti n), Zolpi dem (Zolp idem) , Effex or (--), Ibupr ofen (--), Olept ro (--), Zanaf blanca (--) Not Available [facility], [address], [address], 05/19/2018 16:21:35 04/29/20 18 04/29/2018 amphe tamin es D/L - amphetamine Not Detect ed NG/mL 75 normal Not Available [facility], [address], [address], 05/19/2018 16:21:34 04/29/20 18 04/29/2018 amphe tamin es D/L - methamphetam ine Not Detect ed NG/mL 75 normal Not Available [facility], [address], [address], 05/19/2018 16:21:34 04/29/20 18 04/29/2018 amphe tamin es ritalinic acid Not Detect ed NG/mL 75 normal Presc ribed Medic ation s: Gabap entin (Dave penti n), Zolpi dem (Zolp idem) , Effex or (--), Ibupr ofen (--), Olept ro (--), Zanaf blanca (--) Not Available [facility], [address], [address], 05/19/2018 16:21:34 04/29/20 18 04/29/2018 elfego turat es butalbital Not Detect ed NG/mL 150 normal Not Available [facility], [address], [address], 05/19/2018 16:21:34 04/29/20 18 04/29/2018 elfego turat es phenobarbita l Not Detect ed NG/mL 150 normal Presc ribed Medic ation s: Gabap entin (Dave penti n), Zolpi dem (Zolp idem) , Effex or (--), Ibupr ofen (--), Olept ro (--), Zanaf blanca (--) Not Available [facility], [address], [address], 05/19/2018 16:21:34 04/29/20 18 04/29/2018 thera peuti c drugs carisoprodol -soma Not Detect ed NG/mL 75 normal Not Available [facility], [address], [address], 05/19/2018 16:21:34 04/29/20 18 04/29/2018 thera peuti c drugs meprobamate Not Detect ed NG/mL 75 normal Pres ribed Medic ation s: Gabap entin (Dave penti n), Zolpi dem (Zolp idem) , Effex or (--), Ibupr ofen (--), Olept ro (--), Zanaf blanca (--) Not Available [facility], [address], [address], 05/19/2018 16:21:34 04/29/20 18 04/29/2018 benzo diaze pines 7-aminoclona zepam Not Detect ed NG/mL 60 normal Not Available [facility], [address], [address], 05/19/2018 16:21:33 04/29/20 18 04/29/2018 benzo diaze pines alprazolam Not Detect ed NG/mL 60 normal Not Available [facility], [address], [address], 05/19/2018 16:21:33 04/29/20 18 04/29/2018 benzo diaze pines alpha-hydrox yalprazolam Not Detect ed NG/mL 60 normal Not Available [facility], [address], [address], 05/19/2018 16:21:33 04/29/20 18 04/29/2018 benzo diaze pines lorazepam Not Detect ed NG/mL 60 normal Not Available [facility], [address], [address], 05/19/2018 16:21:33 04/29/20 18 04/29/2018 benzo diaze pines nordiazepam Not Detect ed NG/mL 60 normal Not Available [facility], [address], [address], 05/19/2018 16:21:33 04/29/20 18 04/29/2018 benzo diaze pines oxazepam Not Detect ed NG/mL 60 normal Not Available [facility], [address], [address], 05/19/2018 16:21:33 04/29/20 18 04/29/2018 benzo diaze pines temazepam Not Detect ed NG/mL 60 normal Presc ribed Medic ation s: Gabap entin (Dave penti n), Zolpi dem (Zolp idem) , Effex or (--), Ibupr ofen (--), Olept ro (--), Zanaf blanca (--) Not Available [facility], [address], [address], 05/19/2018 16:21:33 04/29/20 18 04/29/2018 dave analo gs gabapentin 6054 POSITI VE NG/mL 225 abnormal Not Available [facility], [address], [address], 05/19/2018 16:21:33 04/29/20 18 04/29/2018 dave analo gs pregabalin Not Detect ed NG/mL 225 normal Not Available [facility], [address], [address], 05/19/2018 16:21:33 04/29/20 18 04/29/2018 dave analo gs zaleplon Not Detect ed NG/mL 7.5 normal Not Available [facility], [address], [address], 05/19/2018 16:21:33 04/29/20 18 04/29/2018 dave analo gs zolpidem 438 POSITI VE NG/mL 75 abnormal Presc ribed Medic ation s: Gabap entin (Dave penti n), Zolpi dem (Zolp idem) , Effex or (--), Ibupr ofen (--), Olept ro (--), Zanaf blanca (--) Not Available [facility], [address], [address], 05/19/2018 16:21:33 04/29/20 18 04/29/[address] antag buprenorphin e Not Detect ed NG/mL 7.5 normal Not Available [facility], [address], [address], 05/19/2018 16:21:32 04/29/20 18 04/29/[address] antag norbuprenorp jamie Not Detect ed NG/mL 37.5 normal Not Available [facility], [address], [address], 05/19/2018 16:21:32 04/29/20 18 04/29/[address] antag naloxone Not Detect ed NG/mL 75 normal Not Available [facility], [address], [address], 05/19/2018 16:21:32 04/29/20 18 04/29/[address] antag pentazocine Not Detect ed NG/mL 22.5 normal Presc ribed Medic ation s: Gabap entin (Dave penti n), Zolpi dem (Zolp idem) , Effex or (--), Ibupr ofen (--), Olept ro (--), Zanaf blanca (--) Not Available [facility], [address], [address], 05/19/2018 16:21:32 04/29/20 18 04/29/2018 opiat es/op ioids codeine Not Detect ed NG/mL 75 normal Not Available [facility], [address], [address], 05/19/2018 16:21:32 04/29/20 18 04/29/2018 opiat es/op ioids fentanyl Not Detect ed NG/mL 6 normal Not Available [facility], [address], [address], 05/19/2018 16:21:32 04/29/20 18 04/29/2018 opiat es/op ioids norfentanyl Not Detect ed NG/mL 6 normal Not Available [facility], [address], [address], 05/19/2018 16:21:32 04/29/20 18 04/29/2018 opiat es/op ioids morphine Not Detect ed NG/mL 75 normal Not Available [facility], [address], [address], 05/19/2018 16:21:32 04/29/20 18 04/29/2018 opiat es/op ioids hydrocodone Not Detect ed NG/mL 75 normal Not Available [facility], [address], [address], 05/19/2018 16:21:32 04/29/20 18 04/29/2018 opiat es/op ioids norhydrocodo ne 105 POSITI VE NG/mL 75 abnormal Not Available [facility], [address], [address], 05/19/2018 16:21:32 04/29/20 18 04/29/2018 opiat es/op ioids hydromorphon e Not Detect ed NG/mL 75 normal Not Available [facility], [address], [address], 05/19/2018 16:21:32 04/29/20 18 04/29/2018 opiat es/op ioids oxycodone Not Detect ed NG/mL 37.5 normal Not Available [facility], [address], [address], 05/19/2018 16:21:32 04/29/20 18 04/29/2018 opiat es/op ioids noroxycodone Not Detect ed NG/mL 37.5 normal Not Available [facility], [address], [address], 05/19/2018 16:21:32 04/29/20 18 04/29/2018 opiat es/op ioids oxymorphone Not Detect ed NG/mL 75 normal Not Available [facility], [address], [address], 05/19/2018 16:21:32 04/29/20 18 04/29/2018 opiat es/op ioids meperidine Not Detect ed NG/mL 37.5 normal Not Available [facility], [address], [address], 05/19/2018 16:21:32 04/29/20 18 04/29/2018 opiat es/op ioids normeperidin e Not Detect ed NG/mL 37.5 normal Not Available [facility], [address], [address], 05/19/2018 16:21:32 04/29/20 18 04/29/2018 opiat es/op ioids methadone Not Detect ed NG/mL 75 normal Not Available [facility], [address], [address], 05/19/2018 16:21:32 04/29/20 18 04/29/2018 opiat es/op ioids methadone (EDDP) Not Detect ed NG/mL 75 normal Not Available [facility], [address], [address], 05/19/2018 16:21:32 04/29/20 18 04/29/2018 opiat es/op ioids propoxyphene Not Detect ed NG/mL 75 normal Not Available [facility], [address], [address], 05/19/2018 16:21:32 04/29/20 18 04/29/2018 opiat es/op ioids norpropoxyph arron Not Detect ed NG/mL 75 normal Not Available [facility], [address], [address], 05/19/2018 16:21:32 04/29/20 18 04/29/2018 opiat es/op ioids tapentadol Not Detect ed NG/mL 37.5 normal Not Available [facility], [address], [address], 05/19/2018 16:21:32 04/29/20 18 04/29/2018 opiat es/op ioids tramadol Not Detect ed NG/mL 75 normal Not Available [facility], [address], [address], 05/19/2018 16:21:32 04/29/20 18 04/29/2018 opiat es/op ioids P-iiq-gxwubf -cis-tramado l Not Detect ed NG/mL 75 normal Presc [facility] Medic ation s: Gabap entin (Dave penti n), Zolpi dem (Zolp idem) , Effex or (--), Ibupr ofen (--), Olept ro (--), Zanaf blanca (--) Not Available [facility], [address], [address], 05/19/2018 16:21:32 04/29/20 18 04/29/2018 drug confi rmati on, urine comment: See Compon ents normal Presc ribed Medic ation s: Gabap entin (Dave penti n), Zolpi dem (Zolp idem) , Effex or (--), Ibupr ofen (--), Olept ro (--), Zanaf blanca (--) Not Available [facility], [address], [address], 05/19/2018 16:21:31 05/27/20 18 05/27/2018 drug scree n, urine THC: negati ve Not Available [place] [address], [place], [address], 05/27/2018 13:24:25 05/27/20 18 05/27/2018 drug scree n, urine Buprenorphin e: negati ve Not Available [address], [place], [address], 05/27/2018 13:24:25 05/27/20 18 05/27/2018 drug scree n, urine TCA: negati ve Not Available [address], [place], [address], 05/27/2018 13:24:25 05/27/20 18 05/27/2018 drug scree n, urine Barbiturates : negati ve Not Available [place] [address], [place], [address], 05/27/2018 13:24:25 05/27/20 18 05/27/2018 drug scree n, urine Benzodiazepi maria antonia: negati ve Not Available [place] [address], [place], [address], 05/27/2018 13:24:25 05/27/20 18 05/27/2018 drug scree n, urine Methadone: negati ve Not Available [place] [address], [place], [address], 05/27/2018 13:24:25 05/27/20 18 05/27/2018 drug scree n, urine Amphetamines : negati ve Not Available [address], [place], [address], 05/27/2018 13:24:25 05/27/20 18 05/27/2018 drug scree n, urine Morphine/Opi ates: negati ve Not Available [address], [place], [address], 05/27/2018 13:24:25 05/27/20 18 05/27/2018 drug scree n, urine Oxycodone: positi ve Not Available [address], [place], [address], 05/27/2018 13:24:25 05/27/20 18 05/27/2018 drug scree n, urine MDMA: negati ve Not Available [address], [place], [address], 05/27/2018 13:24:25 05/27/20 18 05/27/2018 drug scree n, urine Cocaine: negati ve Not Available [address], [place], [address], 05/27/2018 13:24:25 05/27/20 18 05/27/2018 drug scree n, urine Methamphetam ine: negati ve Not Available [address], [place], [address], 05/27/2018 13:24:25 07/27/20 18 07/27/2018 drug scree n, urine THC: negati ve Not Available [place] [address], [place], [address], 07/27/2018 13:53:37 07/27/20 18 07/27/2018 drug scree n, urine Buprenorphin e: negati ve Not Available [address], [place], [address], 07/27/2018 13:53:37 07/27/20 18 07/27/2018 drug scree n, urine TCA: positi ve Not Available [address], [place], [address], 07/27/2018 13:53:37 07/27/20 18 07/27/2018 drug scree n, urine Barbiturates : negati ve Not Available [address], [place], [address], 07/27/2018 13:53:37 07/27/20 18 07/27/2018 drug scree n, urine Benzodiazepi maria antonia: negati ve Not Available [address], [place], [address], 07/27/2018 13:53:37 07/27/20 18 07/27/2018 drug scree n, urine Methadone: negati ve Not Available [address], [place], [address], 07/27/2018 13:53:37 07/27/20 18 07/27/2018 drug scree n, urine Amphetamines : negati ve Not Available [address], [place], [address], 07/27/2018 13:53:37 07/27/20 18 07/27/2018 drug scree n, urine Morphine/Opi ates: negati ve Not Available [address], [place], [address], 07/27/2018 13:53:37 07/27/20 18 07/27/2018 drug scree n, urine Oxycodone: positi ve Not Available [address], [place], [address], 07/27/2018 13:53:37 07/27/20 18 07/27/2018 drug scree n, urine MDMA: negati ve Not Available [facility] [address], [place], [address], 07/27/2018 13:53:37 07/27/20 18 07/27/2018 drug scree n, urine Cocaine: negati ve Not Available [facility] [address], [place], [address], 07/27/2018 13:53:37 07/27/20 18 07/27/2018 drug scree n, urine Methamphetam ine: negati ve Not Available [facility] [address], [place], [address], 07/27/2018 13:53:37 09/23/20 18 09/23/2018 drug scree n, urine THC: negati ve Not Available [facility] [address], [place], [address], 09/23/2018 15:14:53 09/23/20 18 09/23/2018 drug scree n, urine Buprenorphin e: positi ve Not Available [facility] [address], [place], [address], 09/23/2018 15:14:53 09/23/20 18 09/23/2018 drug scree n, urine TCA: negati ve Not Available [facility] [address], [place], [address], 09/23/2018 15:14:53 09/23/20 18 09/23/2018 drug scree n, urine Barbiturates : negati ve Not Available [facility] [address], [place], [address], 09/23/2018 15:14:53 09/23/20 18 09/23/2018 drug scree n, urine Benzodiazepi maria antonia: negati ve Not Available [facility] [address], [place], [address], 09/23/2018 15:14:53 09/23/20 18 09/23/2018 drug scree n, urine Methadone: negati ve Not Available [facility] [address], [place], [address], 09/23/2018 15:14:53 09/23/20 18 09/23/2018 drug scree n, urine Amphetamines : negati ve Not Available [facility] [address], [place], [address], 09/23/2018 15:14:53 09/23/20 18 09/23/2018 drug scree n, urine Morphine/Opi ates: negati ve Not Available [facility] [address], [place], [address], 09/23/2018 15:14:53 09/23/20 18 09/23/2018 drug scree n, urine Oxycodone: positi ve Not Available [facility] [address], [place], [address], 09/23/2018 15:14:53 09/23/20 18 09/23/2018 drug scree n, urine MDMA: negati ve Not Available [facility] [address], [place], [address], 09/23/2018 15:14:53 09/23/20 18 09/23/2018 drug scree n, urine Cocaine: negati ve Not Available [facility] [address], [place], [address], 09/23/2018 15:14:53 09/23/20 18 09/23/2018 drug scree n, urine Methamphetam ine: negati ve Not Available [facility] [address], [place], [address], 09/23/2018 15:14:53 09/27/20 18 09/27/2018 opiat es, quant itati ve, urine abnormal status abnormal Not Available [facility], [address], [address], 10/04/2018 13:35:45 09/27/20 18 09/27/2018 illic its commo nweal th D/L - amphetamine Not Detect ed NG/mL 75 normal Not Available [facility], [address], [address], 10/04/2018 13:35:45 09/27/20 18 09/27/2018 illic its commo nweal th D/L - methamphetam ine Not Detect ed NG/mL 75 normal Not Available [facility], [address], [address], 10/04/2018 13:35:45 09/27/20 18 09/27/2018 illic its commo nweal th THC cooh Not Detect ed NG/mL 45 normal Not Available [facility], [address], [address], 10/04/2018 13:35:45 09/27/20 18 09/27/2018 illic its commo nweal th [id number] (K2/spice) Not Detect ed NG/mL 15 normal Not Available [facility], [address], [address], 10/04/2018 13:35:45 09/27/20 18 09/27/2018 illic its commo nweal th [id number] (K2/spice) Not Detect ed NG/mL 15 normal Not Available [facility], [address], [address], 10/04/2018 13:35:45 09/27/20 18 09/27/2018 illic its commo nweal th cocaine (benzoylecgo nine) Not Detect ed NG/mL 37.5 normal Not Available [facility], [address], [address], 10/04/2018 13:35:45 09/27/20 18 09/27/2018 illic its commo nweal th 6-AARON (heroin) Not Detect ed NG/mL 6 normal Not Available [facility], [address], [address], 10/04/2018 13:35:45 09/27/20 18 09/27/2018 illic its commo nweal th mda (bath salt) Not Detect ed NG/mL 75 normal Not Available [facility], [address], [address], 10/04/2018 13:35:45 09/27/20 18 09/27/2018 illic its commo nweal th mdea (bath salt) Not Detect ed NG/mL 75 normal Not Available [facility], [address], [address], 10/04/2018 13:35:45 09/27/20 18 09/27/2018 illic its commo nweal th MDMA (ecstasy) Not Detect ed NG/mL 75 normal Not Available [facility], [address], [address], 10/04/2018 13:35:45 09/27/20 18 09/27/2018 illic its commo nweal th ritalinic acid Not Detect ed NG/mL 75 normal Not Available [facility], [address], [address], 10/04/2018 13:35:45 09/27/20 18 09/27/2018 illic its commo nweal th pcp Not Detect ed NG/mL 7.5 normal Not Available [facility], [address], [address], 10/04/2018 13:35:45 09/27/20 18 09/27/2018 illic its commo nweal th mdpv (bath salt) Not Detect ed NG/mL 75 normal Presc ribed Medic ation s: Perco cet (Oxyc odone ), Gabap entin (Dave penti n), Zolpi dem (Zolp idem) Not Available [facility], [address], [address], 10/04/2018 13:35:45 09/27/20 18 09/27/2018 drug of abuse panel , urine comment: See Compon ents normal Presc ribed Medic ation s: Perco cet (Oxyc odone ), Gabap entin (Dave penti n), Zolpi dem (Zolp idem) Not Available [facility], [address], [address], 10/04/2018 13:35:44 09/27/20 18 09/27/2018 speci men valid ity testi ng urine creatinine 102 mg/dL 44-355 normal Presc ribed Medic ation s: Perco cet (Oxyc odone ), Gabap entin (Dave penti n), Zolpi dem (Zolp idem) Not Available [facility], [address], [address], 10/04/2018 13:35:44 09/27/20 18 09/27/2018 opioi ds commo nweal th buprenorphin e 44 POSITI VE NG/mL 7.5 abnormal Not Available [facility], [address], [address], 10/04/2018 13:35:43 09/27/20 18 09/27/2018 opioi ds commo nweal th norbuprenorp jamie 148 POSITI VE NG/mL 37.5 abnormal Not Available [facility], [address], [address], 10/04/2018 13:35:43 09/27/20 18 09/27/2018 opioi ds commo nweal th fentanyl Not Detect ed NG/mL 6 normal Not Available [facility], [address], [address], 10/04/2018 13:35:43 09/27/20 18 09/27/2018 opioi ds commo nweal th norfentanyl Not Detect ed NG/mL 6 normal Not Available [facility], [address], [address], 10/04/2018 13:35:43 09/27/20 18 09/27/2018 opioi ds commo nweal th methadone Not Detect ed NG/mL 75 normal Not Available [facility], [address], [address], 10/04/2018 13:35:43 09/27/20 18 09/27/2018 opioi ds commo nweal th codeine Not Detect ed NG/mL 75 normal Not Available [facility], [address], [address], 10/04/2018 13:35:43 09/27/20 18 09/27/2018 opioi ds commo nweal th morphine Not Detect ed NG/mL 75 normal Not Available [facility], [address], [address], 10/04/2018 13:35:43 09/27/20 18 09/27/2018 opioi ds commo nweal th hydrocodone Not Detect ed NG/mL 75 normal Not Available [facility], [address], [address], 10/04/2018 13:35:43 09/27/20 18 09/27/2018 opioi ds commo nweal th norhydrocodo ne Not Detect ed NG/mL 75 normal Not Available [facility], [address], [address], 10/04/2018 13:35:43 09/27/20 18 09/27/2018 opioi ds commo nweal th hydromorphon e Not Detect ed NG/mL 75 normal Not Available [facility], [address], [address], 10/04/2018 13:35:43 09/27/20 18 09/27/2018 opioi ds commo nweal th naloxone Not Detect ed NG/mL 75 normal Not Available [facility], [address], [address], 10/04/2018 13:35:43 09/27/20 18 09/27/2018 opioi ds commo nweal th pentazocine Not Detect ed NG/mL 22.5 normal Not Available [facility], [address], [address], 10/04/2018 13:35:43 09/27/20 18 09/27/2018 opioi ds commo nweal th meperidine Not Detect ed NG/mL 37.5 normal Not Available [facility], [address], [address], 10/04/2018 13:35:43 09/27/20 18 09/27/2018 opioi ds commo nweal th normeperidin e Not Detect ed NG/mL 37.5 normal Not Available [facility], [address], [address], 10/04/2018 13:35:43 09/27/20 18 09/27/2018 opioi ds commo nweal th oxycodone 751 POSITI VE NG/mL 37.5 normal Not Available [facility], [address], [address], 10/04/2018 13:35:43 09/27/20 18 09/27/2018 opioi ds commo nweal th oxymorphone 1247 POSITI VE NG/mL 75 normal Not Available [facility], [address], [address], 10/04/2018 13:35:43 09/27/20 18 09/27/2018 opioi ds commo nweal th propoxyphene Not Detect ed NG/mL 75 normal Not Available [facility], [address], [address], 10/04/2018 13:35:43 09/27/20 18 09/27/2018 opioi ds commo nweal th norpropoxyph arron Not Detect ed NG/mL 75 normal Not Available [facility], [address], [address], 10/04/2018 13:35:43 09/27/20 18 09/27/2018 opioi ds commo nweal th tapentadol Not Detect ed NG/mL 37.5 normal Not Available [facility], [address], [address], 10/04/2018 13:35:43 09/27/20 18 09/27/2018 opioi ds commo nweal th tramadol Not Detect ed NG/mL 75 normal Not Available [facility], [address], [address], 10/04/2018 13:35:43 09/27/20 18 09/27/2018 opioi ds commo nweal th U-ldc-zxegam -cis-tramado l Not Detect ed NG/mL 75 normal Not Available [facility], [address], [address], 10/04/2018 13:35:43 09/27/20 18 09/27/2018 opioi ds commo nweal th noroxycodone POSITI VE>125 0 NG/mL 37.5 normal Not Available [facility], [address], [address], 10/04/2018 13:35:43 09/27/20 18 09/27/2018 opioi ds commo nweal th methadone (EDDP) Not Detect ed NG/mL 75 normal Presc ribed Medic ation s: Perco cet (Oxyc odone ), Gabap entin (Dave penti n), Zolpi dem (Zolp idem) Not Available [facility], [address], [address], 10/04/2018 13:35:43 09/27/20 18 09/27/2018 opiat es, quant itati ve, urine comment: See Compon ents normal Presc ribed Medic ation s: Perco cet (Oxyc odone ), Gabap entin (Dave penti n), Zolpi dem (Zolp idem) Not Available [facility], [address], [address], 10/04/2018 13:35:43 Result Notes None recorded. Problems Name Problem SNOMED Code Status Onset Date Resolution Date Notes Provider Name and Address Organization Details Recorded Time Osteomyelitis 68916364 Active 2017 ABBI Woody Count Includes [facility] 8 11:04:21 Sepsis 35707256 Active 2017 ABBI Woody Count Includes [facility] 8 11:04:28 Chronic pain syndrome 028333985 Active 2017 ABBI Woody Count Includes [facility] 8 11:05:44 Lumbar radiculopathy 682774576 Active 2017 ABBI Woody Count Includes [facility] 8 11:06:06 Scoliosis deformity of spine 796397414 Active 2017 ABBI Woody Count Includes [facility] 8 11:06:20 Problem Notes None recorded. Procedures Surgical History Date Name Laterality Status Provider Name and Address Organization Details Recorded Time Unlisted px abdomen muscskel completed [facility] 04/28/2018 15:13:37 Imaging Results None recorded. Procedure Notes None recorded. Medical Equipment None Reported. Allergies Allergen ID Allergen Name Allergen Category Reaction Reaction Severity Criticality Documentation Date Start Date Code Code System Note Provider Name and Address Organization Details Recorded Time 61477 Substance with sulfonami de structure and antibacte rial mechanism of action (substanc e) medicatio n Not available Not available Not available 04/28/2018 57409 8003 SNOMED ABBI Glover - [facility] 8 15:05:17 94585 morphine medicatio n Not available Not available Not available 04/28/2018 7052 RxNorm ABBI Glover - [facility] 8 15:05:24 Medications Name Sig Start Date Stop Date Status Note LastModified by Organization Details LastModified Time lidocaine-p r cre 04/28 completed Not Available Not Available Not Available Prescriptio n - Prior Authorizati on Request active Not Available Not Available N ot Available Percocet 7.5 mg-325 mg tablet Take 1 tablet 4 times a day by oral route as directed for 30 days. 2017 active FD: 10/21 Not Available Not Available Not Available venlafaxine ER 37.5 mg capsule,ext ended release 24 hr active Not Available Not Available Not Available venlafaxine ER 75 mg capsule,ext ended release 24 hr 04/28 completed Not Available Not Available Not Available gabapentin 600 mg tablet Take 1 tablet 4 times a day by oral route as directed for 30 days. 2017 active Not Available Not Available Not Avai lable trazodone 50 mg tablet active Not Available Not Available Not Available azithromyci n 250 mg tablet 04/28 completed Not Available Not Available Not Available ibuprofen 800 mg tablet active Not Available Not Available Not Available tizanidine 4 mg tablet active Not Available Not Available Not Available fluconazole 150 mg tablet 04/28 completed Not Available Not Available Not Available benzonatate 200 mg capsule 04/28 completed Not Available Not Available Not Available hydrocodone 5 mg-acetamin ophen 325 mg tablet 04/28 completed Not Available Not Available Not Available warfarin 7.5 mg tablet 04/28 completed Not Available Not Available Not Available amlodipine 2.5 mg tablet 04/28 completed Not Available Not Available Not Available hydrocodone 10 mg-acetamin ophen 325 mg tablet 04/28 completed Not Available Not Available Not Available oxycodone-a cetaminophe n 5 mg-325 mg tablet 04/28 completed Not Available Not Available Not Available warfarin 5 mg tablet 04/28 completed Not Available Not Available Not Available metoprolol tartrate 50 mg tablet active Not Available Not Available No t Available nicotine 21 mg/24 hr daily transdermal patch 04/28 completed Not Available Not Available Not Available mupirocin 2 % topical ointment 04/28 completed Not Available Not Available Not Available zolpidem 10 mg tablet active Not Available Not Available No t Available amoxicillin 875 mg-potassiu m clavulanate 125 mg tablet 04/28 completed Not Available Not Available Not Available Nasacort 55 mcg nasal spray aerosol 04/28 completed Not Available Not Available Not Available Vitals Date Recorded Body height Body mass index (BMI) Body weight Oxygen saturation Oxygen saturation in Arterial blood by Pulse oximetry Heart rate Systolic blood pressure Diastolic blood pressure Provider Name and Address Organization Details Last Updated DateTime 8 157.48 cm 26.7 kg/m2 45381.4 9 g 98 % 98 % 100 /min 185 mm[Hg] 146 mm[Hg] Lauren Kraft [facility] 8 15:05:43 Date Recorded Body height Body mass index (BMI) Body weight Oxygen saturation Oxygen saturation in Arterial blood by Pulse oximetry Heart rate Systolic blood pressure Diastolic blood pressure Provider Name and Address Organization Details Last Updated DateTime 8 157.48 cm 26.7 kg/m2 68276.4 9 g 98 % 98 % 58 /min 108 mm[Hg] 94 mm[Hg] Carol Baron [facility] 8 13:25:29 Date Recorded Body height Body mass index (BMI) Body weight Heart rate Oxygen saturation Oxygen saturation in Arterial blood by Pulse oximetry Systolic blood pressure Diastolic blood pressure Provider Name and Address Organization Details Last Updated DateTime 8 157.48 cm 28.7 kg/m2 78922 g 74 /min 97 % 97 % 194 mm[Hg] 134 mm[Hg] Crystal Luis A [facility] 8 13:50:36 Date Recorded Body height Body mass index (BMI) Body weight Heart rate Oxygen saturation Oxygen saturation in Arterial blood by Pulse oximetry Systolic blood pressure Diastolic blood pressure Provider Name and Address Organization Details Last Updated DateTime 8 157.48 cm 28.7 kg/m2 42933 g 83 /min 98 % 98 % 156 mm[Hg] 101 mm[Hg] Crystal Luis A [facility] 8 15:11:14 Social History Question Answer Notes LastModified by Organizat ion Details LastModified Time Tobacco Smoking Status Current Every Day Smoker Lauren cook [facility] 04/28/2018 15:09:35 Which Illicit Or Recreational Drugs Have You Used? None [email or web address] Information not available 04/28/2018 Prescription Drug Abuse No [email or web address] Information not available 04/28/2018 Disability Yes [email or web address] Information no t available 04/28/2018 History Of Sexual Abuse No [email or web address] Information not available 04/28/2018 Marital Status [email or web address] Informatio n not available 04/28/2018 What Was The Date Of Your Most Recent Tobacco Screening? 09/23/2018 Information not available 06/14/2019 How Much Tobacco Do You Smoke? 1 PPD Information not available 04/28/2018 How Many Years Have You Smoked Tobacco? 15 [email or web address] Information not available 04/28/2018 Sex: Unknown Functional Status Question Answer Note LastModified by Organizat ion Details LastModified Time What is your level of alcohol consumption? None [email or web address] Information not available 04/28/2018 What is your occupation? Unemployed [email or web address] Information not available 04/28/2018 What is your exercise level? Occasional Information not available 04/28/2018 Mental Status None recorded. Family History Nothing Reported. Medical History Condition Response Bipolar Disease N Coronary Artery Disease N Gout N Seizure Disorder N Atrial Fibrillation N Thyroid Disease N Head Trauma/Injury N Hernia N Depression N COPD N Anxiety Disorder N Acid Reflux (GERD) N Cancer N Stroke N Skin Disorder N High Cholesterol N Liver Disease N Rheumatoid Arthritis N Headaches N Fibromyalgia N Kidney Disease N Autoimmune Disease N Osteoarthritis N Neurosurgery N DVT N Peptic Ulcer Disease N Anemia N Heart Attack ([place]) N Diabetes N Cardiomyopathy N Bleeding Disorder N CHF N AIDS/HIV N Inflammatory Bowel Disease N Dementia N Asthma N Substance Abuse N Sleep Apnea N Hepatitis N Heart Disease N Pulmonary Embolism N Chronic Low Back Pain Y Hypertension N Osteoporosis N Gynecological HistoryNo gynecological history recorded. Obstetrics History GPAL:G 0 P 0 0 0 0 Past Encounters Encounter ID Performer Location Encounter Start Date Encounter Closed Date Diagnosis/Indication Diagnosis SNOMED-CT Code Diagnosis ICD10 Code Diagnosis Note [id number] Jose Squires MD [facility] [address] [place] [address] 04/28/2018 14:57:57 04/28/2018 15:53:49 Low back pain 106809445 M54.5 Interverte bral disc disorder 89092909 M51.27 Long-term drug therapy 413757538 Z79.899 Lumbar spondylosis 26962 0009 M47.816 [id number] Jose Squires MD [facility] [address] [place] [address] 05/27/2018 13:00:56 05/27/2018 14:07:59 Degeneration of lumbar intervertebral disc 45953542 M51.36 Lumbar spondylosis 29303 0009 M47.896 Low back pain 649793859 M54.5 Chronic pain 64970890 G8 9.29 We discussed the potential risks of long-term opiate use. I advised the patient to be judicious with the narcotic medication , taking it only when pain is severe and taking breaks days whenever possible. Updated David reviewed and found appropriat e. Morphine Equivalent Dose is 45. Long-term drug therapy 016284698 Z79.899 Confirmati on UDS from 04/29/18 reviewed and found appropriat e. Interverte bral disc disorder 70764078 M51.27 [id number] Michel Munguia MD [facility] [address] [place] [address] 07/27/2018 13:43:08 07/27/2018 14:26:46 Degeneration of lumbar intervertebral disc 93805782 M51.36 Lumbar spondylosis 76511 0009 M47.816 We discussed the potential risks of long-term opiate use. I advised the patient to be judicious with the narcotic medication , taking it only when pain is severe and taking breaks days whenever possible. Updated David reviewed and found appropriat e. Morphine Equivalent Dose is 45. ORT is 3. Low back pain 191998725 M54.5 Chronic pain 07854737 G8 9.29 Long-term drug therapy 150207022 Z79.899 The preliminar y urine drug screen is appropriat e for the class of medication s that the patient is being prescribed and based on their stratifica tion I will not send this sample for further quantitati ve LCMS testing. Interverte bral disc disorder 76370041 M51.27 [id number] Michel Munguia MD [facility] [address] [place] [address] 09/23/2018 15:02:24 09/23/2018 15:43:48 Degeneration of lumbar intervertebral disc 89231944 M51.36 Lumbar spondylosis 61524 0009 M47.816 We discussed the potential risks of long-term opiate use. I advised the patient to be judicious with the narcotic medication , taking it only when pain is severe and taking breaks days whenever possible. Zeeshan Hernandez reviewed and found appropriat e. Morphine Equivalent Dose is 45. ORT is 3. Low back pain 966899922 M54.5 Long-term drug therapy 578274181 Z79.899 The preliminar y urine drug screen is positive for an illicit substance which the patient denies using. The sample is being send for quantitati ve, LCMS analysis to confirm the presence of this substance and to rule out possible false positive. The patient denies use of Buprenorph ine. I feel this is a false positive as the patient has not previous history of aberrancy. Chronic pain 28947945 G8 9.29 Interverte bral disc disorder 59382855 M51.27 Health Concerns Section Related Observation LastModified by Organization Detai ls LastModified Time None Recorded Concern Status LastModified by Organization Details LastModified Time None Recorded Advance Directives Directive None Recorded Payers Insurance Date Sequence Insurance Name Policy Number Policy Daugherty Covered Member ID Daugherty Member ID Guarantor Name 09/30/2018 1 [employer] [facility] (MEDICAID HMO) Susan Balbuena [id number] Susan Balbuena Notes Date Note Type Note Provider Name and Address Organization Details Recorded Time 04/28/2018 text/html Low back painReported bypatient.Onset:20 years Location:bilateral paraspinal; midline spine; radiating down the bilateral lower extremities to the buttocks Quality:aching; stabbing; throbbing; sharp; constant Severity:current pain level: 4/10; worst pain level: 8/10 Alleviating Factors:heat; OTC medication; opioids Aggravating Factors:cannot identify Timing:constant Associated Symptoms:no numbness; no swelling; no popping/clicking; no bowel incontinence; no urinary retention; no urinary incontinence; no perineal paresthesia/anesth esia;weakness;numb ness;tingling;pain radiating down leg Prior Imaging:MRI; 09-09-17 MRI LSP Previous Lumbar Surgery:procedure: ; 4 Lumbar- [id number] Previous Injections:lumbar TFESIs; lumbar medial branch nerve blocks; lumbar RFA; % improvement:; 2005 Previous PT:none Medications History:NSAIDs: (Ibuprofen- effective (current)); muscle relaxants: (Flexeril- min effective (past) Baclofen- not effective (past) Zanaflex- effective (current)); neuropathics: (Gabapentin- effective (current) Cymbalta- not effective (past)); opioid pain medications: ([place]- not effective (current) Percocet- effective (past)) Work Related:no Working:no Prior Pain Management:yes; Dr. Xavier [phone] Jose Squires MD [address] [place] [address], [phone] [facility], [facility] 04/28/2018 17:32:41 05/27/2018 text/html Follow-up (meds & injections)Reporte d bypatient.Improvem ent:Pain is the same as compared to last visit. Current Analgesics:Opioids - oxycodone; Other adjunct medications- gabapentin Pain Scores:Current pain- 4/10; Worst pain- 8/10Low back painReported bypatient.Onset:20 years Location:bilateral paraspinal; midline spine; radiating down the bilateral lower extremities to the buttocks Quality:aching; stabbing; throbbing; sharp; constant Severity:current pain level: 4/10; worst pain level: 8/10 Alleviating Factors:heat; OTC medication; opioids Aggravating Factors:cannot identify Timing:constant Associated Symptoms:no numbness; no swelling; no popping/clicking; no bowel incontinence; no urinary retention; no urinary incontinence; no perineal paresthesia/anesth esia;weakness;numb ness;tingling;pain radiating down leg Prior Imaging:MRI; 10-19-17 MRI LSP Previous Lumbar Surgery:procedure: ; 4 Lumbar- [id number] Previous Injections:lumbar TFESIs; lumbar medial branch nerve blocks; lumbar RFA; % improvement:; 2005 Previous PT:none Medications History:NSAIDs: (Ibuprofen- effective (current)); muscle relaxants: (Flexeril- min effective (past) Baclofen- not effective (past) Zanaflex- effective (current)); neuropathics: (Gabapentin- effective (current) Cymbalta- not effective (past)); opioid pain medications: ([place]- not effective (current) Percocet- effective (past)) Work Related:no Working:no Prior Pain Management:yes; Dr. Xavier [phone] [facility] 05/27/2018 19:26:45 07/27/2018 text/html Follow-up (meds & injections)Reporte d bypatient.Improvem ent:Pain is the same as compared to last visit. 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 Adverse Reactions:No nausea.; No vomiting.; No constipation.; No itching.; No sedation.; No respiratory depression.; No sexual dysfunction. Physical Therapy:Completed course in the past- ; Response to therapy- made pain worse Recent Injections:NoneLow back painReported bypatient.Onset:20 years Location:bilateral paraspinal; midline spine; radiating down the bilateral lower extremities to the buttocks Quality:aching; stabbing; throbbing; sharp; constant Severity:current pain level: 5/10; worst pain level: 8/10 Alleviating Factors:heat; OTC medication; opioids Aggravating Factors:cannot identify Timing:constant Associated Symptoms:no numbness; no swelling; no popping/clicking; no bowel incontinence; no urinary retention; no urinary incontinence; no perineal paresthesia/anesth esia;weakness;numb ness;tingling;pain radiating down leg Prior Imaging:MRI; 09-09-17 MRI LSP Previous Lumbar Surgery:procedure: ; 4 Lumbar- [id number] Previous Injections:lumbar TFESIs; lumbar medial branch nerve blocks; lumbar RFA; % improvement:; 2005 Previous PT:none Medications History:NSAIDs: (Ibuprofen- effective (current)); muscle relaxants: (Flexeril- min effective (past) Baclofen- not effective (past) Zanaflex- effective (current)); neuropathics: (Gabapentin- effective (current) Cymbalta- not effective (past)); opioid pain medications: ([place]- not effective (current) Percocet- effective (past)) Work Related:no Working:no Prior Pain Management:yes; Dr. Xavier [phone] [place] Count Includes [facility] 07/28/2018 12:59:15 09/23/2018 text/html Follow-up (meds & injections)Reporte d bypatient.Improvem ent:Pain is the same as compared to last visit. 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 Adverse Reactions:No nausea.; No vomiting.; No constipation.; No itching.; No sedation.; No respiratory depression.; No sexual dysfunction. Physical Therapy:Completed course in the past- ; Response to therapy- made pain worse Recent Injections:NoneLow back painReported bypatient.Onset:20 years Location:bilateral paraspinal; midline spine; radiating down the bilateral lower extremities to the buttocks Quality:aching; stabbing; throbbing; sharp; constant Severity:current pain level: 5/10; worst pain level: 8/10 Alleviating Factors:heat; OTC medication; opioids Aggravating Factors:cannot identify Timing:constant Associated Symptoms:no numbness; no swelling; no popping/clicking; no bowel incontinence; no urinary retention; no urinary incontinence; no perineal paresthesia/anesth esia;weakness;numb ness;tingling;pain radiating down leg Prior Imaging:MRI; 09-09-17 MRI LSP Previous Lumbar Surgery:procedure: ; 4 Lumbar- [id number] Previous Injections:lumbar TFESIs; lumbar medial branch nerve blocks; lumbar RFA; % improvement:; 2005 Previous PT:none Medications History:NSAIDs: (Ibuprofen- effective (current)); muscle relaxants: (Flexeril- min effective (past) Baclofen- not effective (past) Zanaflex- effective (current)); neuropathics: (Gabapentin- effective (current) Cymbalta- not effective (past)); opioid pain medications: ([place]- not effective (current) Percocet- effective (past)) Work Related:no Working:no Prior Pain Management:yes; Dr. Xavier [phone] [place] - Formerly [facility], [facility] 09/25/2018 22:17:58 OBGyn Episode No OBEpisode recorded.
--- OUTSIDE RECORDS SUMMARY | 2025-05-04 11:04 | XMS_ITS | Clinical Summary ---
Author Organization [facility] Address [address] 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 90 Tablet 2 06/30/2022 Active zolpidem (AMBIEN) 10 mg Oral TabletIndicatio ns:Insomnia, persistent Take 1 Tablet by mouth nightly for 90 days. 30 Tablet 2 07/02/2022 Active Active Problems Patient Care Coordination No te Formatting of this note migh t be different from the original. David: [id number] 09/25/21.- 06/30/22- [id number] Drug Screen 07/02/22 Utilization audit completed by Dayanara Earl RN on 07/29/2022. Problem Noted Date Diagnosed Date Nicotine use disorder 06/20/2020 Insomnia, persistent 02/26/2020 Muscle pain, lumbar 12/19/2019 Dyslipidemia 08/07/2019 Overview (08/07/2019): Not on meds. Essential hypertension 04/12/2019 Overview (08/07/2019): BP Readings from Last 3 Encounters: 08/07/19 130/72 04/12/19 124/76 07/19/15 100/82 Taking meds. Well controlled. Denies chest pain and SOB, swelling, dizziness or orthostatics. Stable continue same. Major depressive disorder, recurrent episode, mi ld 04/12/2019 Overview (08/07/2019): Was not able to tolerate cymbalta. Said [...] hx of suicide attempt by overdose in [place]. Currently denies HSI, AVH. Has a lack of motivation and energy and crying spells. Currently is just tired of hurting. In the past has Effexor which helped. Works at [employer] in [place]. High school graduate. 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 Has good social support. Single, . 3 children that live with her. She lives with her parents. Smokes tobacco. Denies other illicit substance use. DDD (degenerative disc disease), lumbar 04/12/20 Overview (08/07/2019): Is due to see spine MD at [...] does not see a pain or family services specialist. Has tried chiropractor, PT, accupuncture. Takes tylenol and ibuprofen daily. Resolved Problems Problem Noted Date Diagnosed Date Resolved Date Alcohol screening 04/12/2019 06/20/2020 Overview (04/12/2019): Does not drink alcohol. Screening for depression 04/12/2019 Overview (04/12/2019): In the past two weeks, how often have you felt down, depressed, or hopeless? None Have you felt little interest or pleasure in doing things? no Immunizations Immunization Administration Dates Next Due Influenza Virus Vaccine Quadrivalant, Flublok Surgical History Surgery Date Site/Laterality Comments LAPAROTOMY X 9 ENDOMETRIAL ABLATION ENDOMETRIAL BIOPSY HYSTERECTOMY COLONOSCOPY UPPER GASTROINTESTINAL ENDOSCOPY BACK SURGERY states hardware in place BACK SURGERY 09/22/2016 - 10/21/2016 BACK SURGERY 02/20/2017 - 03/21/2017 BACK SURGERY 04/22/2017 - 05/21/2017 Medical History Medical History Date Comments Back pain DVT (deep venous thrombosis) (HCC) Osteomyelitis (HCC) 2016 Hepatitis C antibody test positive Family History Medical History Relation Name Comments Breast Cancer Paternal Aunt Colon Cancer Neg Hx Ovarian Cancer Neg Hx Relation Name Status Comments Paternal Aunt Social History Tobacco Use Types Packs/Day Years Used Date Smoking Tobacco: Every Day Cigarettes 1 31.4 Started: 12/20/1993 Smokeless Tobacco: Never Tobacco Cessation:Ready to Q uit: No; Counseling Given: No Alcohol Use Standard Drinks/Week Comments No 0 (1 standard drink = 0.6 oz pur e alcohol) PHQ-2 Answer Date Recorded PHQ-2 Score 1 12/15/2019 Comments No Sex and Gender Information Value Date Recorded Sex Assigned at Not on file Legal Sex Female 9:24 PM EDT Gender Identity Not on file Sexual Orientation Not on file Obstetrics History Last Filed Vital Signs Vital Sign Reading Time Taken Comments Blood Pressure 120/88 07/02/2022 3:14 PM EDT Pulse 100 07/02/2022 3:14 PM EDT Temperature 36.2 C (97.2 F) 07/02/2022 3:14 PM EDT Respiratory Rate 16 07/02/2022 3:14 PM EDT Oxygen Saturation 96% 07/02/2022 3:14 PM EDT Inhaled Oxygen Concentration - - Weight 72.1 kg (159 lb) 07/02/2022 3:14 PM EDT Height 157.5 cm (5' 2 ) 07/02/2022 3:14 PM EDT Body Mass Index 29.08 07/02/2022 3:14 PM EDT Plan of Treatment Health Maintenance Due Date Last Done Comments DTaP/TDaP/Td (1 - Tdap) 1993 Hepatitis B Vaccine (1 of 3 - 19+ 3-dose series) 1993 Pneumococcal Vaccine 50+ (1 of 2 - PCV) 1993 Cervical Cancer Screening 1995 Pap Smear 1995 HPV/Pap Cotest 2004 Breast Cancer Screening 2014 05/27/2011 Cologuard 2019 Colon Cancer Screening 2019 Colonoscopy 2019 FIT 2019 Sigmoidoscopy 2019 Virtual Colonography 2019 Annual Wellness Exam 04/01/2023 04/01/2022 Low Dose Lung Cancer Screening 2024 Zoster (1 of 2) 2024 COVID-19 Vaccine (1 - 2023-2 5 season) 2024 Influenza Vaccine (Season Ended) 2025 09/16/20 20 Meningococcal B Vaccine Aged Out No l onger eligible based on patient's age to complete this topic Goals Goal Patient Goal Type Associated Problems Recent Progress Patient-Stated? Author Blood Pressure < 140/90 Blood Pressure 120/88(2021 3:14 PM EDT) No Akhil He MD Maintain a healthy diet, exercise regularly and maintain an ideal body weight General No Shahrzad Robert LPN Stay Tobacco Free Lifestyle No Shahrzad Robert LPN Procedures Procedure Name Priority Date/Time Associated Diagnosis Comments MM MAMMO DIGITAL DIAGNOSTIC W CAD BILAT Routine 05/27/2011 2:38 PM EDT Breast mass, left from Last 3 Months or Most Recently Relevant to Health Maintenance Results * MM MAMMO DIGITAL DIAGNOSTIC W CAD BILAT (05/27/2011 2:38 PM EDT) Anatomical Region Laterality Modality Breast Bilateral Mammography 05/28/2011 9:06 AM EDT Impressions 05/28/2011 11:10 AM EDT : Incomplete-need additional imaging evaluation ([id number]) ~ RECOMMENDATION: Ultrasound of the left breast, this ultrasound examination was performed on 05-27-11 and will be reported separately. ~ * The patient with a palpable abnormality, unexplained by breast imaging, should be managed on clinical basis by the attending physician. * Breast imaging has a false negative rate of 15%. * The patient was notified by mail of the results of this examination. The mammogram was reviewed by a Radiologist and CAD. Narrative 05/28/2011 11:10 AM EDT Procedure:MM MAMMO DIGITAL DIAGNOSTIC W CAD BILAT ~ Reason for exam: clinical finding. Indicated problem(s): lump or thickening in the left breast. ~ MM MAMMO DIGITAL DIAG CAD BILAT Bilateral CC and MLO view(s) were taken. There are scattered fibroglandular densities. ~ Procedure Note Dalton Aldana R - 05/28/2011 Procedure:MM MAMMO DIGITAL DIAGNOSTIC W CAD BILAT ~ Reason for exam: clinical finding. Indicated problem(s): lump or thickening in the left breast. ~ MM MAMMO DIGITAL DIAG CAD BILAT Bilateral CC and MLO view(s) were taken. There are scattered fibroglandular densities. ~ IMPRESSION: Incomplete-need additional imaging evaluation ([id number]) ~ RECOMMENDATION: Ultrasound of the left breast, this ultrasound examination was performedon 05-27-11 and will be reported separately. ~ * The patient with a palpable abnormality, unexplained by breast imaging, should be managed on clinical basis by the attending physician. * Breast imaging has a false negative rate of 15%. * The patient was notified by mail of the results of this examination. The mammogram was reviewed by a Radiologist and CAD. Trip Card[facility]AM[facility] ORDERABLES Fi nal Result from Last 3 Months or Most Recently Relevant to Health Maintenance Insurance [facility] [place] [address] [facility] [place] [address] [facility] [place] [address] Advance Directives For more information, please contact: [phone] * Full Code (Latest Code Status on File) Date Activated Date Inactivated Comments 12/20/2019 1:42 PM 12/24/2019 9:09 PM
--- NOTE | 2025-05-04 11:29 | XR_ITS ---
FINAL REPORT TECHNIQUE: Chest PA & Lateral CLINICAL HISTORY: Pre op for upcoming ankle sx 05/08/2025. Smokes and has hx of high bp. COMPARISON: 01/29/2025 FINDINGS: 2 views of the chest were performed. The heart size is normal. The mediastinum is within normal limits. There is no acute cardiopulmonary process. There are no pleural effusions. There is no pneumothorax. The bony thorax appears intact. IMPRESSION: No acute cardiopulmonary process. Reviewed, Interpreted and Dictated by Frandy Brady MD Transcribed by Susan Meza Authenticated and [facility]
[2025-05-04 11:38] LABS: Basophils % 0.3 % (0.1-2.0); Eosinophils # 0.2 Kmm3 (0.0-0.4); Eosinophils % 2.5 % (0.1-12.0); Hematocrit 38.4 % (37.0-47.0); Hemoglobin 13.2 g/dL (12.2-16.2); Immature Granulocytes # 0.03 10^3uL; Immature Granulocytes % 0.3 %; Lymphocytes # 2.9 K/mm3 (0.7-4.5); Mean Corpuscular HGB Conc 34.4 g/dL (31.8-35.4); Mean Corpuscular Hemoglobin 30.3 pg (27.0-31.2); Mean Corpuscular Volume 88.3 fl (81-99); Mean Platelet Volume 9.4 fl (7.4-10.4); Monocytes # 0.5 K/mm3 (0.1-1.0); Neutrophils # 5.3 K/mm3 (1.8-7.8); Neutrophils % 58.9 % (37.0-80.0); Nucleated Red Blood Cells # 0 10^3/uL; Nucleated Red Blood Cells % 0 %; Platelet Count 333 K/mm3 (142-424); Red Blood Count 4.35 M/mm3 (4.20-5.40); Red Cell Distribution Width 13.1 % (11.5-17.5); Red Cell Distribution Width-SD 42.1 fL; White Blood Count 8.9 K/mm3 (4.8-10.8)
[2025-05-04 11:47] LABS: Chloride 107 mmol/L (98-107); Sodium 140 mmol/L (136-145)
[2025-05-04 11:48] LABS: Potassium 3.7 mmoL/L (3.5-5.1)
[2025-05-04 11:51] LABS: Anion Gap 6.7 mEq/L (5-15); Blood Urea Nitrogen 17 mg/dl (7-17); Calcium 9.1 mg/dl (8.4-10.2); Carbon Dioxide 30 mmol/L (22.0-30.0); Estimated Glomerular Filt Rate 88 ml/min (>60); GFR (African American) 107 ML/MIN (>60); Glucose 113 mg/dl (74-100)
== END 2025-05-04 23:59 | disposition home or self-care (01) ==
LOC: PREOP 11:01
PROVIDERS: PCP Internal Medicine; Visit Provider Orthopaedic Surgery
DX: Z01.811 Encounter for preprocedural respiratory examination (principal); M25.472 Effusion, left ankle; M13.172 Monoarthritis, not elsewhere classified, left ankle and foot
CPT/HCPCS: 71046; 80048; 85025

== ENCOUNTER 2025-05-08 09:31 | Day surgery (SDC) | payer OTHER, SELFPAY ==
[2025-05-04 12:03] VITALS: BMI 32.0
[2025-05-08] VITALS (10 sets, daily range): BP systolic 137–190; BP diastolic 81–144; PULSE 77–96; RESP 14–17; TEMP 36.1–36.8; O2SAT 93–97
--- NOTE | 2025-05-08 10:51 | EXP.ANES.CKL ---
[facility] Disclaimer: The information contained in this section may have been updated after the patient was seen, as this information can be updated by other users. Medical History HTN (hypertension) Osteomyelitis Surgical History History of hysterectomy History of total knee replacement History of back surgery History of laparotomy Family History Other Family history of cancer Family history of essential hypertension Social History Smoking Status: Current every day smoker tobacco type: cigarettes packs per day: 1 second hand exposure: Yes alcohol intake: former substance use type: former substance user current occupational status: disabled Travel in the last 8 weeks?: None household members: other housing: house current occupation: disabled current occupational exposures/hazards: No caffeine: Yes Have you lived/traveled outside US in past 30 days?: No Contact w/someone who lives/traveled outside US past 30 days?: No Exposure to someone with infectious disease in past 14 days?: No Do you have a fever (greater than 100.4 F or 38 C)?: No Have you tested positive for COVID-19?: No Exposed to someone with COVID-19 in past 14 days?: No Do you have a sore throat?: No Do you have a cough?: No Do you have any weakness?: No Do you have any diarrhea?: No Are you experiencing any unusual bleeding?: No Do you have any muscle aches/pain?: No Do you have any abdominal pain?: No Are you experiencing loss of taste or smell?: No [facility] Anesthesia Checklist Patient Identification Patient Identification: Verbal (Name & ) Structural Data Admitted From: Home Planned Operative Procedure/s: l ankle arthroscopy Consent for Planned Operative Procedure(s) Verified: Yes NPO Status Verified Time NPO: 00:00 Additional verifications Anesthesia Reactions: No Hx Blood Transfusions: No Blood Transfusion Reaction: No Airway Assessment Mallampati Score:: Class II C-Spine Mobility Assessed: Yes TMJ Mobility Assessed: Yes Dentition: Good Dentition Neurological Assessment Level of Consciousness: Awake, Alert and Appropriate Anesthesia Plan Anesthesia Risk discussed: Yes Anesthesia Plan: Verified ASA Class: II Anesthesia Type: General
[2025-05-08] MEDS: SODIUM CHLORIDE IRRIG SOLUTION 9,000 ML 200 ML IR (12:40)
[2025-05-08] MEDS: CEFAZOLIN SODIUM 2 GM in 0.9 % SODIUM CHLORIDE 100 ML IV (12:50)
[2025-05-08] MEDS: BUPIVACAINE 0.25% 30ML VIAL 75 MG (13:00)
[2025-05-08] MEDS: ONDANSETRON 4MG/2ML VIAL 4 MG IV (13:33)
--- NOTE | 2025-05-08 13:36 | P.PNANES_ITS ---
[facility] Anesthesia Record Part I Anesthesia Record I Intake, IV Amount: 600 Hydration: Adequate Estimated blood loss (mL): 0 Urine output (mL): 0 Blood Products used (#): none Blood Pressure: 161/111 SaO2: 93 Pulse Rate: 96 Airway Patency: Patent Respiratory Rate: 14 Temperature: 97.0 F Patient is:: Awake and Stable Stable to PACU at:: 13:32
[2025-05-08] MEDS: HYDROMORPHONE 2MG/ML SYRINGE 0.5 MG IV ×4 (13:42→13:57)
[2025-05-08] MEDS: PROMETHAZINE HCL 25MG/ML 1ML VIAL 6.25 MG IV ×2 (13:49→14:05)
[2025-05-08] MEDS: SODIUM CHLORIDE 0.9% 25ML BAG 25 ML IV ×2 (13:50→14:06)
--- NOTE | 2025-05-08 13:51 | EXP.OP.NOTE ---
Date of procedure: 05/08/25 Pre-op Diagnosis:: Left ankle effusion and possible septic arthritis Post-op Diagnosis:: Same Procedure performed:: Left ankle arthroscopy with synovectomy and debridement intraoperative cultures Surgeon:: Jose Marshall DO Administrative Services Specialist(s):: Pierre NICOLAS Anesthesia: GETA Estimated blood loss (mL): 0 Operative findings:: No gross purulence. No large effusion. Interoperative cultures taken fluid synovium and bone Operative note:: Patient was identified preoperatively. Left ankle marked with yes my initials. Transferred operative suite placed final operating bed general anesthesia was administered airway secured. Left lower extremity prepped and draped in normal sterile fashion. Once prepped and draped final operative timeout performed to identify proper patient procedure and extremity. Everyone involved in the case agreed. There is no counter indications beginning. Did receive preoperative antibiotics. Marking pen was used to hayley planned standard anterior medial anterior lateral ankle arthroscopy portals. Pneumatic tourniquet inflated to 300 mmHg. 11 blade was used to make small david in the skin for the anterior lateral portal hemostat was utilized for making the transition into the tibiotalar joint and the capsule this was replaced with a camera with the camera guide looked medial and made the anterior medial portal made under standard visualization with an 18-gauge needle skin incision and neck was made with 11 blade again followed by a hemostat for safe creation of the anterior medial portal once this was created the fluid inside the ankle joint was drained and taken for culture. There was no large effusion or return of fluid upon entering the ankle capsule initially through the camera. Cameras in place probe was placed and there was inflamed irritated synovium present at the tibiotalar joint. The synovium was then debrided with the sucker shaver and the shavings were collected and sent for cultures. Once synovium was debrided and the ankle joint was thoroughly irrigated attention was then brought to the talus there is an area of the most medial aspect of the talus that had some chondromalacia present. It is unsure if this is degenerative changes or post traumatic or post infective arthropathy. This area had a small grasper Bidor and bone biopsy was obtained placed on a Telfa and sent for pathology. Irrigation continued in the ankle joint there is no evidence of purulence or gross contamination of the ankle all the return fluid appeared to be clear and normal cameras removed skin closed with nylon stitch sterile dressing placed patient waken anesthesia taken recovery stable condition. Condition: stable Disposition: PACU Specimens:: Interoperative cultures x 3 Complications:: None apparent
[2025-05-08] MEDS: MEPERIDINE 25MG/ML 1ML SYRINGE 12.5 MG IV (13:55)
[2025-05-08] MEDS: KETOROLAC 30MG/ML VIAL 30 MG IV (14:07)
--- NOTE | 2025-05-10 10:36 | EXP.ANES.II ---
[facility] Anesthesia Record Part II Anesthesia Record Part II Discharge Time: 14:02 Destination: [facility] PACU nurse assessment reviewed?: Yes Patient Condition:: Good Anesthesia Complications:: None Swallowing reflex intact?: Yes Airway Patency: Patent Cyanosis?: No Blood Pressure: 140/94 SaO2: 94 Respiratory Rate: 17 Pulse Rate: 81 Temperature: 97.5 F Mental Status: Alert & Oriented Pain level:: 0 Nausea and/or vomitting:: None Intake, IV Amount: 1,500 Hydration: Adequate
[2025-05-10 10:37] VITALS: BP 140/94; PULSE 81; RESP 17; TEMP 36.4; O2SAT 94
== END 2025-05-08 15:03 | disposition home or self-care (01) ==
PROVIDERS: PCP Internal Medicine; Visit Provider Orthopaedic Surgery
PROC: (CPT 29897; principal; 2025-05-08 11:00)
DX: M25.472 Effusion, left ankle (principal)
CPT/HCPCS: 29897; 87070; 87205; 88304; 96374; J0665; J0690; J1100; J1171; J1885; J2003; J2175; J2250; J2405; J2550; J2704; J3010

== ENCOUNTER 2025-07-02 21:51 | Observation (INO) | payer OTHER, SELFPAY ==
--- OUTSIDE RECORDS SUMMARY | 2021-08-05 15:00 | XMS_ITS | Encounter Summary ---
Author Organization [place] [address] Care Team Providers Care Plant Mechanic Name Role Phone Mahesh Aranda MD Primary Care Provider Unavailable Reason for Visit * Auth/Cert/Inpt Specialty Diagnoses / Procedures Referred By Chiki t Referred To Contact Diagnoses Pain in left knee Referral ID Status Reason Start Date Expiration Date Visits Re quested Visits Authorized [id number] 1 1 Encounter Details Date Type Department Care Team (Latest Contact Info) Description 08/05/2021 3:00 PM EDT Hospital Encounter [facility] [address] [facility] [address] Rosette Hernandez PA [address] [place] [address] Left without seen Social History Tobacco Use Types Packs/Day Years Used Date Smoking Tobacco: Every Day Cigarettes 1 31.5 Started: 12/20/1993 Smokeless Tobacco: Never Alcohol Use [...] documented as of this encounter Care Teams Plant Mechanic Relationship Specialty Start Date End Date Mahesh Aranda MD PCP - General Internal Medicine 11/08/20 09/29/22 documented as of this encounter
--- NOTE | 2025-07-02 21:47 | ECG_ITS ---
APPROVED REPORT Exam: Resting ECG HR:136 bpm ECG Measurements Heart Rate 136 AXES FL 108 P 45 QRSd 81 QRS -9 QT 330 T 51 QTc 410 Conclusion SINUS TACHYCARDIA WITH SHORT FL INTERVAL NONSPECIFIC ST & T-WAVE ABNORMALITY ABNORMAL RHYTHM ECG UNCONFIRMED REPORT Electronically signed by : ADEOLA ELISE, 07/02/2025 23:40:46
--- NOTE | 2025-07-02 21:54 | CT_ITS ---
PROCEDURE INFORMATION: Exam: CTA Chest With Contrast Exam date and time: 07/02/2025 10:50 PM Age: 50 years old Clinical indication: Sternal or substernal pain; Additional info: Chest pain into shoulder blades TECHNIQUE: Imaging protocol: Computed tomographic angiography of the chest with contrast. Exam focused on the arteries. 3D rendering (Not supervised by radiologist): MIP and/or 3D reconstructed images were created by the technologist. Radiation optimization: All CT scans at this facility use at least one of these dose optimization techniques: automated exposure control; mA and/or kV adjustment per patient size (includes targeted exams where dose is matched to clinical indication); or iterative reconstruction. Contrast material: ISOVUE; Contrast volume: 80 ml; Contrast route: INTRAVENOUS (IV); COMPARISON: CT ANGIO CHEST 03/06/2024 12:07 AM FINDINGS: Pulmonary arteries: Normal. No pulmonary emboli. Aorta: Unremarkable. No aortic aneurysm. No aortic dissection. Lungs: Unremarkable. No consolidation. No masses. Pleural spaces: Unremarkable. No pneumothorax. No pleural effusion. Heart: Unremarkable. No cardiomegaly. No pericardial effusion. Lymph nodes: Unremarkable. No enlarged lymph nodes. Bones/joints: Mild thoracic scoliosis. No vertebral body compression or acute fracture. Soft tissues: Unremarkable. IMPRESSION: No acute abnormality
--- NOTE | 2025-07-02 21:54 | XR_ITS ---
PROCEDURE INFORMATION: Exam: XR Chest Exam date and time: 07/02/2025 10:53 PM Age: 50 years old Clinical indication: Sternal or substernal pain; Additional info: Chest pain TECHNIQUE: Imaging protocol: Radiologic exam of the chest. Views: 1 view. COMPARISON: CT ANGIO CHEST 07/02/2025 10:50 PM FINDINGS: Lungs: Low lung volumes. No consolidation. Pleural spaces: Unremarkable. No pleural effusion. No pneumothorax. Heart/Mediastinum: Unremarkable. No cardiomegaly. Bones/joints: Unremarkable. IMPRESSION: Mild hypoaeration changes
--- NOTE | 2025-07-02 21:56 | CT_ITS ---
PROCEDURE INFORMATION: Exam: CTA Abdomen and Pelvis With Contrast Exam date and time: 07/02/2025 10:50 PM Age: 50 years old Clinical indication: Shortness of breath; Additional info: Vomiting, HTN TECHNIQUE: Imaging protocol: Computed tomographic angiography of the abdomen and pelvis with contrast. Exam focused on the arteries. 3D rendering (Not supervised by radiologist): MIP and/or 3D reconstructed images were created by the technologist. Radiation optimization: All CT scans at this facility use at least one of these dose optimization techniques: automated exposure control; mA and/or kV adjustment per patient size (includes targeted exams where dose is matched to clinical indication); or iterative reconstruction. Contrast material: ISOVUE; Contrast volume: 80 ml; Contrast route: INTRAVENOUS (IV); COMPARISON: CR XR ABDOMEN MIN 2V 12/26/2024 2:21 PM FINDINGS: Aorta: Mild atherosclerotic calcification throughout the aorta. No aneurysm or dissection. Celiac trunk and mesenteric arteries: No occlusion or significant stenosis. Renal arteries: No occlusion or significant stenosis. Right iliac arteries: Fusiform dilation of the right common iliac artery measuring 1.8 cm. Right internal and external iliac arteries appear unremarkable. Left iliac arteries: Fusiform dilation of the left common iliac artery measuring maximum diameter of 2 cm. Left internal and external iliac arteries appear unremarkable Liver: No mass. Gallbladder and biliary ducts: Mildly distended gallbladder. Gallbladder otherwise unremarkable. No biliary ductal dilation. Pancreas: Unremarkable. No mass. No ductal dilation. Spleen: Unremarkable. No splenomegaly. Adrenal glands: Unremarkable. No mass. Kidneys and ureters: 12 mm simple cortical cyst upper pole right kidney. Left kidney appears normal. No hydronephrosis. Stomach and bowel: Unremarkable. No obstruction. No mucosal thickening. Appendix: No evidence of appendicitis. Intraperitoneal space: Unremarkable. No free air. No significant fluid collection. Lymph nodes: Unremarkable. No enlarged lymph nodes. Urinary bladder: Unremarkable. No mass. Reproductive: Uterus is absent. No adnexal abnormality. Bones/joints: Orthopedic and osseous fusion throughout the lumbar spine. No vertebral body compression. No acute fracture. Soft tissues: Unremarkable. IMPRESSION: No acute abnormality. Incidental chronic findings as noted.
--- NOTE | 2025-07-02 21:59 | [facility].EDGENADL ---
Discharge Plan Disposition Patient Disposition: Admitted Clinical Impressions Clinical Impression: Intractable nausea and vomiting, Chest pain Discharge ED Provider: Suad Staton General Adult HPI <DO Toñito Villalta Last Filed: 07/03/25 00:11> General Chief complaint: Chest Pain Stated complaint: chest pain Time Seen by Provider: 07/02/25 21:54 History of Present Illness HPI narrative: Patient is a 50-year-old female with no significant past medical history who presented to the emergency department with chest pain. Patient states that her chest pain started a few hours ago. It is left-sided radiates into the left neck as well as into her back between her shoulder blades. Patient states that her pain is currently a 6 out of 10 pressure-like in nature. Patient denies any pleuritic type pain, pain is not worse with anything in particular. Patient reports some nausea no vomiting. Patient denies any abdominal pain. Patient denies any recent fevers. Patient denies any other upper respiratory symptoms. Patient took amlodipine for her blood pressure prior to arrival but denies taking other medications prior to arrival. Reports high blood pressure but no other daily medications. Patient denies any recent surgeries. Patient denies any history of blood clots. Related Data Previous Rx's ?Medication ?Instructions ?Recorded ondansetron 4 mg disintegrating 4 mg PO Q8H PRN nausea and 12/20/24 tablet vomiting #30 tabs lactulose 10 gram/15 mL oral 10 g (15 mL) PO BID PRN 02/13/25 solution constipation #900 mL hydrocodone 5 mg-acetaminophen 325 1 tab PO Q6H PRN post op pain #20 05/08/25 mg tablet tabs amlodipine 5 mg tablet 5 mg PO DAILY #90 tabs 05/17/25 gabapentin 600 mg tablet See Rx Instructions .Route 06/15/25 .COMPLEX #90 tabs tizanidine 4 mg tablet See Rx Instructions .Route 06/15/25 .COMPLEX #60 tabs zolpidem 10 mg tablet 10 mg PO HS PRN SLEEP #30 tabs 06/15/25 Allergies Allergy/AdvReac Type Severity Reaction Status Date / Time albuterol AdvReac Palpitation Verified 05/24/25 10:49 s PFSH <DO Toñito Villalta Last Filed: 07/03/25 00:11> PFS Disclaimer: The information contained in this section may have been updated after the patient was seen, as this information can be updated by other users. Medical History (Updated 07/03/25 @ 02:29 by Liban Pedro MD) Methadone dependence HTN (hypertension) Osteomyelitis Surgical History History of hysterectomy History of total knee replacement History of back surgery History of laparotomy Family History Other Family history of cancer Family history of essential hypertension Social History Smoking Status: Current every day smoker tobacco type: cigarettes packs per day: 1 second hand exposure: Yes alcohol intake: former substance use type: former substance user current occupational status: disabled Travel in the last 8 weeks?: None household members: other housing: house current occupation: disabled current occupational exposures/hazards: No caffeine: Yes Have you lived/traveled outside [place] in past 30 days?: No Contact w/someone who lives/traveled outside US past 30 days?: No Exposure to someone with infectious disease in past 14 days?: No Do you have a fever (greater than 100.4 F or 38 C)?: No Have you tested positive for COVID-19?: No Exposed to someone with COVID-19 in past 14 days?: No Do you have a sore throat?: No Do you have a cough?: No Do you have any weakness?: No Do you have any diarrhea?: No Are you experiencing any unusual bleeding?: No Do you have any muscle aches/pain?: No Do you have any abdominal pain?: No Are you experiencing loss of taste or smell?: No Other Medical History Have you received the Flu Vaccine for this season: No Have you received the Pneumonia Vaccine: No <Suad Staton DO - Last Filed: 07/03/25 00:11> ROS Obtained: Yes All systems reviewed & no additional complaints except as documented and Yes Systems reviewed as appropriate & no additional complaints except as documented Physical Exam <Suad Staton DO - Last Filed: 07/03/25 00:11> General General appearance: alert, in no apparent distress and other (Diaphoretic) Head Head exam: atraumatic, normocephalic and normal inspection Eye Eye exam: Present normal appearance, PERRL and EOMI; Absent scleral icterus ENT ENT exam: Present normal exam and normal external ear exam Neck Neck exam: Present normal inspection and full ROM Chest Chest inspection: Present normal inspection and symmetric chest wall rise Respiratory Respiratory exam: Present normal lung sounds bilaterally; Absent respiratory distress or wheezes Cardiovascular Cardiovascular exam: Present regular rate, normal rhythm and normal heart sounds Abdominal Exam Abdominal exam: Present soft and distention; Absent tenderness, guarding or rebound Extremities Exam Extremities exam: Present normal inspection and full ROM Back Exam Back exam: Present normal inspection and full ROM Neurological Exam Neurological exam: Present alert and oriented X3 Psychiatric Psychiatric exam: Present normal affect and normal mood Skin Skin exam: Present warm and dry Medical Decision Making <Suad Staton, DO - Last Filed: 07/03/25 00:11> Medical Records Medical records reviewed: Yes I reviewed the patient's medical records. Screening: Per USPSTF and CDC recommendations, given the prevalence of disease in our region, it is our hospital?s policy to screen for HIV and viral Hepatitis for all patients aged 18 and over and those with ongoing risk factors. David Inquiry Pt receiving controlled substance: No Vital Signs: 07/02/25 22:13 07/03/25 01:28 Temperature 99.3 F 98.4 F Temperature Source Oral Oral Pulse Rate 99 H Pulse Rate [Right] 130 H Respiratory Rate 20 16 Blood Pressure 173/101 H Blood Pressure [Right Arm] 175/119 H Blood Pressure Mean [Right Arm] 137 Blood Pressure Source Automatic Cuff Blood Pressure Source [Right Arm] Automatic Cuff Blood Pressure Position Sitting Blood Pressure Position [Right Arm] Supine 02 Sat by Pulse Oximetry 99 Oxygen Delivery Method Room Air Room Air Lab Data Lab results reviewed: Yes I reviewed the patient's lab results. Lab Results 07/02/25 21:50: WBC 14.0 H, RBC 5.57 H, Hgb 16.6 H, Hct 47.7 H, MCV 85.6, MCH 29.8, MCHC 34.8, RDW 12.6, Plt Count 475 H, MPV 9.5, Neut % (Auto) 79.7, Lymph % (Auto) 15.8, [place] % (Auto) 4.1, Eos % (Auto) 0.1, Baso % (Auto) 0.1, Neut # (Auto) 11.2 H, Lymph # (Auto) 2.2, [place] # (Auto) 0.6, Eos # (Auto) 0.0, Baso # (Auto) 0.0, PT 11.5, INR 1.04, VBG pH 7.41, VBG pCO2 45.0, VBG pO2 43.0 H, VBG HCO3 27.6, VBG Total CO2 29.0 H, VBG O2 Saturation 79.8 H, VBG Base Excess 2.9 H, VBG Lactic Acid 2.7 H, Sodium 138, Potassium 4.0, Chloride 96 L, Carbon Dioxide 30, Anion Gap 16.0 H, BUN 20 H, Creatinine 0.60, Estimated GFR 105, Est GFR ( Amer) 128, Glucose 140 H, Calcium 10.6 H, Magnesium 1.9, Total Bilirubin 0.8, AST 31, ALT 26, Alkaline Phosphatase 191 H, Troponin I < 0.01, Total Protein 9.8 H D, Albumin 5.2 H, Globulin 4.6 H, Albumin/Globulin Ratio 1.1, Lipase 99, Serum HCG, Qual Negative, HCV Ab JAIME w/Rflx PCR Qn Reactive, HIV Ag/Ab Combo Qual Negative 07/02/25 23:50: Troponin I < 0.01 07/02/25 21:50 07/02/25 21:50 Orders (Tests/Meds): ED MEDICATIONS Generic Name Dose Route Start Last Admin Trade Name Freq PRN Reason Stop Dose Admin Buprenorphine HCl 8 mg 07/03/25 01:55 Buprenorphine 8mg Odt SL 08/02/25 08:59 BID PRN Opioid Reversal Lactated Ringer's 1,000 mls @ 125 mls/hr 07/03/25 02:00 Lactated Ringer's 1000 Ml Bag IV 08/02/25 01:59 .Q8H [place] Ketorolac Tromethamine 15 mg 07/03/25 01:43 Ketorolac 30mg/Ml Vial IV 07/08/25 01:42 Q4HP PRN Moderate Pain (4-6) Metoclopramide HCl 5 mg 07/03/25 01:10 07/03/25 01:14 Metoclopramide Hcl 10mg/2ml Vial IVP 07/03/25 01:11 5 mg ONCE ONE Administration Metoclopramide HCl 5 mg 07/03/25 01:45 Metoclopramide Hcl 10mg/2ml Vial IVP 08/02/25 01:44 Q6H [place] Miscellaneous 1 each 07/03/25 02:00 Pharmacy Consult Request NOTAPPLIC 07/03/25 02:01 CONSULT PHARMACY ONE Ondansetron HCl 4 mg 07/03/25 01:43 Ondansetron 4mg/2ml Vial IV 08/02/25 01:42 Q6HP PRN Nausea Promethazine HCl 12.5 mg 07/03/25 01:43 Promethazine Hcl 25mg/Ml 1ml Vial IV 08/02/25 01:42 Q6HP PRN Nausea And Vomiting Sodium Chloride 25 ml 07/03/25 01:43 Sodium Chloride 0.9% 25ml Bag IV 08/02/25 01:42 NEEDED PRN for Use with IV Promethazine Discontinued Medications Generic Name Dose Route Start Last Admin Trade Name Freq PRN Reason Stop Dose Admin Aspirin 325 mg 07/02/25 21:54 07/03/25 01:21 Aspirin 325mg Tablet PO 07/02/25 21:55 Not Given ONCE ONE Dexamethasone Sodium Phosphate 10 mg 07/02/25 23:05 07/02/25 23:12 Dexamethasone 4mg/Ml 1ml Vial IV 07/02/25 23:06 Not Given ONCE ONE Diphenhydramine HCl 25 mg 07/02/25 23:01 07/02/25 23:07 Diphenhydramine 50mg/Ml Vial IV 07/02/25 23:02 25 mg ONCE ONE Administration Droperidol 2.5 mg 07/02/25 23:01 07/02/25 23:07 Droperidol 5mg/2ml Vial IV 07/02/25 23:02 2.5 mg ONCE ONE Administration Sodium Chloride 1,000 mls @ 500 mls/hr 07/02/25 22:00 07/03/25 00:31 Sod Chlor 0.9% 1000ml Bag IV 08/01/25 21:59 Not Given .Q2H [place] Iopamidol 80 ml 07/02/25 23:03 07/02/25 23:06 Iopamidol-370 (76%);100ml Bottle IV 07/02/25 23:04 80 ml ONCE ONE Administration Morphine Sulfate 4 mg 07/02/25 22:12 07/02/25 22:19 Morphine 4mg/Ml Syringe IV 07/02/25 22:13 4 mg ONCE ONE Administration Ondansetron HCl 4 mg 07/02/25 21:56 07/02/25 22:00 Ondansetron 4mg/2ml Vial IV 07/02/25 21:57 4 mg ONCE ONE Administration Prochlorperazine Edisylate 10 mg 07/02/25 22:15 07/02/25 22:19 Prochlorperazine 10mg/2ml Vial IV 07/02/25 22:16 10 mg ONCE ONE Administration Promethazine HCl 25 mg 07/03/25 01:01 07/03/25 01:09 Promethazine Hcl 25mg/Ml 1ml Vial IV 07/03/25 01:02 25 mg ONCE ONE Administration Sodium Chloride 50 ml 07/02/25 23:03 07/02/25 23:07 0.9 % Sodium Chloride 50 Ml Vial IV 07/02/25 23:04 50 ml ONCE ONE Administration Sodium Chloride 10 ml 07/02/25 23:03 07/02/25 23:06 Sodium Chloride 0.9% 10ml Syr (Rad Only) IV 07/02/25 23:04 10 ml ONCE ONE Administration Sodium Chloride 25 ml 07/03/25 01:01 Sodium Chloride 0.9% 25ml Bag IV 07/03/25 01:02 ONCE ONE ORDERS Category Date Time Status CT angio abdomen pelvis Stat Cat Scan 07/02/25 21:56 Completed CTA Chest [CT angio chest - dissection] Stat Cat Scan 07/02/25 21:54 Completed CXR --portable [XR chest portable] Stat Exams 07/02/25 21:54 Completed CBC w/Auto Diff [Complete Blood Count Auto Diff] Stat Lab 07/02/25 21:50 Completed CMP [Comprehensive Metabolic Panel] Stat Lab 07/02/25 21:50 Completed HCG Qualitative, Serum Stat Lab 07/02/25 21:50 Completed HCV RNA PCR, Quant Stat Lab 07/02/25 21:50 Received HIV Combo Stat Lab 07/02/25 21:50 Completed Hepatitis C Ab Qual. W/ RFX Stat Lab 07/02/25 21:50 Completed Lipase Stat Lab 07/02/25 21:50 Completed MAG [Magnesium] Stat Lab 07/02/25 21:50 Completed PT INR [Prothrombin Time INR] Stat Lab 07/02/25 21:50 Completed Trop I [Troponin I] Stat Lab 07/02/25 21:50 Completed Troponin I Q3H Lab 07/03/25 01:00 Completed Troponin I Q3H Lab 07/03/25 04:00 Ordered VBG [Venous Blood Gas] Stat RT 07/02/25 21:50 Completed Medical Decision Narrative: Patient is an otherwise healthy 50-year-old female who presented to the emergency department with chest pain. On arrival, patient was hypertensive, afebrile vital signs were otherwise unremarkable. Differential includes but not limited to: ACS/OK, arrhythmia, pneumonia, pulmonary embolism, aortic dissection, amongst others. Patient's initial EKG was reviewed and interpreted by myself and showed sinus tachycardia at a rate of [address] or T wave changes concerning for ischemia. Patient's labs were reviewed and interpreted by myself: Patient CBC showed mild leukocytosis, stable hemoglobin. CMP was unremarkable. VBG was unremarkable. test was negative. Initial troponin less than 0.01. Lipase normal. Chest x-ray was reviewed and interpreted by myself and showed no acute for consolidation, pneumothorax, pleural effusion or other acute cardiopulmonary process. Patient CTA chest and abdomen showed no acute pathology. Patient had significant vomiting in the emergency department, patient was given IV fluids, Zofran, Compazine as well as droperidol. Patient was signed out to the oncoming provider Liban Pedro pending second troponin and further symptom control. <Liban Pedro MD - Last Filed: 07/03/25 02:29> Vital Signs: 07/02/25 22:13 07/03/25 01:28 Temperature 99.3 F 98.4 F Temperature Source Oral Oral Pulse Rate 99 H Pulse Rate [Right] 130 H Respiratory Rate 20 16 Blood Pressure 173/101 H Blood Pressure [Right Arm] 175/119 H Blood Pressure Mean [Right Arm] 137 Blood Pressure Source Automatic Cuff Blood Pressure Source [Right Arm] Automatic Cuff Blood Pressure Position Sitting Blood Pressure Position [Right Arm] Supine 02 Sat by Pulse Oximetry 99 Oxygen Delivery Method Room Air Room Air Lab Data Lab Results 07/02/25 21:50: WBC 14.0 H, RBC 5.57 H, Hgb 16.6 H, Hct 47.7 H, MCV 85.6, MCH 29.8, MCHC 34.8, RDW 12.6, Plt Count 475 H, MPV 9.5, Neut % (Auto) 79.7, Lymph % (Auto) 15.8, [place] % (Auto) 4.1, Eos % (Auto) 0.1, Baso % (Auto) 0.1, Neut # (Auto) 11.2 H, Lymph # (Auto) 2.2, [place] # (Auto) 0.6, Eos # (Auto) 0.0, Baso # (Auto) 0.0, PT 11.5, INR 1.04, VBG pH 7.41, VBG pCO2 45.0, VBG pO2 43.0 H, VBG HCO3 27.6, VBG Total CO2 29.0 H, VBG O2 Saturation 79.8 H, VBG Base Excess 2.9 H, VBG Lactic Acid 2.7 H, Sodium 138, Potassium 4.0, Chloride 96 L, Carbon Dioxide 30, Anion Gap 16.0 H, BUN 20 H, Creatinine 0.60, Estimated GFR 105, Est GFR ( Amer) 128, Glucose 140 H, Calcium 10.6 H, Magnesium 1.9, Total Bilirubin 0.8, AST 31, ALT 26, Alkaline Phosphatase 191 H, Troponin I < 0.01, Total Protein 9.8 H D, Albumin 5.2 H, Globulin 4.6 H, Albumin/Globulin Ratio 1.1, Lipase 99, Serum HCG, Qual Negative, HCV Ab JAIME w/Rflx PCR Qn Reactive, HIV Ag/Ab Combo Qual Negative 07/02/25 23:50: Troponin I < 0.01 Orders (Tests/Meds): ED MEDICATIONS Generic Name Dose Route Start Last Admin Trade Name Freq PRN Reason Stop Dose Admin Buprenorphine HCl 8 mg 07/03/25 01:55 Buprenorphine 8mg Odt SL 08/02/25 08:59 BID PRN Opioid Reversal Lactated Ringer's 1,000 mls @ 125 mls/hr 07/03/25 02:00 Lactated Ringer's 1000 Ml Bag IV 08/02/25 01:59 .Q8H [place] Ketorolac Tromethamine 15 mg 07/03/25 01:43 Ketorolac 30mg/Ml Vial IV 07/08/25 01:42 Q4HP PRN Moderate Pain (4-6) Metoclopramide HCl 5 mg 07/03/25 01:10 07/03/25 01:14 Metoclopramide Hcl 10mg/2ml Vial IVP 07/03/25 01:11 5 mg ONCE ONE Administration Metoclopramide HCl 5 mg 07/03/25 01:45 Metoclopramide Hcl 10mg/2ml Vial IVP 08/02/25 01:44 Q6H [place] Miscellaneous 1 each 07/03/25 02:00 Pharmacy Consult Request NOTAPPLIC 07/03/25 02:01 CONSULT PHARMACY ONE Ondansetron HCl 4 mg 07/03/25 01:43 Ondansetron 4mg/2ml Vial IV 08/02/25 01:42 Q6HP PRN Nausea Promethazine HCl 12.5 mg 07/03/25 01:43 Promethazine Hcl 25mg/Ml 1ml Vial IV 08/02/25 01:42 Q6HP PRN Nausea And Vomiting Sodium Chloride 25 ml 07/03/25 01:43 Sodium Chloride 0.9% 25ml Bag IV 08/02/25 01:42 NEEDED PRN for Use with IV Promethazine Discontinued Medications Generic Name Dose Route Start Last Admin Trade Name Freq PRN Reason Stop Dose Admin Aspirin 325 mg 07/02/25 21:54 07/03/25 01:21 Aspirin 325mg Tablet PO 07/02/25 21:55 Not Given ONCE ONE Dexamethasone Sodium Phosphate 10 mg 07/02/25 23:05 07/02/25 23:12 Dexamethasone 4mg/Ml 1ml Vial IV 07/02/25 23:06 Not Given ONCE ONE Diphenhydramine HCl 25 mg 07/02/25 23:01 07/02/25 23:07 Diphenhydramine 50mg/Ml Vial IV 07/02/25 23:02 25 mg ONCE ONE Administration Droperidol 2.5 mg 07/02/25 23:01 07/02/25 23:07 Droperidol 5mg/2ml Vial IV 07/02/25 23:02 2.5 mg ONCE ONE Administration Sodium Chloride 1,000 mls @ 500 mls/hr 07/02/25 22:00 07/03/25 00:31 Sod Chlor 0.9% 1000ml Bag IV 08/01/25 21:59 Not Given .Q2H [place] Iopamidol 80 ml 07/02/25 23:03 07/02/25 23:06 Iopamidol-370 (76%);100ml Bottle IV 07/02/25 23:04 80 ml ONCE ONE Administration Morphine Sulfate 4 mg 07/02/25 22:12 07/02/25 22:19 Morphine 4mg/Ml Syringe IV 07/02/25 22:13 4 mg ONCE ONE Administration Ondansetron HCl 4 mg 07/02/25 21:56 07/02/25 22:00 Ondansetron 4mg/2ml Vial IV 07/02/25 21:57 4 mg ONCE ONE Administration Prochlorperazine Edisylate 10 mg 07/02/25 22:15 07/02/25 22:19 Prochlorperazine 10mg/2ml Vial IV 07/02/25 22:16 10 mg ONCE ONE Administration Promethazine HCl 25 mg 07/03/25 01:01 07/03/25 01:09 Promethazine Hcl 25mg/Ml 1ml Vial IV 07/03/25 01:02 25 mg ONCE ONE Administration Sodium Chloride 50 ml 07/02/25 23:03 07/02/25 23:07 0.9 % Sodium Chloride 50 Ml Vial IV 07/02/25 23:04 50 ml ONCE ONE Administration Sodium Chloride 10 ml 07/02/25 23:03 07/02/25 23:06 Sodium Chloride 0.9% 10ml Syr (Rad Only) IV 07/02/25 23:04 10 ml ONCE ONE Administration Sodium Chloride 25 ml 07/03/25 01:01 Sodium Chloride 0.9% 25ml Bag IV 07/03/25 01:02 ONCE ONE ORDERS Category Date Time Status CT angio abdomen pelvis Stat Cat Scan 07/02/25 21:56 Completed CTA Chest [CT angio chest - dissection] Stat Cat Scan 07/02/25 21:54 Completed CXR --portable [XR chest portable] Stat Exams 07/02/25 21:54 Completed CBC w/Auto Diff [Complete Blood Count Auto Diff] Stat Lab 07/02/25 21:50 Completed CMP [Comprehensive Metabolic Panel] Stat Lab 07/02/25 21:50 Completed HCG Qualitative, Serum Stat Lab 07/02/25 21:50 Completed HCV RNA PCR, Quant Stat Lab 07/02/25 21:50 Received HIV Combo Stat Lab 07/02/25 21:50 Completed Hepatitis C Ab Qual. W/ RFX Stat Lab 07/02/25 21:50 Completed Lipase Stat Lab 07/02/25 21:50 Completed MAG [Magnesium] Stat Lab 07/02/25 21:50 Completed PT INR [Prothrombin Time INR] Stat Lab 07/02/25 21:50 Completed Trop I [Troponin I] Stat Lab 07/02/25 21:50 Completed Troponin I Q3H Lab 07/03/25 01:00 Completed Troponin I Q3H Lab 07/03/25 04:00 Ordered VBG [Venous Blood Gas] Stat RT 07/02/25 21:50 Completed Medical Decision Narrative: Patient is an otherwise healthy 50-year-old female who presented to the emergency department with chest pain. On arrival, patient was hypertensive, afebrile vital signs were otherwise unremarkable. Differential includes but not limited to: ACS/OK, arrhythmia, pneumonia, pulmonary embolism, aortic dissection, amongst others. Patient's initial EKG was reviewed and interpreted by myself and showed sinus tachycardia at a rate of [address] or T wave changes concerning for ischemia. Patient's labs were reviewed and interpreted by myself: Patient CBC showed mild leukocytosis, stable hemoglobin. CMP was unremarkable. VBG was unremarkable. test was negative. Initial troponin less than 0.01. Lipase normal. Chest x-ray was reviewed and interpreted by myself and showed no acute for consolidation, pneumothorax, pleural effusion or other acute cardiopulmonary process. Patient CTA chest and abdomen showed no acute pathology. Patient had significant vomiting in the emergency department, patient was given IV fluids, Zofran, Compazine as well as droperidol. Patient was signed out to the oncoming provider Liban Pedro pending second troponin and further symptom control. Mayela BOWMAN: I assumed care of the patient at the time of handoff from the prior provider. Patient continued to dry heave throughout ED stay despite interventions. She was given IV Phenergan and Reglan. Given intractable nausea vomiting, as well as persistent hypertension and chest pain, I think patient would benefit from admission for further evaluation and continued management. Interactive discussion was had with the hospitalist on-call for admission. Critical Care <Suad Staton, DO - Last Filed: 07/03/25 00:11> Critical Care Time Critical Care Time: No
[2025-07-02] MEDS: ONDANSETRON 4MG/2ML VIAL 4 MG IV (22:00)
[2025-07-02] MEDS: 0.9 % SODIUM CHLORIDE 1000ML 1,000 ML 500 ML IV (22:00)
[2025-07-02 22:05] LABS: Hematocrit 47.7 % (37.0-47.0); Hemoglobin 16.6 g/dL (12.2-16.2); Immature Granulocytes % 0.2 %; Mean Corpuscular HGB Conc 34.8 g/dL (31.8-35.4); Mean Corpuscular Hemoglobin 29.8 pg (27.0-31.2); Mean Corpuscular Volume 85.6 fl (81-99); Nucleated Red Blood Cells % 0 %; Platelet Count 475 K/mm3 (142-424); Red Blood Count 5.57 M/mm3 (4.20-5.40); Red Cell Distribution Width-SD 38.9 fL; White Blood Count 14.0 K/mm3 (4.8-10.8)
[2025-07-02 22:07] LABS: VBG HCO3 27.6 mmol/L (23-30); VBG PCO2 45.0 mmol/L (35-51); VBG PH 7.41 mmol/L (7.31-7.41); VBG PO2 43.0 mmol/L (28-40)
--- OUTSIDE RECORDS SUMMARY | 2025-07-02 22:08 | XMS_ITS | Clinical Summary ---
Author Organization [facility] Address [address] [facility] [address] [place] [id number] Phone Care Team Providers Care Biological Inspector Name Role Phone Justin ESPINO, Christina Bang Unavailable Conditions or Problems Problem Name Problem Code Onset Date Status Entry Date Provider Comment Standard Description Annotate Neutropenia, drug-induced 28176312 (SNOMED CT) 11/29 Active 11/29 Barbara Chaudhari RN Drug-induced neutropenia Osteomyelitis of vertebra, lumbar region M46.26 (ICD-10-CM ) Active Kimmy Jacques Osteomyelitis of vertebra, lumbar region Lumbar region, infected discitis, 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.36 (ICD-10-CM ) Active Kimmy Jacques Infection of intervertebral disc (pyogenic), lumbar region Pseudomonas infection 69774045 (SNOMED CT) Active Kimmy Hanna Bacterial infection caused by Pseudomonas Benign Essential Hypertension 4250231 (SNOMED CT) Active Kimmy Jacques Benign essential [...] by mouth twice a day METOPROLOL TARTRATE 20143067789 Alyx S ZOFRAN 4 MG ORAL TABLET Take one by mouth 3 times a day when necessary severe nausea and vomiting ONDANSETRON HCL 74325178936 Singh Polk MD EFFEXOR XR 37.5 MG [id number] Take one by mouth daily VENLAFAXINE HCL 97471297233 Singh Polk MD LEVAQUIN 750 MG ORAL TABLET by mouth daily LEVOFLOXACIN 15991964193 Singh Polk MD DIFLUCAN 150 MG TABS Take one pill daily. FLUCONAZOLE [id number] Shell K LEVAQUIN 750 MG ORAL TABLET by mouth daily 02/20 LEVOFLOXACIN 93127274220 Singh Polk MD DIFLUCAN 150 MG TABS Take one pill daily. 05/30 FLUCONAZOLE [id number] Singh Polk MD CEFEPIME HCL 2 GM INJECTION SOLUTION RECONSTITUTED 2gm [facility] 12[facility]27 CEFEPIME HCL [id number] Barbara Chaudhari RN DIFLUCAN 150 MG TABS Take one pill daily. 12/19 FLUCONAZOLE 25685428646 Barbara Chaudhari RN NYSTATIN 683755 UNIT/ML SUSP 5ml swish and spit three tmes per days as needed NYSTATIN 73124564480 Singh Polk MD MERREM 1 GM INTRAVENOUS SOLUTION RECONSTITUTED [id number] HH 12/19 MEROPENEM 83749893739 Barbara Chaudhari RN LEVAQUIN 750 MG ORAL TABLET by mouth daily 02/20 LEVOFLOXACIN 37020844803 Singh Polk MD DIFLUCAN 150 MG TABS Take one pill daily. 05/30 FLUCONAZOLE 01959889540 Singh Polk MD MERREM 1 GM INTRAVENOUS SOLUTION RECONSTITUTED [id number] HH 12/19 MEROPENEM 81224723573 Nel H LEVAQUIN 750 MG ORAL TABLET by mouth daily 02/20 LEVOFLOXACIN 04303993800 Singh Polk MD DIFLUCAN 150 MG TABS Take one pill daily. 05/30 FLUCONAZOLE [id number] Singh Polk MD FENTANYL 25 MCG/HR PT72 apply patch to skin every 3 days FENTANYL [id number] Singh Polk MD NEURONTIN 600 MG TABS by mouth three times a day GABAPENTIN 31303756131 James K LACTINEX PACK 2 tabs by mouth twice daily LACTOBACILLUS 42479915951 James K COLACE 100 MG CAPS by mouth daily DOCUSATE SODIUM 31870824746 James K GABAPENTIN 300 MG CAPS 2 tabs by mouth three times a day GABAPENTIN 46175640388 James K ADVIL 200 MG CAPS 2 tabs as needed by mouth every 4 hours IBUPROFEN [id number] James K MIRALAX ORAL PACKET by mouth daily POLYETHYLENE GLYCOL 3350 [id number] James K MIRALAX ORAL PACKET by mouth daily 0 04/25 POLYETHYLENE GLYCOL 3350 [id number] Lorne P PERCOCET 10-325 MG TABS 1 tab as needed by mouth every six hours OXYCODONE-ACETAMI NOPHEN 39025298871 Lorne P LEVAQUIN 750 MG ORAL TABLET by mouth daily 0 02/20 LEVOFLOXACIN 14016026193 Singh Polk MD ADVIL 200 MG CAPS 2 tabs as needed by mouth every 4 hours 12/06 IBUPROFEN 47733310639 Lorne P GABAPENTIN 300 MG CAPS 2 tabs by mouth three times a day 0 05/22 GABAPENTIN 23253601285 Lorne P CYCLOBENZAPRINE HCL 10 MG TABS 1 tab as needed by mouth three times a day CYCLOBENZAPRINE HCL 27683695942 Lorne P COLACE 100 MG CAPS by mouth daily 0 7 DOCUSATE SODIUM 65714040947 Lorne P [facility] D3 25 MCG (1000 UT) CAPS by mouth daily CHOLECALCIFEROL 92128877211 Lorne P CALCI-CHEW TABLET CHEWABLE 500 mg by mouth three times a day CALCIUM CARBONATE CHEW 44508458158 Lorne P LACTINEX PACK 2 tabs by mouth twice daily 02/20 LACTOBACILLUS 69953939256 Lorne P AMBIEN 10 MG TABS one tab as needed by mouth at bedtime ZOLPIDEM TARTRATE 12459541845 Lorne P CEFEPIME HCL 2 GM INJECTION SOLUTION RECONSTITUTED 2gm IV q12hr HH [facility] 01/18 CEFEPIME HCL [id number] Barbara Chaudhari RN Medications Administered No information [...] Procedures Code Procedure Name Date Entry Date [id number] CBC with Differential 2016 CPT-76793 Sedimentation Rate (ESR) 201 05/25/20 CPT-78142 C- reactive protein CPT-93928 MRI Lumbar Spine with/without constrast 2 CPT-Cooral Continue oral antibiotics 08/01/09 [id number],[id number] CBC with Differential 2016 CPT-45856 CMP CPT-13087 Sedimentation Rate (ESR) 201 05/23/09 CPT-12651 C- reactive protein CPT-Cooral Continue oral antibiotics 06/11/27 CPT-francisco New Oral Antibiotic CPT-Cooral Continue oral antibiotics 06/11/06 CPT-ca Continue IV antibiotics 2015 CPT-J2185 Meropenem CPT-Cooral Continue oral antibiotics 20 07/10/15 [id number] CBC with Differential 2015 CPT-55023 CMP CPT-karlos Change IV antibiotics 11/29 CPT-Cooral Continue oral antibiotics 07/10/08 CPT-sl STAT Labs [id number] CBC with Differential 2015 CPT-05382 C- reactive protein CPT-35647 Sedimentation Rate (ESR) 201 05/02/08 CPT-OD Other Drug CPT-J2185 Meropenem 75443 Hepatitis C Atb: (ICD 10 Code: Z11.59) 20 07/10/07 CPT-abhishek New IV antibiotic CPT-Cooral Continue oral antibiotics 07/10/01 CPT-francisco New Oral Antibiotic [id number] CBC with Differential 2015 CPT-89842 CMP CPT-88108 Sedimentation Rate (ESR) 201 05/02/01 CPT-31820 C- reactive protein CPT-ca Continue IV antibiotics [...]
[2025-07-02 22:09] LABS: Lactate Venous 2.7 mmol/L (0.4-2.0)
--- OUTSIDE RECORDS SUMMARY | 2025-07-02 22:09 | XMS_ITS | Encounter Summary ---
Author Organization Healthcare Address [address] [place] [address] Care Team Providers Care Putty And Caulking Supervisor Name Role Phone Mahesh Aranda MD Primary Care Provider [phone] Encounter Details Date Type Department Care Team ([facility] st Contact Info) Description 05/01/2025 Community [facility] [address] [place] [address] Jose Marshall, DO [address] [place] [address] [place] [address] Social History Tobacco Use Types Packs/Day Years [...] documented as of this encounter Care Teams Putty And Caulking Supervisor Relationship Specialty Start Date End Date Mahesh Aranda MD PCP - General 11/19/21 documented as of this encounter
--- OUTSIDE RECORDS SUMMARY | 2025-07-02 22:09 | XMS_ITS | Clinical Summary ---
Author Organization [facility] Address [address] [place] [address] Care Team Providers Care Director Enterprise Data Architecture Name Role Phone Provider, No Known Primary Care Provider Unavail able Allergies Active Allergy Reactions Criticality Noted Date Comments Morphine And Codeine Rash Low 01/16/2017 Sulfa Antibiotics Rash Low 01/16/2017 Medications ibuprofen (ADVIL,MOTRIN) 800 MG tabletIndications :Chronic right-sided low back pain without sciatica,Lumbar radiculopathy,Sco liosis (and kyphoscoliosis), idiopathic TAKE ONE TABLET BY MOUTH EVERY 8 HOURS WITH FOOD NEEDED FOR MODERATE PAIN 90 tablet 8 Active metoprolol tartrate (LOPRESSOR) 100 MG tabletIndications :Essential hypertension TAKE ONE TABLET BY MOUTH 2 TIMES A DAY 60 tablet 3 9 Active zolpidem (AMBIEN) 10 MG tabletIndications :Other insomnia Take 1 tablet by mouth At Night As Needed for Sleep. 30 tablet 2 9 Active tiZANidine (ZANAFLEX) 4 MG tabletIndications :Chronic bilateral low back pain without sciatica TAKE ONE TABLET BY MOUTH EVERY 8 HOURS NEEDED FOR MUSCLE SPASMS 90 tablet 9 Active oxyCODONE-acetami nophen (PERCOCET) 5-325 MG per tablet Take 1 tablet by mouth Every 8 (Eight) Hours As Needed. Active hydroCHLOROthiazi de (HYDRODIURIL) 12.5 MG oral Take 12.5 mg by mouth Daily. Active cloNIDine (CATAPRES) 0.1 MG tablet Take 0.1 mg by mouth Daily As Needed for High Blood Pressure. Active Active Problems Problem Noted Date Diagnosed Date Mild vitamin D deficiency 09/21/2017 Essential hypertension 08/06/2017 Cigarette nicotine dependence without complicati on 05/06/2017 Chronic bilateral low back pain without sciatica 05/06/2017 Depression with anxiety 05/06/2017 Pyogenic inflammation of bone 05/06/2017 Kyphoscoliosis deformity of spine 04/27/2017 Resolved Problems Problem Noted Date Diagnosed Date Resolved Date Acute deep vein thrombosis ( DVT) of proximal vein of left lower extremity 05/06/2017 05/08/2019 Family History Medical History Relation Name Comments No Known Problems Father No Known Problems Mother Relation Name Status Comments Father Mother Alive Social History Tobacco Use Types Packs/Day Years Used Date Smoking Tobacco: Every Day Cigarettes Smokeless Tobacco: Never Tobacco Cessation:Ready to Q uit: Yes; Counseling Given: Yes Alcohol Use Standard Drinks/Week Comments No 0 (1 standard drink = 0.6 oz pur e alcohol) Abuse Screen Answer Date Recorded Unsafe at Home or Work/School Not on file Feels Threatened by Someone? Not on file 06/2023 Does Anyone Keep You from Co ntacting Others or Doint Things Outside the Home? Not on file 08/29/2023 Physical Sign of Abuse Present Not on file 1 Housing Stability Answer Date Recorded Current Living Arrangements Not on file 06/2023 Potentially Unsafe Housing Conditions Not on kike e 08/29/2023 Family and Community Support Answer Bharath e Recorded Help with Day-to-Day Activities Not on file 08/29/2023 Lonely or Isolated Not on file 08/29/2023 Employment Answer Date Recorded Do you want help finding or keeping work or a gardenia b? Not on file 08/29/2023 Disabilities Answer Date Recorded Concentrating, Remembering, or Making Decisions Difficulty Not on file 08/29/2023 Doing Errands Independently Difficulty Not on fi le 08/29/2023 Education Answer Date Recorded Help with school or training? Not on file Preferred Language Not on file 08/29/2023 Comments No Sex and Gender Information Value Date Recorded Sex Assigned at Not on file Legal Sex Female 10:59 AM EDT Gender Identity Not on file Sexual Orientation Not on file Last Filed Vital Signs Vital Sign Reading Time Taken Comments Blood Pressure 113/70 09/13/2020 11:01 PM EDT Pulse 94 09/13/2020 11:01 PM EDT Temperature 36.4 C (97.6 F) 09/13/2020 11:01 PM EDT Respiratory Rate 18 09/13/2020 11:01 PM EDT Oxygen Saturation 99% 09/13/2020 11:01 PM EDT Inhaled Oxygen Concentration - - Weight 56.2 kg (124 lb) 09/13/2020 11:01 PM EDT Height 154.9 cm (5' 1 ) 09/13/2020 11:01 PM EDT Body Mass Index 23.43 09/13/2020 11:01 PM EDT Plan of Treatment Health Maintenance Due Date Last Done Comments Annual Gynecologic Pelvic an d Breast Exam 1974 MAMMOGRAM 2014 ANNUAL PHYSICAL 03/24/2017 COLOGUARD 2019 COLON CANCER SCREENING 5 YEA R SIGMOIDOSCOPY 2019 COLONOSCOPY [address] CANCER SCREENING 2019 CT COLONOGRAPHY 2019 FECAL OCCULT BLOOD TEST 2019 FIT Testing (1 year) 2019 TDAP/TD VACCINES (2 - Td or Tdap) 11/22/2023 11/22/2013 (Patient-Reported (Performed Externally)) Pneumococcal Vaccine 50+ (1 of 1 - PCV) 2024 ZOSTER VACCINE (1 of 2) 2024 COVID-19 Vaccine (1 - 2023- season) 2024 INFLUENZA VACCINE 08/22/2025 HEPATITIS C SCREENING Completed 10/04/2018, 018 Medical Devices Implanted Type Area Industrial Economist Device Identifier Shelf Expiration Date Model / Serial / Lot Orthoblend Dbm Mickey 5cc - [id number] - [id number] Implanted:Qty: 1 on 04/27/2017 by Jeffrey Wheat MD at [facility] Implant N/A: Spine Lumbar [employer] 01/12/2019 [id number] / [id number] / NA Conn Tsrh 3d 10 Lg - [id number] Implanted:Qty: 1 on 04/27/2017 by Jeffrey Wheat MD at [facility] Implant N/A: Spine Lumbar [employer] [id number] / / NA Scrw Set For Tsrh 3dx - [id number] Implanted:Qty: 9 on 04/27/2017 by Jeffrey Wheat MD at [facility] Implant N/A: Spine Lumbar [employer] [id number] / / NA Scrw Ma Clsd Ti 7.5x80mm - [id number] Implanted:Qty: 2 on 04/27/2017 by Jeffrey Wheat MD at [facility] Implant N/A: Spine Lumbar [employer] [id number] / / NA Scrw Hex Breakoff Ti 1/3tfb89gp - [id number] Implanted:Qty: 4 on 04/27/2017 by Jeffrey Wheat MD at [facility] Implant N/A: Spine Lumbar [employer] [id number] / / NA Conn Cls Lat 5.5x6.13y67sp Md - [id number] Implanted:Qty: 2 on 04/27/2017 by Jeffrey Wheat MD at [facility] Implant N/A: Spine Lumbar [employer] [id number] / / NA Dali Solera Line 5.5mm 500mm - [id number] Implanted:Qty: 1 on 04/27/2017 by Jeffrey Wheat MD at [facility] Implant N/A: Spine Lumbar [employer] [id number] / / NA Scrw Mpa Shrt Post Ti 5.5x45mm - [id number] Implanted:Qty: 2 on 04/27/2017 by Jeffrey Wheat MD at [facility] Implant N/A: Spine Lumbar [employer] [id number] / / NA Scrw Mpa Thrd Post Ti 6.5x45mm - [id number] Implanted:Qty: 2 on 04/27/2017 by Jeffrey Wheat MD at [facility] Implant N/A: Spine Lumbar [employer] [id number] / / NA Scrw Mpa Shrt Post Ti 7.5x40mm - [id number] Implanted:Qty: 1 on 04/27/2017 by Jeffrey Wheat MD at [facility] Implant N/A: Spine Lumbar [employer] [id number] / / NA Orthoblend Dbm Mickey 10cc Sm - [id number] - [id number] Implanted:Qty: 1 on 04/27/2017 by Jeffrey Wheat MD at [facility] Implant N/A: Spine Lumbar [employer] 11/24/2018 [id number] / [id number] / NA Scrw Mpa Thrd Post Ti 7.5x45mm - [id number] Implanted:Qty: 4 on 04/27/2017 by Jeffrey Wheat MD at [facility] Implant N/A: Spine Lumbar [employer] [id number] / / NA Plt Crslnk X10 Lp M/ Ti 5.5x28/30 - [id number] Implanted:Qty: 1 on 04/27/2017 by Jeffrey Wheat MD at [facility] Implant N/A: Spine Lumbar [employer] [id number] / / NA Plt Crslnk X10 Lp M/ Ti 5.5x34/36 - [id number] Implanted:Qty: 1 on 04/27/2017 by Jeffrey Wheat MD at [facility] Implant N/A: Spine Lumbar [employer] [id number] / / NA Granules Osteocond Mstrgrft Ceram 5 - [id number] Implanted:Qty: 1 on 04/27/2017 by Jeffrey Wheat MD at [facility] Implant N/A: Spine Lumbar [employer] 02/11/2022 [id number] / / [id number] Granules Osteocond Mstrgrft Ceram 5 - [id number] Implanted:Qty: 1 on 04/27/2017 by Jeffrey Wheat MD at [facility] Implant N/A: Spine Lumbar [employer] 02/11/2022 [id number] / / [id number] Granules Osteocond Mstrgrft Ceram 5 - [id number] Implanted:Qty: 1 on 04/27/2017 by Jeffrey Wheat MD at [facility] Implant N/A: Spine Lumbar [employer] 02/11/2022 [id number] / / [id number] Kt Grft Bone Inf Lg 2 - [id number] Implanted:Qty: 1 on 04/27/2017 by Jeffrey Wheat MD at [facility] Implant N/A: Spine Lumbar [employer] 01/20/2018 [id number] / / [id number] Spacr Vbs Capstone Vertestack/Sm 8x22mm - [id number] Implanted:Qty: 1 on 04/27/2017 by Jeffrey Wheat MD at [facility] Implant [employer] 02/24/2025 [id number] / / [id number] [facility] 3dx - [id number] Implanted:Qty: 4 on 04/27/2017 by Jeffrey Wheat MD at [facility] Implant N/A: Spine Lumbar [employer] [id number] / / NA [facility] 3dx Fl - [id number] Implanted:Qty: 4 on 04/27/2017 by Jeffrey Wheat MD at [facility] Implant N/A: Spine Lumbar [employer] [id number] / / NA Explanted Type Area Industrial Economist Device Identifier Shelf Expiration Date Model / Serial / Lot Scrw Mpa Thrd Post Ti 6.5x45mm - [id number] Explanted:Qty: 1 on 04/27/2017 at [facility] Implant N/A: Spine Lumbar [employer] [id number] / / NA Description: EXPLANTED DUE TO NOT ENOUGH ROOM FOR CONNECTOR FOR DALI Procedures Procedure Name Priority Date/Time Associated Diagnosis Comments HEPATITIS PANEL, ACUTE STAT 10/04/2018 2:26 PM EST from Last 3 Months or Most Recently Relevant to Health Maintenance Results * (ABNORMAL) Hepatitis Panel, Acute (10/04/2018 2:26 PM EST) Hepatitis B Surface Ag Non-Reacti ve Non-Reacti ve 10/04/2018 6:34 PM EST [facility] Hep A IgM Reactive(A A) Non-Reacti ve 10/04/2018 6:34 PM EST [facility] Comment:Results may be false ly decreased if patient taking Biotin. Hep B C IgM Non-Reacti ve Non-Reacti ve 10/04/2018 6:34 PM EST [facility] Comment:Results may be false ly decreased if patient taking Biotin. Hepatitis C Ab Reactive(A A) Non-Reacti ve 10/04/2018 6:34 PM EST [facility] Blood Venipuncture / Unknown 10/04/2018 2:26 PM EST 10/04/2018 2:32 PM EST Michael JUAREZ LAB BLOOD ORDERABLES Carol baeza Result [facility]
[address] [place] [address], from Last 3 Months or Most Recently Relevant to Health Maintenance Insurance Advance Directives * Full Code (Latest Code Status on File) Date Activated Date Inactivated Comments 04/27/2017 3:29 PM 04/30/2017 3:02 PM Care Teams Director Enterprise Data Architecture Relationship Specialty Start Date End Date Provider, [place] [address] PCP - General 09/13/20
--- OUTSIDE RECORDS SUMMARY | 2025-07-02 22:09 | XMS_ITS | Clinical Summary ---
Author Organization [facility] Address [address] [place], [place] [address] Phone Care Team Providers Care Data Analyst Name Role Phone Unavailable Primary Care Provider [...] t be different from the original. David: [phone] 09/25/21.- 06/30/22- [id number] Drug Screen 07/02/22 Utilization audit completed by [...] hx of suicide attempt by overdose in [place]. Currently denies HSI, AVH. Has a lack of motivation and energy and crying spells. Currently is just tired of hurting. In the past has Effexor which helped. Works at [employer] in [employer]. High school graduate. Associates in medical and [...] Currently does not see a pain or eligibility specialist. Has tried chiropractor, PT, accupuncture. Takes [...] 1 31.5 Started: 12/20/1993 Smokeless Tobacco: Never Tobacco Cessation:Ready [...] - 2023-2 5 season) 2024 Influenza Vaccine (#1) 2025 09/16/2020 Meningococcal B Vaccine Aged Out No l [...] AM EDT : Incomplete-need additional imaging evaluation (DIK-Cobuwarl-5) ~ RECOMMENDATION: Ultrasound of the left breast, [...] densities. ~ IMPRESSION: Incomplete-need additional imaging evaluation (TDA-Otfavbgi-8) ~ RECOMMENDATION: Ultrasound of the left breast, [...] by a Radiologist and CAD. Trip [facility] MAMMOGRAPHY ORDERABLES Fi nal Result from Last 3 Months or Most Recently Relevant to Health Maintenance Insurance [facility] [place] [address] [facility] [place] [address] [facility] [place] [address] Advance Directives For more information, please contact: [phone] * Full Code (Latest Code Status on File) Date Activated Date Inactivated Comments 12/20/2019 1:42 PM 12/24/2019 9:09 PM
--- OUTSIDE RECORDS SUMMARY | 2025-07-02 22:09 | XMS_ITS | Clinical Summary ---
Author Organization [facility] Address [facility] [place] [address] Care Team Providers Care Flight Technician Name Role Phone Pcp, No Primary Care [...] therelease of HIV test results or diagnoses. [id number] Allergies No known active allergies Medications [...] Treatment Not on file Insurance [employer] [facility] Care Teams Flight Technician Relationship Specialty Start Date End Date Pcp, No No Address PCP - General Pediatrics 12/30/16
--- OUTSIDE RECORDS SUMMARY | 2025-07-02 22:09 | XMS_ITS | Clinical Summary ---
Author Organization [facility] Address [address] [place] [address] Care Team Providers Care Valet Manager Name Role Phone Mahesh Aranda MD Primary Care Provider [phone] Allergies Active Allergy Reactions Criticality Noted Date [...] Overview (11/19/2021): On Methadone 120mg daily per [facility]. 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 Has tried chiropractor, PT, accupuncture. Takes [...] hx of suicide attempt by overdose in [email or web address]. Currently denies HSI, AVH. Has a lack of motivation and energy and crying spells. Currently is just tired of hurting. In the past has Effexor which helped. Works at [employer] in [employer]. High school graduate. Associates in medical and [...] Description 05/01/2025 Community Orders [facility] [address] [place] [address] Jose Marshall DO from Last 3 Months [...] Date Last Done Comments [facility]-Depression Screening 1975 [facility]-/Child/Adol SDOH Screenings 1975 [facility]- SDOH Screenings 1992 [...] 2024 [facility]-Zoster Vaccines (1 of 2) 2024 [id number] Vaccine (1 - 20 24-25 season) 2024 [facility]-Influenza Vaccine (#1) 2025 09/16/2020 [facility]-Breast Cancer Screening Discontinued 02/21/2015 [...] this topic Medical Devices Implanted Type Area Build And Deployment Engineer Device Identifier Shelf Expiration Date Model / Serial / Lot Cement Palacos W/Gent - [id number] Implanted:Qty: 2 on 11/19/2021 by Singh Jarquin MD at [facility] Cement Left: Knee [employer]ae[id number] 04/21/2024 [id number] / / [id number] Cement Palacos W/Gent - [id number] Implanted:Qty: 2 on 11/19/2021 by Singh Jarquin MD at [facility] Cement Left: Knee [employer]-[id number] 08/21/2024 [id number] / / [id number] Chg Patella Gii Oval Resurfaci - [id number] Implanted:Qty: 1 on 11/19/2021 by Singh Jarquin MD at [facility] Knee Left: Knee [employer]pherson [employer]hew [employer]-[id number] 06/21/2031 [id number] / / [id number] Knee Tibial Knee Gii P/S All Poly Sz4 13mm Lt - [id number] Implanted:Qty: 1 on 11/19/2021 by Singh Jarquin MD at [facility] Knee Left: Knee [employer]-[id number] 06/21/2025 [id number] / / [id number] Chg Femoral Legion Ps Biometric Fingerprinting Technician Sz 5 - [id number] Implanted:Qty: 1 on 11/19/2021 by Singh Jarquin MD at [facility] Knee Left: Knee [employer]-[id number] 08/05/2030 [id number] / / [id number] Dbm Putty Synthecure 10cc - [id number] Implanted:Qty: 1 on 10/13/2021 by Tomy Wong MD at [facility] N/A: Spine Lumbar Sometrics Inc-[id number] 02/17/2023 20-125 / / [id number] Graft Jacket Thick [id number] - [id number] Implanted:Qty: 1 on 11/19/2021 by Snigh Jarquin MD at [facility] Left: Knee BioProtect-[id number] 09/06/2022 [id number] / / [id number] Procedures Procedure Name Priority Date/Time Associated Diagnosis [...] femaleDate of Service: 02/21/2015 Referring Phy:Fabiola BrizuelaAccount: [phone] Fabiola Brizuela , FINAL REPORT PROCEDURE: Tomosynthesis [...] compared to prior imaging studies performed at [facility] on 01/20/2012 and 02/15/2013, and [...] femaleDate of Service: 02/21/2015 Referring Phy:Fabiola BrizuelaAccount: [id number] 01/20/12 ultrasound. Finding 2: A focused ultrasound [...] area of focal tenderness. Procedure Note Mack Sigeel MD - 03/30/2021 Patient Name:Susan Sharma : 1975 Age: 39 Gender: femaleDate of Service:02/21/2015 Referring Phy:Fabiola BrizuelaAccount: [id number] Fabiola Brizuela , FINAL REPORT PROCEDURE: Tomosynthesis [...] been [facility]2013, and [...] Age: 39 Gender: femaleDate of Service:02/21/2015 Referring Phy:Hickssydnie BrizuelaAccount: [id number] 01/20/12 ultrasound. Finding 2: A focused ultrasound [...] Narrative SUNQUEST - 06/23/2010 10:14 AM EDT [facility] MR #: [id number] [facility] [address] [place], [place] [address] 1975 (Age: 35) FW Collect Date: 06/18/2010 00:00 Receipt Date: 06/19/2010 10:53 Page 1 DEPARTMENT OF PATHOLOGY AND LABORATORY MEDICINE CYTOPATHOLOGY REPORT Email: [email or web address] ATTENDING MD/Practitioner: Westley Brizuela MD Service: OBE Location: [facility] Reported: 06/23/2010 10:14 Collected: 06/18/2010 00:00 INTERPRETATION A. THIN PREP (VAGINAL): NEGATIVE FOR INTRAEPITHELIAL LESION OR MALIGNANCY. SATISFACTORY FOR EVALUATION. Slide scanned and imaged by [employer] ThinPrep Imaging System with manual review of [...] results is suggested (please call Microbiology at [phone] for results). CLINICAL INFORMATION: Menstrual History: Post-hysterectomy Date of Last Menstrual Period: {Not Provided} Other Clinical Conditions: Abnormal pap results elsewhere Date and code not provided If ASCUS and > 24 years of age, HPV/DNA testing requested. SPECIMEN DESCRIPTION: A: THIN PREP (VAGINAL) THIN PREP PROCESS CELLULAR ENHANCEMENT ICD: V76.47 VAGINA, SPECIAL SCREENING FOR MALIGNANT NEOPLASMS F: A; RT IMAGE [id number] SNOMED CODES: A; [id number] In cases where a pathologist has signed out the report, the service has been rendered in part by a resident. The signing pathologist has performed and is responsible for the reported pathologic evaluation. us Historical Provider MD LAB PATHOLOGY ORDERABLES Final Result Duxter from Last 3 Months or Most Recently Relevant to Health Maintenance Insurance [employer] [facility] MEDICAID Advance Directives * Full Code (Latest Code Status on File) Date Activated Date Inactivated Comments 11/19/2021 12:30 PM 11/20/2021 6:20 PM Question Answer Comments Patient has decision-making capacity? Yes * Full Code Date Activated Date Inactivated Comments 10/13/2021 11:33 AM 10/19/2021 1:29 PM Question Answer Comments Patient has decision-making capacity? Yes Care Teams Valet Manager Relationship Specialty Start Date End Date Mahesh Aranda MD PCP - General 11/19/21
[2025-07-02 22:13] VITALS: BP 175/119; PULSE 130; RESP 20; TEMP 37.4; O2SAT 99; BMI 32.0
[2025-07-02 22:17] LABS: Albumin Level 5.2 g/dl (3.5-5.0); Chloride 96 mmol/L (98-107); HCG Qualitative, Serum Negative (Negative); Potassium 4.0 mmoL/L (3.5-5.1); Sodium 138 mmol/L (136-145)
[2025-07-02 22:19] LABS: Blood Urea Nitrogen 20 mg/dl (7-17); Creatinine,Serum 0.60 mg/dl (0.52-1.04); Estimated Glomerular Filt Rate 105 ml/min (>60); GFR (African American) 128 ML/MIN (>60); Lipase 99 U/L (23-300); Magnesium 1.9 mg/dl (1.6-2.3)
[2025-07-02] MEDS: MORPHINE 4MG/ML SYRINGE 4 MG IV (22:19)
[2025-07-02] MEDS: PROCHLORPERAZINE 10MG/2ML VIAL 10 MG IV (22:19)
[2025-07-02 22:20] LABS: Alanine Aminotransferase 26 U/L (12-78); Albumin/Globulin Ratio 1.1 (1.1-1.8); Alkaline Phosphatase 191 U/L (38-126); Anion Gap 16.0 mEq/L (5-15); Aspartate Amino Transferase 31 U/L (14-36); Bilirubin,Total 0.8 mg/dl (0.2-1.3); Calcium 10.6 mg/dl (8.4-10.2); Carbon Dioxide 30 mmol/L (22.0-30.0); Globulin 4.6 g/dL (1.3-3.2); Glucose 140 mg/dl (74-100); Total Protein,Serum 9.8 g/dl (6.3-8.2)
[2025-07-02 22:25] LABS: INR 1.04 (0.9-1.1); Prothrombin Time 11.5 seconds (10.1-12.5)
[2025-07-02 22:39] LABS: Troponin I < 0.01 ng/ml (0.00-0.034)
--- NOTE | 2025-07-02 23:00 | PC.NURSE ---
Pt back from CT, chest pain still the same and still dry heaving
[2025-07-02] MEDS: IOPAMIDOL-370 (76%);100ML BOTTLE 80 ML IV (23:06)
[2025-07-02] MEDS: SODIUM CHLORIDE 0.9% 10ML SYR (RAD ONLY) 10 ML IV (23:06)
[2025-07-02] MEDS: 0.9 % SODIUM CHLORIDE 50 ML VIAL IV (23:07)
[2025-07-02] MEDS: droPERidol 5MG/2ML VIAL 2.5 MG IV (23:07)
[2025-07-02 23:40] LABS: Hepatitis C Ab Qual. W/ RFX REACTIVE (Negative)
[2025-07-03 00:33] LABS: Troponin I < 0.01 ng/ml (0.00-0.034)
[2025-07-03] MEDS: PROMETHAZINE HCL 25MG/ML 1ML VIAL 25 MG IV (01:09)
[2025-07-03] MEDS: METOCLOPRAMIDE HCL 10MG/2ML VIAL 5 MG IVP ×4 (01:14→14:15)
[2025-07-03 01:28] VITALS: BP 173/101; PULSE 99; RESP 16; TEMP 36.9; O2SAT 99
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
[2025-07-03 02:10] LABS: Reflex Lactic Add Lactic Reflex
--- NOTE | 2025-07-03 02:16 | PC.NURSE ---
Patient arrived to floor via wheelchair from ED at 02:15.
[2025-07-03 02:24] VITALS: BP 177/114; PULSE 105; RESP 22; TEMP 37.4; O2SAT 100; BMI 28.2
[2025-07-03 02:54] LABS: Lactic Acid Follow Up (RFLX 1) 1.7 mmol/L (0.7-2.1)
[2025-07-03] MEDS: FAMOTIDINE 20MG/2ML VIAL 20 MG IV (03:56)
[2025-07-03] MEDS: SODIUM CHLORIDE 0.9% 10ML VIAL 8 ML IV (03:57)
[2025-07-03] MEDS: LACTATED RINGERS 1000ML 1,000 ML 125 ML IV ×2 (03:57→14:56)
[2025-07-03 04:00] VITALS: BP 172/120; PULSE 99; RESP 20; TEMP 37.1; O2SAT 99; BMI 29.0
[2025-07-03 04:29] LABS: Hematocrit 44.5 % (37.0-47.0); Hemoglobin 15.4 g/dL (12.2-16.2); Immature Granulocytes % 0.3 %; Mean Corpuscular HGB Conc 34.6 g/dL (31.8-35.4); Mean Corpuscular Hemoglobin 30.1 pg (27.0-31.2); Mean Corpuscular Volume 86.9 fl (81-99); Nucleated Red Blood Cells % 0 %; Platelet Count 359 K/mm3 (142-424); Red Blood Count 5.12 M/mm3 (4.20-5.40); Red Cell Distribution Width-SD 39.8 fL; White Blood Count 11.6 K/mm3 (4.8-10.8)
[2025-07-03 04:37] LABS: Albumin Level 5.0 g/dl (3.5-5.0); Chloride 100 mmol/L (98-107); Potassium 3.2 mmoL/L (3.5-5.1); Sodium 137 mmol/L (136-145)
[2025-07-03 04:39] LABS: Blood Urea Nitrogen 16 mg/dl (7-17); Creatinine Clearance Estimated 150 mL/min (50-200); Creatinine,Serum 0.50 mg/dl (0.52-1.04); Estimated Glomerular Filt Rate 130 ml/min (>60); GFR (African American) 157 ML/MIN (>60)
[2025-07-03 04:40] LABS: Alanine Aminotransferase 24 U/L (12-78); Albumin/Globulin Ratio 1.3 (1.1-1.8); Alkaline Phosphatase 168 U/L (38-126); Anion Gap 14.2 mEq/L (5-15); Aspartate Amino Transferase 33 U/L (14-36); Bilirubin,Total 0.8 mg/dl (0.2-1.3); Calcium 9.8 mg/dl (8.4-10.2); Carbon Dioxide 26 mmol/L (22.0-30.0); Globulin 3.9 g/dL (1.3-3.2); Glucose 150 mg/dl (74-100); Magnesium 1.7 mg/dl (1.6-2.3); Total Protein,Serum 8.9 g/dl (6.3-8.2)
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
[2025-07-03 04:54] LABS: Troponin I < 0.01 ng/ml (0.00-0.034)
[2025-07-03] MEDS: ONDANSETRON 4MG/2ML VIAL 4 MG IV (05:33)
[2025-07-03] MEDS: KETOROLAC 30MG/ML VIAL 15 MG IV (05:33)
[2025-07-03] MEDS: SODIUM CHLORIDE 0.9% 25ML BAG 25 ML IV (06:52)
[2025-07-03] MEDS: PROMETHAZINE HCL 25MG/ML 1ML VIAL 12.5 MG IV (06:52)
[2025-07-03 07:37] VITALS: BP 170/110; PULSE 100; RESP 24; TEMP 37.2; O2SAT 95
[2025-07-03 08:30] VITALS: O2SAT 95
[2025-07-03 08:48] LABS: Thyroid Stimulating Hormone 0.29 uIU/mL (0.465-4.68)
[2025-07-03 09:06] LABS: Hemoglobin A1C 5.1 % (4.0-6.0)
--- NOTE | 2025-07-03 09:12 | HMH.PHAINT1 ---
Pharmacy Intervention Comments: home medication list verified using list from outpatient pharmacy and methadone treatment clinic
[2025-07-03] MEDS: GABAPENTIN 600MG TABLET 600 MG PO (09:13)
[2025-07-03] MEDS: AMLODIPINE 5MG TABLET 5 MG PO (09:13)
[2025-07-03] MEDS: MAGNESIUM SULFATE IN WATER 2 GM/50 ML PIGGYBACK IV ×2 (11:07→14:12)
[2025-07-03 11:24] LABS: Adenovirus,PCR Not Detected (NotDetected); Chlamydophila Pneumoniae, PCR Not Detected (NotDetected); Coronavirus 19, PCR Not Detected (NotDetected); Coronovirus HKU1,PCR Not Detected (NotDetected); Influenza A, PCR Not Detected (NotDetected); Influenza AH1, 2009 Not Detected (NotDetected); Influenza AH1, PCR Not Detected (NotDetected); Influenza AH3,PCR Not Detected (NotDetected); Influenza B, PCR Not Detected (NotDetected); Microscopic, Urine URINE MICROSCOPIC (MICROSCOPIC); Mycoplasma Pneumoniae, PCR Not Detected (NotDetected); Parainfluenza 1, PCR Not Detected (NotDetected); Parainfluenza 2, PCR Not Detected (NotDetected); Parainfluenza 3, PCR Not Detected (NotDetected); Parainfluenza 4, PCR Not Detected (NotDetected)
[2025-07-03 11:25] LABS: Free T4 (Free Thyroxine) 0.98 ng/dl (0.78-2.19)
[2025-07-03 11:28] LABS: Bilirubin,Urine Negative (Negative); Color,Urine YELLOW (Yellow); Glucose,Urine (UA) Negative (Negative); Ketones,Urine 1+ (Negative); Leukocyte Esterase,Urine Negative (Negative); PH,Urine 6.0 (5.0-8.5); Protein,Urine 2+ (Negative); Specific Gravity, Urine 1.025 (1.005-1.030); Urobilinogen,Urine 0.2 EU/dl (0.2)
[2025-07-03 11:41] LABS: Bacteria,Urine 1+ /lpf; WBC,Urine Occasional #/hpf (0-3)
[2025-07-03 11:44] LABS: Benzodiazepines Screen,Urine Negative ng/ml (<200)
[2025-07-03 11:45] LABS: Amphetamine/Metha Screen,Urine Negative ng/ml (<1000); Barbiturates Screen,Urine Negative ng/ml (<200)
[2025-07-03 11:49] LABS: Methadone Screen,Urine Positive ng/ml (<300)
[2025-07-03 11:50] LABS: Opiate Screen,Urine Positive ng/ml (<300)
[2025-07-03 11:51] LABS: Phencyclidine Screen,Urine Negative ng/ml (<25)
[2025-07-03 11:58] VITALS: BP 129/90; PULSE 89; RESP 16; TEMP 36.9; O2SAT 94
--- NOTE | 2025-07-03 15:30 | EXP.DC.SUM ---
General Admission date:: 07/03/25 HPI HPI HPI: Patient's been slightly nauseated today that began vomiting yesterday evening has not been able to stop., Patient treated with multiple drugs in the ER but still remains vomiting. ER physician has added Reglan with his last dose of Phenergan. But do agree that the patient not able to keep anything down and needs to be admitted for IV fluids. Also noting that the patient takes methadone 140 mg a day. She has not been able to take that the day and is approaching approximately 30 hours which is the earliest that methadone withdrawals were to start.. Presently have ordered Subutex to be given for withdrawal symptoms. Plan to place the patient into inpatient and continue IV fluids and antiemetics as needed.. Was unable to find the source of this she is around to younger children that have started school question and viral. She states she has not been eating out in any restaurants, states she has not been exposed to any marijuana or CBD. Only changes patient has long history of obstipation normally takes lactulose but had knocked it over and spilled it at home and has not replaced it and has not had a bowel movement in [address] scan was done that did not show any significant constipation at this time. CT of chest and CT of abdomen showed no real acute findings. Patient has a long history of severe pain actually has burn to skin on her back and changed its color permanently from heating pads.. Recently had osteomyelitis was on antibiotics for an extended period of time see note about left ankle. Patient is also a long-term smoker but all troponins have been normal Patient will be placed on the floor to see if she is doing much better in the morning and being able to keep anything down right now she will be n.p.o. with only ice chips at the present time. Hospital Course Hospital Course Hospital Course: Susan Balbuena is a 50-year-old who presented with intractable nausea/vomiting and was admitted for the same. #Intractable nausea/vomiting #Suspected food poisoning versus viral syndrome ? Patient presented with nausea/vomiting since yesterday, but cannot recall doing anything differently. Takes methadone for opioid use disorder, but has not changed doses or skipped any doses. ? Patient does state that she uses CBD gummies that contain THC for sleep, but she has been taking this for about a year. ? UDS positive for THC, as well as opioid, benzodiazepines which is expected as she received these medications in the hospital. ? CMP showed mild hypokalemia/hypomagnesemia, CBC showed hemoconcentration but otherwise unremarkable. CT chest/abdomen/pelvis also unremarkable. ? Gradually improved with IV fluids, antiemetics especially metoclopramide. No history of gastroparesis. A1c 5.1%. ? Patient tolerating diet, with only mild nausea without vomiting. No abdominal pain, including RUQ. Medically stable for discharge. ? Discharged with metoclopramide 5 mg every 6 hours as needed, will follow-up with PCP within 1 week. #Opioid use disorder in remission ? Continue daily methadone 140 mg. #Hypertension ? Continue amlodipine 5 mg. Total time spent on discharge: 34 minutes on chart review, counseling, documentation, and direct care with patient. Exam Data for Last 24 hours Vital signs and Labs for Last 24 Hours: Temp Pulse Resp BP Pulse Ox O2 Del Method 98.5 F 89 16 129/90 94 L Room Air 07/03/25 11:58 07/03/25 11:58 07/03/25 11:58 07/03/25 11:58 07/03/25 11:58 07/03/25 15:00 Laboratory Results - last 24 hr 07/02/25 21:50: WBC 14.0 H, RBC 5.57 H, Hgb 16.6 H, Hct 47.7 H, MCV 85.6, MCH 29.8, MCHC 34.8, RDW 12.6, Plt Count 475 H, MPV 9.5, Neut % (Auto) 79.7, Lymph % (Auto) 15.8, [place] % (Auto) 4.1, Eos % (Auto) 0.1, Baso % (Auto) 0.1, Neut # (Auto) 11.2 H, Lymph # (Auto) 2.2, [place] # (Auto) 0.6, Eos # (Auto) 0.0, Baso # (Auto) 0.0, PT 11.5, INR 1.04, VBG pH 7.41, VBG pCO2 45.0, VBG pO2 43.0 H, VBG HCO3 27.6, VBG Total CO2 29.0 H, VBG O2 Saturation 79.8 H, VBG Base Excess 2.9 H, VBG Lactic Acid 2.7 H, Sodium 138, Potassium 4.0, Chloride 96 L, Carbon Dioxide 30, Anion Gap 16.0 H, BUN 20 H, Creatinine 0.60, Estimated GFR 105, Est GFR ( Amer) 128, Glucose 140 H, Calcium 10.6 H, Magnesium 1.9, Total Bilirubin 0.8, AST 31, ALT 26, Alkaline Phosphatase 191 H, Troponin I < 0.01, Total Protein 9.8 H D, Albumin 5.2 H, Globulin 4.6 H, Albumin/Globulin Ratio 1.1, Lipase 99, Serum HCG, Qual Negative, HCV Ab JAIME w/Rflx PCR Qn Reactive, HIV Ag/Ab Combo Qual Negative 07/02/25 23:50: Troponin I < 0.01 07/03/25 02:36: Lactate 1.7 07/03/25 04:23: WBC 11.6 H, RBC 5.12, Hgb 15.4, Hct 44.5, MCV 86.9, MCH 30.1, MCHC 34.6, RDW 12.6, Plt Count 359, MPV 9.4, Neut % (Auto) 88.9 H, Lymph % (Auto) 8.0 L, [place] % (Auto) 2.2, Eos % (Auto) 0.4, Baso % (Auto) 0.2, Neut # (Auto) 10.3 H, Lymph # (Auto) 0.9, [place] # (Auto) 0.3, Eos # (Auto) 0.1, Baso # (Auto) 0.0, Sodium 137, Potassium 3.2 L, Chloride 100, Carbon Dioxide 26, Anion Gap 14.2, BUN 16, Creatinine 0.50 L, Estimated Creat Clear 150, Estimated GFR 130, Est GFR ( Amer) 157 D, Glucose 150 H, Hemoglobin A1c 5.1, Calcium 9.8, Magnesium 1.7 D, Total Bilirubin 0.8, AST 33, ALT 24, Alkaline Phosphatase 168 H, Troponin I < 0.01, Total Protein 8.9 H, Albumin 5.0, Globulin 3.9 H, Albumin/Globulin Ratio 1.3, TSH 0.29 L 07/03/25 04:33: Free T4 0.98 07/03/25 11:19: Urine Color Yellow, Urine Appearance Clear, Urine pH 6.0, Ur Specific [place] 1.025, Urine Protein 2+ A, Urine Glucose (UA) Negative, Urine Ketones 1+, Urine Blood 2+ A, Urine Nitrate Negative, Urine Bilirubin Negative, Urine Urobilinogen 0.2, Ur Leukocyte Esterase Negative, Urine RBC 5-10, Urine WBC Occasional, Ur Squamous Epith Cells 3-5, Urine Bacteria 1+, Chlamy pneumoniae PCR Not detected, Adenovirus (PCR) Not detected, B. pertussis DNA (PCR) Not detected, Coronavirus OC43 (PCR) Not detected, Coronavirus HKU1 (PCR) Not detected, Coronavirus 229E (PCR) Not detected, SARS-CoV-2 (PCR) Not detected, Coronavirus NL63 (PCR) Not detected, Human Metapneumovir PCR Not detected, Influenza A (H1) PCR Not detected, Influ A (H1N1/09) PCR Not detected, Influenza A (H3) PCR Not detected, Influenza Type A (PCR) Not detected, Influenza Type B (PCR) Not detected, M. pneumoniae (PCR) Not detected, Parainfluenza 1 (PCR) Not detected, Parainfluenza 2 (PCR) Not detected, Parainfluenza 3 (PCR) Not detected, Parainfluenza 4 (PCR) Not detected, RSV (PCR) Not detected, Entero/Rhino (PCR) Not detected 07/03/25 11:22: Urine Opiates Screen Positive H, Urine Methadone Screen Positive H, Ur Barbituates Screen Negative, Ur Phencyclidine Scrn Negative, Ur Amphetamines Screen Negative, U Benzodiazepines Scrn Negative, Urine Cocaine Screen Negative, U Marijuana (THC) Screen Positive H I & O for Last 24 hours: Intake & Output 06/30/25 07/01/25 07/02/25 07/03/25 23:59 23:59 23:59 23:59 Intake Total 1050 / 1050 Output Total 300 / 300 Balance 750 / 750 Weight 79.379 kg 71.532 kg Constitutional Constitutional: no acute distress *Routine HEENT Exam Head: Present normocephalic Eye: Present EOMI and PERRL ENT: Present mucous membranes moist *Routine Neck Exam Neck: Present supple; Absent lymphadenopathy *Routine Respiratory Exam Respiratory: Present CTA bilaterally *Routine Cardiovascular Exam Cardiovascular: Present RRR *Routine Abdominal Exam Abdominal: Present soft and normoactive bowel sounds; Absent tenderness *Routine Extremities Exam Extremities: Absent cyanosis, clubbing or edema *Routine Skin Exam Skin: Present warm; Absent rash *Routine Neurological Exam Neurological: Present alert and oriented X3 Results Data Completed and Pending Labs on day of discharge: Labs from last 24 hours 07/03/25 07/03/25 07/03/25 11:22 11:19 04:33 WBC RBC Hgb Hct MCV MCH MCHC RDW Plt Count MPV Neut % (Auto) Lymph % (Auto) [place] % (Auto) Eos % (Auto) Baso % (Auto) Neut # (Auto) Lymph # (Auto) [place] # (Auto) Eos # (Auto) Baso # (Auto) PT INR VBG pH VBG pCO2 VBG pO2 VBG HCO3 VBG Total CO2 VBG O2 Saturation VBG Base Excess VBG Lactic Acid Sodium Potassium Chloride Carbon Dioxide Anion Gap BUN Creatinine Estimated Creat Clear Estimated GFR Est GFR ( Amer) Glucose Hemoglobin A1c Lactate Calcium Magnesium Total Bilirubin AST ALT Alkaline Phosphatase Troponin I Total Protein Albumin Globulin Albumin/Globulin Ratio Lipase TSH Free T4 0.98 Serum HCG, Qual Urine Color Yellow Urine Appearance Clear Urine pH 6.0 Ur Specific [place] 1.025 Urine Protein 2+ A Urine Glucose (UA) Negative Urine Ketones 1+ Urine Blood 2+ A Urine Nitrate Negative Urine Bilirubin Negative Urine Urobilinogen 0.2 Ur Leukocyte Esterase Negative Urine RBC 5-10 Urine WBC Occasional Ur Squamous Epith Cells 3-5 Urine Bacteria 1+ Urine Opiates Screen Positive H Urine Methadone Screen Positive H Ur Barbituates Screen Negative Ur Phencyclidine Scrn Negative Ur Amphetamines Screen Negative U Benzodiazepines Scrn Negative Urine Cocaine Screen Negative U Marijuana (THC) Screen Positive H Chlamy pneumoniae PCR Not detected Adenovirus (PCR) Not detected B. pertussis DNA (PCR) Not detected Coronavirus OC43 (PCR) Not detected Coronavirus HKU1 (PCR) Not detected Coronavirus 229E (PCR) Not detected SARS-CoV-2 (PCR) Not detected Coronavirus NL63 (PCR) Not detected HCV Ab JAIME w/Rflx PCR Qn HIV Ag/Ab Combo Qual Human Metapneumovir PCR Not detected Influenza A (H1) PCR Not detected Influ A (H1N1/09) PCR Not detected Influenza A (H3) PCR Not detected Influenza Type A (PCR) Not detected Influenza Type B (PCR) Not detected M. pneumoniae (PCR) Not detected Parainfluenza 1 (PCR) Not detected Parainfluenza 2 (PCR) Not detected Parainfluenza 3 (PCR) Not detected Parainfluenza 4 (PCR) Not detected RSV (PCR) Not detected Entero/Rhino (PCR) Not detected 07/03/25 07/03/25 07/02/25 04:23 02:36 23:50 WBC 11.6 H RBC 5.12 Hgb 15.4 Hct 44.5 MCV 86.9 MCH 30.1 MCHC 34.6 RDW 12.6 Plt Count 359 MPV 9.4 Neut % (Auto) 88.9 H Lymph % (Auto) 8.0 L [place] % (Auto) 2.2 Eos % (Auto) 0.4 Baso % (Auto) 0.2 Neut # (Auto) 10.3 H Lymph # (Auto) 0.9 [place] # (Auto) 0.3 Eos # (Auto) 0.1 Baso # (Auto) 0.0 PT INR VBG pH VBG pCO2 VBG pO2 VBG HCO3 VBG Total CO2 VBG O2 Saturation VBG Base Excess VBG Lactic Acid Sodium 137 Potassium 3.2 L Chloride 100 Carbon Dioxide 26 Anion Gap 14.2 BUN 16 Creatinine 0.50 L Estimated Creat Clear 150 Estimated GFR 130 Est GFR ( Amer) 157 D Glucose 150 H Hemoglobin A1c 5.1 Lactate 1.7 Calcium 9.8 Magnesium 1.7 D Total Bilirubin 0.8 AST 33 ALT 24 Alkaline Phosphatase 168 H Troponin I < 0.01 < 0.01 Total Protein 8.9 H Albumin 5.0 Globulin 3.9 H Albumin/Globulin Ratio 1.3 Lipase TSH 0.29 L Free T4 Serum HCG, Qual Urine Color Urine Appearance Urine pH Ur Specific [place] Urine Protein Urine Glucose (UA) Urine Ketones Urine Blood Urine Nitrate Urine Bilirubin Urine Urobilinogen Ur Leukocyte Esterase Urine RBC Urine WBC Ur Squamous Epith Cells Urine Bacteria Urine Opiates Screen Urine Methadone Screen Ur Barbituates Screen Ur Phencyclidine Scrn Ur Amphetamines Screen U Benzodiazepines Scrn Urine Cocaine Screen U Marijuana (THC) Screen Chlamy pneumoniae PCR Adenovirus (PCR) B. pertussis DNA (PCR) Coronavirus OC43 (PCR) Coronavirus HKU1 (PCR) Coronavirus 229E (PCR) SARS-CoV-2 (PCR) Coronavirus NL63 (PCR) HCV Ab JAIME w/Rflx PCR Qn HIV Ag/Ab Combo Qual Human Metapneumovir PCR Influenza A (H1) PCR Influ A (H1N1/09) PCR Influenza A (H3) PCR Influenza Type A (PCR) Influenza Type B (PCR) M. pneumoniae (PCR) Parainfluenza 1 (PCR) Parainfluenza 2 (PCR) Parainfluenza 3 (PCR) Parainfluenza 4 (PCR) RSV (PCR) Entero/Rhino (PCR) 07/02/25 21:50 WBC 14.0 H RBC 5.57 H Hgb 16.6 H Hct 47.7 H MCV 85.6 MCH 29.8 MCHC 34.8 RDW 12.6 Plt Count 475 H MPV 9.5 Neut % (Auto) 79.7 Lymph % (Auto) 15.8 [place] % (Auto) 4.1 Eos % (Auto) 0.1 Baso % (Auto) 0.1 Neut # (Auto) 11.2 H Lymph # (Auto) 2.2 [place] # (Auto) 0.6 Eos # (Auto) 0.0 Baso # (Auto) 0.0 PT 11.5 INR 1.04 VBG pH 7.41 VBG pCO2 45.0 VBG pO2 43.0 H VBG HCO3 27.6 VBG Total CO2 29.0 H VBG O2 Saturation 79.8 H VBG Base Excess 2.9 H VBG Lactic Acid 2.7 H Sodium 138 Potassium 4.0 Chloride 96 L Carbon Dioxide 30 Anion Gap 16.0 H BUN 20 H Creatinine 0.60 Estimated Creat Clear Estimated GFR 105 Est GFR ( Amer) 128 Glucose 140 H Hemoglobin A1c Lactate Calcium 10.6 H Magnesium 1.9 Total Bilirubin 0.8 AST 31 ALT 26 Alkaline Phosphatase 191 H Troponin I < 0.01 Total Protein 9.8 H D Albumin 5.2 H Globulin 4.6 H Albumin/Globulin Ratio 1.1 Lipase 99 TSH Free T4 Serum HCG, Qual Negative Urine Color Urine Appearance Urine pH Ur Specific [place] Urine Protein Urine Glucose (UA) Urine Ketones Urine Blood Urine Nitrate Urine Bilirubin Urine Urobilinogen Ur Leukocyte Esterase Urine RBC Urine WBC Ur Squamous Epith Cells Urine Bacteria Urine Opiates Screen Urine Methadone Screen Ur Barbituates Screen Ur Phencyclidine Scrn Ur Amphetamines Screen U Benzodiazepines Scrn Urine Cocaine Screen U Marijuana (THC) Screen Chlamy pneumoniae PCR Adenovirus (PCR) B. pertussis DNA (PCR) Coronavirus OC43 (PCR) Coronavirus HKU1 (PCR) Coronavirus 229E (PCR) SARS-CoV-2 (PCR) Coronavirus NL63 (PCR) HCV Ab JAIME w/Rflx PCR Qn Reactive HIV Ag/Ab Combo Qual Negative Human Metapneumovir PCR Influenza A (H1) PCR Influ A (H1N1/) PCR Influenza A (H3) PCR Influenza Type A (PCR) Influenza Type B (PCR) M. pneumoniae (PCR) Parainfluenza 1 (PCR) Parainfluenza 2 (PCR) Parainfluenza 3 (PCR) Parainfluenza 4 (PCR) RSV (PCR) Entero/Rhino (PCR) DS: Diagnosis Discharge Diagnosis (1) Intractable nausea and vomiting: Status: Acute Code(s): R11.2 - Nausea with vomiting, unspecified (2) Methadone dependence: Status: Acute Code(s): F11.20 - Opioid dependence, uncomplicated (3) Hypertension: Status: Chronic Code(s): I10 - Essential (primary) hypertension Qualifiers: Hypertension type: unspecified Qualified Code(s): I10 - Essential (primary) hypertension (4) Tobacco use disorder: Status: Chronic Code(s): F17.200 - Nicotine dependence, unspecified, uncomplicated (5) Chronic low back pain with left-sided sciatica: Status: Chronic Code(s): M54.42 - Lumbago with sciatica, left side; G89.29 - Other chronic pain Qualifiers: Back pain laterality: bilateral Qualified Code(s): G89.29 - Other chronic pain; M54.42 - Lumbago with sciatica, left side (6) Lumbar radiculopathy: Status: Acute Code(s): M54.16 - Radiculopathy, lumbar region (7) Obstipation: Status: Chronic Code(s): K59.00 - Constipation, unspecified (8) Hepatitis C antibody positive: Status: Acute Code(s): R76.8 - Other specified abnormal immunological findings in serum Meds Home Medications and Allergies Home Medications ?Medication ?Instructions ?Recorded ?Confirmed ?Type ondansetron 4 mg disintegrating 4 mg PO Q8H PRN nausea and 12/20/24 07/03/25 Rx tablet vomiting #30 tabs lactulose 10 gram/15 mL oral 10 g (15 mL) PO BID PRN 02/13/25 07/03/25 Rx solution constipation #900 mL amlodipine 5 mg tablet 5 mg PO DAILY #90 tabs 05/17/25 07/03/25 Rx zolpidem 10 mg tablet 10 mg PO HS PRN SLEEP #30 tabs 06/15/25 07/03/25 Rx gabapentin 600 mg tablet 600 mg PO TID 07/03/25 07/03/25 History methadone 40 mg soluble tablet 140 mg PO DAILY 07/03/25 07/03/25 History metoclopramide HCl 5 mg tablet 5 mg PO Q6HP PRN nausea and 07/03/25 Rx (Reglan) vomiting #10 tabs tizanidine 4 mg tablet 4 mg PO TID PRN muscle spasms 07/03/25 07/03/25 History New Prescriptions to Start Prescriptions: metoclopramide HCl [Reglan] Michael Villeda Allergies Allergy/AdvReac Type Severity Reaction Status Date / Time albuterol AdvReac Palpitation Verified 05/24/25 10:49 s Discharge Plan Disposition Patient Disposition: Home, Self-Care Condition: Fair Follow up Plan Follow up with: Jelani Morrison MD [Primary Care Provider, Medical] - 1 week Prescriptions/Medication Reconciliation: New metoclopramide HCl [Reglan] 5 mg tablet 5 mg PO Q6HP PRN (Reason: nausea and vomiting) Qty: 10 0RF Continued ondansetron 4 mg tablet,disintegrating 4 mg PO Q8H PRN (Reason: nausea and vomiting) Qty: 30 1RF lactulose 10 gram/15 mL solution 10 g PO BID PRN (Reason: constipation) Qty: 900 5RF amlodipine 5 mg tablet 5 mg PO DAILY Qty: 90 1RF zolpidem 10 mg tablet 10 mg PO HS PRN (Reason: SLEEP) Qty: 30 0RF methadone 40 mg Tablet,Soluble 140 mg PO DAILY Rx Instructions: Patient stated she takes 140 mg a day- verified with [facility] gabapentin 600 mg tablet 600 mg PO TID Rx Instructions: TAKE ONE TABLET BY MOUTH 3 TIMES A DAY tizanidine 4 mg tablet 4 mg PO TID PRN (Reason: muscle spasms) Rx Instructions: TAKE 1 TABLET BY MOUTH 3 TIMES A DAY NEEDED FOR muscle relaxer Problem Reconciliation Problems Reviewed?: Yes Patient Discharge Instructions Patient Instructions: DI for Vomiting -- Adult Print Language: Omani Providers Primary Care Provider: Jelani Morrison Admit Provider: Bowen Richardson Attending Provider: Bowen Richardson
--- NOTE | 2025-07-05 10:40 | SW/DCPLANNER ---
Phoned patient x2. Patient's phone was not able to leave a message. Maurice Hitchcock
== END 2025-07-03 16:22 | disposition home or self-care (01) ==
LOC: ER 22:11 → 2ND 07-03 01:16
PROVIDERS: Nurse Practitioner Family; Student in an Organized Health Care Education/Training Program; Admitting Provider Internal Medicine Adolescent Medicine; Emergency Provider Student in an Organized Health Care Education/Training Program; PCP Internal Medicine; Visit Provider Internal Medicine Adolescent Medicine
DX: R11.2 Nausea with vomiting, unspecified (principal); F11.21 Opioid dependence, in remission; I10 Essential (primary) hypertension; M54.42 Lumbago with sciatica, left side; R07.2 Precordial pain; M54.16 Radiculopathy, lumbar region; F17.210 Nicotine dependence, cigarettes, uncomplicated; R00.0 Tachycardia, unspecified; K59.00 Constipation, unspecified; R76.8 Other specified abnormal immunological findings in serum; Z88.8 Allergy status to other drugs, medicaments and biological substances; Z79.899 Other long term (current) drug therapy
CPT/HCPCS: 0223U; 36415; 71045; 71275; 74174; 80053; 80307; 81001; 82803; 83036; 83605; 83690; 83735; 84439; 84443; 84484; 84703; 85025; 85610; 86803; 87389; 87522; 93005; 96361; 96374; 96375; 96376; 99285; G0378; J0780; J1200; J1790; J1885; J2270; J2405; J2550; J2765; J3475; J3480; J7030; J7120; Q9967

== ENCOUNTER 2025-07-11 15:30 | Outpatient (CLI) | payer OTHER, SELFPAY ==
--- OUTSIDE RECORDS SUMMARY | 2021-08-05 15:00 | XMS_ITS | Encounter Summary ---
Author Organization [place] [address] Care Team Providers Care Parts Sales Counterperson Name Role Phone Mahesh Aranda MD Primary Care Provider Unavailable Reason for Visit * Auth/Cert/Inpt Specialty Diagnoses / Procedures Referred By Chiki t Referred To Contact Diagnoses Pain in left knee Referral ID Status Reason Start Date Expiration Date Visits Re quested Visits Authorized [id number] 1 1 Encounter Details Date Type Department Care Team (Latest Contact Info) Description 08/05/2021 3:00 PM EDT Hospital Encounter [facility] [address] [place] [address] Rosette Hernandez PA [address] [place] [address] Left without seen Social History Tobacco Use Types Packs/Day Years Used Date Smoking Tobacco: Every Day Cigarettes 1 31.6 Started: 12/20/1993 Smokeless Tobacco: Never Alcohol Use Standard Drinks/Week Comments No 0 (1 standard drink = 0.6 oz pur e alcohol) PHQ-2 Answer Date Recorded PHQ-2 Score 1 12/15/2019 Comments No Sex and Gender Information Value Date Recorded Sex Assigned at Not on file Legal Sex Female 9:24 PM EDT Gender Identity Not on file Sexual Orientation Not on file COVID-19 Exposure Response Date Recorded In the last month, have you been in contact with someone who was confirmed or suspected to have Coronavirus / COVID-19? No / Unsure 09/25/2021 4:26 PM EDT documented as of this encounter Functional Status * Is the person deaf or does he/she have serious difficulty hearing? Answer Date of Assessment Author No 12/24/2019 3:45 PM Valencia Ramirez RN * Is the person blind or does he/she have serious difficulty seeing even when wearing glasses? Answer Date of Assessment Author No 12/24/2019 3:45 PM Valencia Ramirez RN * Does this person have serious difficulty walking or climbing stairs? Answer Date of Assessment Author No 12/24/2019 3:45 PM Valencia Ramirez RN * Does this person have difficulty dressing or bathing? Answer Date of Assessment Author No 12/24/2019 3:45 PM Valencia Ramirez RN * Because of a physical, mental or emotional condition, does this person have difficulty doing errands alone such as visiting a doctor's office or shopping? Answer Date of Assessment Author No 12/24/2019 3:45 PM Valencia Ramirez RN documented as of this encounter Mental Status * Because of a physical, mental or emotional condition, does this person have serious difficulty concentrating, remembering or making decisions? Answer Entry Date Author No 12/24/2019 3:45 PM Valencia Ramirez RN documented in this encounter Plan of Treatment Not on file documented as of this encounter Goals Goal Patient Goal Type Associated Problems Recent Progress Patient-Stated? Author Blood Pressure < 140/90 Blood Pressure 120/88(2021 3:14 PM EDT) No Akhil He MD Maintain a healthy diet, exercise regularly and maintain an ideal body weight General No Shahrzad Robert LPN Stay Tobacco Free Lifestyle No Shahrzad Robret LPN documented as of this encounter Visit Diagnoses Not on filedocumented in this encounter Additional Health Concerns Assessment Noted Time PHQ-9 Depression Total Score: 12/15/19 10:03 AM EST PHQ-2 Depression Total Score: 12/15/19 10:03 AM EST documented as of this encounter Care Teams Parts Sales Counterperson Relationship Specialty Start Date End Date Mahesh Aranda MD PCP - General Internal Medicine 11/08/20 09/29/22 documented as of this encounter
[2025-07-11 17:45] LABS: Chloride 106 mmol/L (98-107); Sodium 140 mmol/L (136-145)
[2025-07-11 17:46] LABS: Potassium 4.3 mmoL/L (3.5-5.1)
[2025-07-11 17:48] LABS: Blood Urea Nitrogen 26 mg/dl (7-17); Creatinine,Serum 0.90 mg/dl (0.52-1.04); Estimated Glomerular Filt Rate 66 ml/min (>60); GFR (African American) 80 ML/MIN (>60)
[2025-07-11 17:49] LABS: Anion Gap 13.3 mEq/L (5-15); Calcium 10.1 mg/dl (8.4-10.2); Carbon Dioxide 25 mmol/L (22.0-30.0); Glucose 88 mg/dl (74-100)
--- OUTSIDE RECORDS SUMMARY | 2025-07-12 12:03 | XMS_ITS | Referral Summary ---
Author Organization [facility] Address [address] [place] [address] [place] [address] Care Team Providers Care Engineer Booster And Exhauster Name Role Phone Unavailable Primary Care Provider [...]
--- OUTSIDE RECORDS SUMMARY | 2025-07-12 12:03 | XMS_ITS | Clinical Summary ---
Author Organization [facility] Address [address] [place] [phone] Phone Care Team Providers Care Measurement Technician Name Role Phone Justin ESPINO, Christina Bang Unavailable Conditions or Problems Problem Name Problem Code Onset Date Status Entry Date Provider Comment Standard Description Annotate Neutropenia, drug-induced 14431582 (SNOMED CT) 11/29 Active 11/29 Barbara Chaudhari RN Drug-induced neutropenia Osteomyelitis of vertebra, lumbar region M46.26 (ICD-10-CM ) Active Kimmy Jacques Osteomyelitis of vertebra, lumbar region Lumbar region, infected discitis, 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.36 (ICD-10-CM ) Active Kimmy Jacques Infection of intervertebral disc (pyogenic), lumbar region Pseudomonas infection 05080488 (SNOMED CT) Active Kimmy Hanna Bacterial infection caused by Pseudomonas Benign Essential Hypertension 6144832 (SNOMED CT) Active Kimmy Jacques Benign essential [...] by mouth twice a day METOPROLOL TARTRATE 20977486959 Alyx S ZOFRAN 4 MG ORAL TABLET Take one by mouth 3 times a day when necessary severe nausea and vomiting ONDANSETRON HCL [id number] Singh Polk MD EFFEXOR XR 37.5 MG [id number] Take one by mouth daily VENLAFAXINE HCL [id number] Singh Polk MD LEVAQUIN 750 MG ORAL TABLET by mouth daily LEVOFLOXACIN [id number] Singh Polk MD DIFLUCAN 150 MG TABS Take one pill daily. FLUCONAZOLE [id number] Shell K LEVAQUIN 750 MG ORAL TABLET by mouth daily 02/20 LEVOFLOXACIN [id number] Singh Polk MD DIFLUCAN 150 MG TABS Take one pill daily. 05/30 FLUCONAZOLE [id number] Singh Polk MD CEFEPIME HCL 2 GM INJECTION SOLUTION RECONSTITUTED 2gm IV q12hr [facility] 12/27 CEFEPIME HCL [id number] Barbara Chaudhari RN DIFLUCAN 150 MG TABS Take one pill daily. 12/19 FLUCONAZOLE [id number] Barbara Chaudhari RN NYSTATIN 415513 UNIT/ML SUSP 5ml swish and spit three tmes per days as needed NYSTATIN [id number] Singh Polk MD MERREM 1 GM INTRAVENOUS SOLUTION RECONSTITUTED [id number] HH 12/19 MEROPENEM [id number] Barbara Chaudhari RN LEVAQUIN 750 MG ORAL TABLET by mouth daily 02/20 LEVOFLOXACIN [id number] Singh Polk MD DIFLUCAN 150 MG TABS Take one pill daily. 05/30 FLUCONAZOLE [id number] Singh Polk MD MERREM 1 GM INTRAVENOUS SOLUTION RECONSTITUTED [id number] HH 12/19 MEROPENEM [id number] Nel H LEVAQUIN 750 MG ORAL TABLET by mouth daily 02/20 LEVOFLOXACIN [id number] Singh Polk MD DIFLUCAN 150 MG TABS Take one pill daily. 05/30 FLUCONAZOLE [id number] Singh Polk MD FENTANYL 25 MCG/HR PT72 apply patch to skin every 3 days FENTANYL [id number] Singh Polk MD NEURONTIN 600 MG TABS by mouth three times a day GABAPENTIN [id number] James K LACTINEX PACK 2 tabs by mouth twice daily LACTOBACILLUS [id number] James K COLACE 100 MG CAPS by mouth daily DOCUSATE SODIUM 23124858847 James K GABAPENTIN 300 MG CAPS 2 tabs by mouth three times a day GABAPENTIN [id number] James K ADVIL 200 MG CAPS 2 tabs as needed by mouth every 4 hours IBUPROFEN [id number] James K MIRALAX ORAL PACKET by mouth daily POLYETHYLENE GLYCOL 3350 [id number] James K MIRALAX ORAL PACKET by mouth daily 0 04/25 POLYETHYLENE GLYCOL 3350 [id number] Lorne P PERCOCET 10-325 MG TABS 1 tab as needed by mouth every six hours OXYCODONE-ACETAMI NOPHEN [id number] Lorne P LEVAQUIN 750 MG ORAL TABLET by mouth daily 0 02/20 LEVOFLOXACIN [id number] Singh Polk MD ADVIL 200 MG CAPS 2 tabs as needed by mouth every 4 hours 12/06 IBUPROFEN [id number] Lorne P GABAPENTIN 300 MG CAPS 2 tabs by mouth three times a day 0 05/22 GABAPENTIN [id number] Lorne P CYCLOBENZAPRINE HCL 10 MG TABS 1 tab as needed by mouth three times a day CYCLOBENZAPRINE HCL 16846367646 Lorne P COLACE 100 MG CAPS by mouth daily 0 7 DOCUSATE SODIUM 20355941767 Lorne P CVS D3 25 MCG (1000 UT) CAPS by mouth daily CHOLECALCIFEROL 63887168605 Lorne P CALCI-CHEW TABLET CHEWABLE 500 mg by mouth three times a day CALCIUM CARBONATE CHEW 53075131468 Lorne P LACTINEX PACK 2 tabs by mouth twice daily 02/20 LACTOBACILLUS [id number] Lorne P AMBIEN 10 MG TABS one tab as needed by mouth at bedtime ZOLPIDEM TARTRATE [id number] Lorne P CEFEPIME HCL 2 GM INJECTION SOLUTION RECONSTITUTED 2gm IV q12hr HH [facility] 01/18 CEFEPIME HCL [id number] Barbara Chaudhari RN Medications Administered No information [...] Procedures Code Procedure Name Date Entry Date [id number] CBC with Differential 2016 CPT-64846 Sedimentation Rate (ESR) 201 05/25/20 CPT-92835 C- reactive protein CPT-87809 MRI Lumbar Spine with/without constrast 2 CPT-Cooral Continue oral antibiotics 08/01/09 [id number] CBC with Differential 2016 CPT-83175 CMP CPT-27854 Sedimentation Rate (ESR) 201 05/23/09 CPT-26493 C- reactive protein CPT-Cooral Continue oral antibiotics 06/11/27 CPT-francisco New Oral Antibiotic CPT-Cooral Continue oral antibiotics 06/11/06 CPT-ca Continue IV antibiotics 2015 CPT-J2185 Meropenem CPT-Cooral Continue oral antibiotics 20 07/10/15 [id number] CBC with Differential 2015 CPT-39556 CMP CPT-karlos Change IV antibiotics 11/29 CPT-Cooral Continue oral antibiotics 07/10/08 CPT-sl STAT Labs [id number] CBC with Differential 2015 CPT-57783 C- reactive protein CPT-21193 Sedimentation Rate (ESR) 201 05/02/08 CPT-OD Other Drug CPT-J2185 Meropenem 09531 Hepatitis C Atb: (ICD 10 Code: Z11.59) 20 07/10/07 CPT-abhishek New IV antibiotic CPT-Cooral Continue oral antibiotics 07/10/01 CPT-francisco New Oral Antibiotic [id number] CBC with Differential 2015 CPT-30118 CMP CPT-49713 Sedimentation Rate (ESR) 201 05/02/01 CPT-02631 C- reactive protein CPT-ca Continue IV antibiotics [...]
--- OUTSIDE RECORDS SUMMARY | 2025-07-12 12:03 | XMS_ITS | Clinical Summary ---
Author Organization [facility] Address [address] [place] [address] Care Team Providers Care Bolt Maker Name Role Phone Provider, No Known Primary [...] 10/04/2018, 018 Medical Devices Implanted Type Area Nurse Wound Care Device Identifier Shelf Expiration Date Model / Serial / Lot Orthoblend Dbm Mickey 5cc - [id number] - [id number] Implanted:Qty: 1 on 04/27/2017 by Jeffrey Wheat MD at [facility] Implant N/A: Spine Lumbar MEDTRONIC 01/12/2019 [id number] / [id number] / NA Conn Tsrh 3d 10 Lg - [id number] Implanted:Qty: 1 on 04/27/2017 by Jeffrey Wheat MD at [facility] Implant N/A: Spine Lumbar MEDTRONIC [id number] / / NA Scrw Set For Tsrh 3dx - [id number] Implanted:Qty: 9 on 04/27/2017 by Jeffrey Wheat MD at [facility] Implant N/A: Spine Lumbar MEDTRONIC [id number] / / NA Scrw Ma Clsd Ti 7.5x80mm - [id number] Implanted:Qty: 2 on 04/27/2017 by Jeffrey Wheat MD at [facility] Implant N/A: Spine Lumbar MEDTRONIC [id number] / / NA Scrw Hex Breakoff Ti 1/7ton82iw - [id number] Implanted:Qty: 4 on 04/27/2017 by Jeffrey Wheat MD at [facility] Implant N/A: Spine Lumbar MEDTRONIC [id number] / / NA Conn Cls Lat 5.5x6.58i65id Md - [id number] Implanted:Qty: 2 on 04/27/2017 by Jeffrey Wheat MD at [facility] Implant N/A: Spine Lumbar MEDTRONIC [id number] / / NA Dali Solera Line 5.5mm 500mm - [id number] Implanted:Qty: 1 on 04/27/2017 by Jeffrey Wheat MD at [facility] Implant N/A: Spine Lumbar MEDTRONIC [id number] / / NA Scrw Mpa Shrt Post Ti 5.5x45mm - [id number] Implanted:Qty: 2 on 04/27/2017 by Jeffrey Wheat MD at [facility] Implant N/A: Spine Lumbar MEDTRONIC [id number] / / NA Scrw Mpa Thrd Post Ti 6.5x45mm - [id number] Implanted:Qty: 2 on 04/27/2017 by Jeffrey Wheat MD at [facility] Implant N/A: Spine Lumbar MEDTRONIC [id number] / / NA Scrw Mpa Shrt Post Ti 7.5x40mm - [id number] Implanted:Qty: 1 on 04/27/2017 by Jeffrey Wheat MD at [facility] Implant N/A: Spine Lumbar MEDTRONIC [id number] / / NA Orthoblend Dbm Mickey 10cc Sm - [id number] - [id number] Implanted:Qty: 1 on 04/27/2017 by Jeffrey Wheat MD at [facility] Implant N/A: Spine Lumbar MEDTRONIC 11/24/2018 [id number] / [id number] / NA Scrw Mpa Thrd Post Ti 7.5x45mm - [id number] Implanted:Qty: 4 on 04/27/2017 by Jeffrey Wheat MD at [facility] Implant N/A: Spine Lumbar MEDTRONIC [id number] / / NA Plt Crslnk X10 Lp M/ Ti 5.5x28/30 - [id number] Implanted:Qty: 1 on 04/27/2017 by Jeffrey Wheat MD at [facility] Implant N/A: Spine Lumbar MEDTRONIC [id number] / / NA Plt Crslnk X10 Lp M/ Ti 5.5x34/36 - [id number] Implanted:Qty: 1 on 04/27/2017 by Jeffrey Wheat MD at [facility] Implant N/A: Spine Lumbar MEDTRONIC [id number] / / NA Granules Osteocond Mstrgrft Ceram 5 - [id number] Implanted:Qty: 1 on 04/27/2017 by Jeffrey Wheat MD at [facility] Implant N/A: Spine Lumbar MEDTRONIC 02/11/2022 [id number] / / [id number] Granules Osteocond Mstrgrft Ceram 5 - [id number] Implanted:Qty: 1 on 04/27/2017 by Jeffrey Wheat MD at [facility] Implant N/A: Spine Lumbar MEDTRONIC 02/11/2022 [id number] / / [id number] Granules Osteocond Mstrgrft Ceram 5 - [id number] Implanted:Qty: 1 on 04/27/2017 by Jeffrey Wheat MD at [facility] Implant N/A: Spine Lumbar MEDTRONIC 02/11/2022 [id number] / / [id number] Kt Grft Bone Inf Lg 2 - [id number] Implanted:Qty: 1 on 04/27/2017 by Jeffrey Wheat MD at [facility] Implant N/A: Spine Lumbar MEDTRONIC 01/20/2018 [id number] / / [id number] Spacr Vbs Capstone Vertestack/Sm 8x22mm - [id number] Implanted:Qty: 1 on 04/27/2017 by Jeffrey Wheat MD at [facility] Implant MEDTRONIC 02/24/2025 [id number] / / [id number] [facility] 3dx - [id number] Implanted:Qty: 4 on 04/27/2017 by Jeffrey Wheat MD at [facility] Implant N/A: Spine Lumbar MEDTRONIC [id number] / / NA [facility] 3dx Ri - [id number] Implanted:Qty: 4 on 04/27/2017 by Jeffrey Wheat MD at [facility] Implant N/A: Spine Lumbar MEDTRONIC [id number] / / NA Explanted Type Area Nurse Wound Care Device Identifier Shelf Expiration Date Model / Serial / Lot Scrw Mpa Thrd Post Ti 6.5x45mm - [id number] Explanted:Qty: 1 on 04/27/2017 at [facility] Implant N/A: Spine Lumbar MEDTRONIC [id number] / / NA Description: EXPLANTED DUE TO NOT ENOUGH ROOM FOR CONNECTOR FOR DALI Procedures Procedure Name Priority Date/Time Associated Diagnosis Comments HEPATITIS PANEL, ACUTE STAT 10/04/2018 2:26 PM EST from Last 3 Months or Most Recently Relevant to Health Maintenance Results * (ABNORMAL) Hepatitis Panel, Acute (10/04/2018 2:26 PM EST) Hepatitis B Surface Ag Non-Reacti ve Non-Reacti ve 10/04/2018 6:34 PM EST [facility] Hep A IgM Reactive(A A) Non-Reacti ve 10/04/2018 6:34 PM EST [facility] Comment:Results may be false ly decreased if patient taking Biotin. Hep B C IgM Non-Reacti ve Non-Reacti ve 10/04/2018 6:34 PM EST [facility] Comment:Results may be false ly decreased if patient taking Biotin. Hepatitis C Ab Reactive(A A) Non-Reacti ve 10/04/2018 6:34 PM EST [facility] Blood Venipuncture / Unknown 10/04/2018 2:26 PM EST 10/04/2018 2:32 PM EST Michael JUAREZ LAB BLOOD ORDERABLES Carol baeza Result [facility]
[address] [place] [address], from Last 3 Months or Most Recently Relevant to Health Maintenance Insurance Advance Directives * Full Code (Latest Code Status on File) Date Activated Date Inactivated Comments 04/27/2017 3:29 PM 04/30/2017 3:02 PM Care Teams Bolt Maker Relationship Specialty Start Date End Date Provider, [place] [address] PCP - General 09/13/20
--- OUTSIDE RECORDS SUMMARY | 2025-07-12 12:03 | XMS_ITS | Clinical Summary ---
Author Organization [facility] Address [address] [place], [place] [address] Phone Care Team Providers Care Double Needle Operator Lockstitch Name Role Phone Unavailable Primary Care Provider [...] t be different from the original. David: [id number] 09/25/21.- 06/30/22- [id number] Drug Screen 07/02/22 Utilization audit completed by [...] hx of suicide attempt by overdose in [employer]. Currently denies HSI, AVH. Has a lack of motivation and energy and crying spells. Currently is just tired of hurting. In the past has Effexor which helped. Works at [employer] in [employer]. High school graduate. Associates in medical and [...] Currently does not see a pain or him specialist. Has tried chiropractor, PT, accupuncture. Takes [...] 1 31.6 Started: 12/20/1993 Smokeless Tobacco: Never Tobacco Cessation:Ready [...] AM EDT : Incomplete-need additional imaging evaluation (MCL-Fxnnnvri-2) ~ RECOMMENDATION: Ultrasound of the left breast, [...] densities. ~ IMPRESSION: Incomplete-need additional imaging evaluation (IFK-Nvlylwnp-4) ~ RECOMMENDATION: Ultrasound of the left breast, [...] by a Radiologist and CAD. Trip [facility] [place] [facility] ORDERABLES Fi nal Result from Last 3 Months or Most Recently Relevant to Health Maintenance [facility] [place] [address] [facility] [place] [address] [facility] [place] [address] Advance Directives For more information, please contact: [phone] * Full Code (Latest Code Status on File) Date Activated Date Inactivated Comments 12/20/2019 1:42 PM 12/24/2019 9:09 PM
--- OUTSIDE RECORDS SUMMARY | 2025-07-12 12:03 | XMS_ITS | Clinical Summary ---
Author Organization [facility] Address [address] [place] [address] [place] [address] Care Team Providers Care Beer Cooler Name Role Phone Unavailable Primary Care Provider [...] PCV) 2024 Shingrix (#1) 2024 Influenza Vaccine (#1) 2025 RSV Vaccine (60+ or ) (1 [...]
--- OUTSIDE RECORDS SUMMARY | 2025-07-12 12:03 | XMS_ITS | Encounter Summary ---
Author Organization Healthcare Address [address] [place] [address] Care Team Providers Care Payroll Tax Analyst Name Role Phone Mahesh Aranda MD Primary Care Provider [phone] Encounter Details Date Type Department Care Team ([facility] st Contact Info) Description 05/01/2025 Community [facility] Community Practice [address] [place] [address] Jose Marshall, DO [address] [place] [address] [place] [address] Social History Tobacco Use Types Packs/Day Years [...] documented as of this encounter Care Teams Payroll Tax Analyst Relationship Specialty Start Date End Date Mahesh Aranda MD PCP - General 11/19/21 documented as of this encounter
--- OUTSIDE RECORDS SUMMARY | 2025-07-12 12:03 | XMS_ITS | Clinical Summary ---
Author Organization [facility] Address [facility] [place] [address] Care Team Providers Care Potato Chip Frier Name Role Phone Pcp, No Primary Care [...] therelease of HIV test results or diagnoses. [id number] Allergies No known active allergies Medications [...] Treatment Not on file Insurance AETNA [facility] Care Teams Potato Chip Frier Relationship Specialty Start Date End Date Pcp, No No Address PCP - General Pediatrics 12/30/16
--- OUTSIDE RECORDS SUMMARY | 2025-07-12 12:03 | XMS_ITS | Clinical Summary ---
Author Organization [facility] Address [address] [place] [address] Care Team Providers Care Bobbin Winder Tender Name Role Phone Mahesh Aranda MD Primary Care Provider [phone] Allergies Active Allergy Reactions Criticality Noted Date [...] Overview (11/19/2021): On Methadone 120mg daily per [facility]. 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 Has tried chiropractor, PT, accupuncture. Takes [...] hx [place] [employer] Currently denies HSI, AVH. Has a lack of motivation and energy and crying spells. Currently is just tired of hurting. In the past has Effexor which helped. Works at [employer] in [place]. High school graduate. Associates in medical and [...] Description 05/01/2025 Community [facility] Community Practice [address] [place] [address] Jose Marshall DO from Last 3 Months [...] 2024 UKY-Zoster Vaccines (1 of 2) 2024 JIC-EFLTO-85 Vaccine (1 - 20 24-25 season) 2024 [...] this topic Medical Devices Implanted Type Area Small Arms Artillery Repairer Device Identifier Shelf Expiration Date Model / Serial / Lot Cement Palacos W/Gent - [id number] Implanted:Qty: 2 on 11/19/2021 by Singh Jarquin MD at [facility] Cement Left: Knee Herae[employer] Inc-[id number] 04/21/2024 [id number] / / [id number] Cement Palacos W/Gent - [id number] Implanted:Qty: 2 on 11/19/2021 by Singh Jarquin MD at [facility] Cement Left: Knee Heraeus Inc-[id number] 08/21/2024 [id number] / / [id number] Chg Patella Gii Oval Resurfaci - [id number] Implanted:Qty: 1 on 11/19/2021 by Singh Jarquin MD at [facility] Knee Left: Knee Mcpherson & Nephew Anderson Inc-[id number] 06/21/2031 [id number] / / [id number] Knee Tibial Knee Gii P/S All Poly Sz4 13mm Lt - [id number] Implanted:Qty: 1 on 11/19/2021 by Singh Jarquin MD at [facility] Knee Left: Knee [employer]pherson [employer]hew [employer] Inc-[id number] 06/21/2025 [id number] / / [id number] Chg Femoral Legion Ps Computer Security Specialist Sz 5 - [id number] Implanted:Qty: 1 on 11/19/2021 by Singh Jarquin MD at [facility] Knee Left: Knee [employer]pherson [employer]hew Anderson Inc-[id number] 08/05/2030 [id number] / / [id number] Dbm Putty Synthecure 10cc - [id number] Implanted:Qty: 1 on 10/13/2021 by Tomy Wong MD at [facility] N/A: Spine Lumbar Humacyte Inc-[id number] 02/17/2023 [id number] / / [id number] Graft Jacket Thick [id number] - [id number] Implanted:Qty: 1 on 11/19/2021 by Singh Jarquin MD at [facility] Left: Knee Eqvilibria-[id number] 09/06/2022 [id number] / / [id number] Procedures Procedure Name Priority Date/Time Associated Diagnosis [...] the assistance of CAD. Read By: Mack Allison M.D. Signed By: Mack Allison M.D. on 02/21/2015 Page 2 of 2 Read By: MACK ALLISON M.D. Signed By: MACK ALLISON M.D. on 02/21/2015 at 13:28:13 Narrative 02/21/2015 1:28 PM EDT Patient Name:Susan Balbuena : 1975 Age: 39 Gender: femaleDate of Service: 02/21/2015 Referring Phy:Fabiola BrizuelaAccount: [id number] Fabiola Brizuela , FINAL REPORT PROCEDURE: Tomosynthesis [...] compared to prior imaging studies performed at [facility] on 01/20/2012 and 02/15/2013, and at an [...] since Page 1 of 2 Patient Name:Susan Balbuena : 1975 Age: 39 Gender: femaleDate of Service: 02/21/2015 Referring Phy:Fabiola BrizuelaAccount: [id number] 01/20/12 ultrasound. Finding 2: A focused ultrasound [...] area of focal tenderness. Procedure Note Mack Allison MD - 03/30/2021 Patient Name:Susan Balbuena : 1975 Age: 39 Gender: femaleDate of Service:02/21/2015 Referring Phy:Fabiola BrizuelaAccount: [phone] Fabiola Brizuela , FINAL REPORT PROCEDURE: Tomosynthesis [...] been compared [facility], and at an [...] since Page 1 of 2 Patient Name:Susan Balbuena : 1975 Age: 39 Gender: femaleDate of Service:02/21/2015 Referring Phy:Hickssydnie BrizuelaAccount: [phone] 01/20/12 ultrasound. Finding 2: A focused ultrasound [...] the assistance of CAD. Read By: Mack Allison M.D. Signed By: Mack Allison M.D. on 02/21/2015 Page 2 of 2 Read By: MACK ALLISON M.D. Signed By: MACK ALLISON M.D. on 02/21/2015 at 13:28:13 us Historical Provider IMG BI PROCEDURES Final Resu lt * Cytology (06/18/2010 12:00 AM EDT) 06/18/2010 06/19/2010 10: 53 AM EDT Narrative [facility] - 06/23/2010 10:14 AM EDT [facility] MR #: [id number] [facility] [place] [address] 1975 (Age: 35) FW Collect Date: 06/18/2010 00:00 Receipt Date: 06/19/2010 10:53 Page 1 DEPARTMENT OF PATHOLOGY AND LABORATORY MEDICINE CYTOPATHOLOGY REPORT Email: [email or web address] ATTENDING MD/Practitioner: Westley Brizuela MD Service: OBE Location: [facility] Reported: 06/23/2010 10:14 Collected: 06/18/2010 00:00 INTERPRETATION A. THIN PREP (VAGINAL): NEGATIVE FOR INTRAEPITHELIAL LESION OR MALIGNANCY. SATISFACTORY FOR EVALUATION. Slide scanned and imaged by Ideal Power ThinPrep Imaging System with manual review of [...] results is suggested (please call Microbiology at [phone] for results). CLINICAL INFORMATION: Menstrual History: Post-hysterectomy Date of Last Menstrual Period: {Not Provided} Other Clinical Conditions: Abnormal pap results elsewhere Date and code not provided If ASCUS and > 24 years of age, HPV/DNA testing requested. SPECIMEN DESCRIPTION: A: THIN PREP (VAGINAL) THIN PREP PROCESS CELLULAR ENHANCEMENT ICD: V76.47 VAGINA, SPECIAL SCREENING FOR MALIGNANT NEOPLASMS F: A; RT IMAGE [id number] SNOMED CODES: A; [id number] In cases where a pathologist has signed out the report, the service has been rendered in part by a resident. The signing pathologist has performed and is responsible for the reported pathologic evaluation. us Historical Provider LAB PATHOLOGY ORDERABLES Fin al Result [employer] from Last 3 Months or Most Recently Relevant to Health Maintenance Insurance AETNA [facility] MEDICAID Advance Directives * Full Code (Latest Code Status on File) Date Activated Date Inactivated Comments 11/19/2021 12:30 PM 11/20/2021 6:20 PM Question Answer Comments Patient has decision-making capacity? Yes * Full Code Date Activated Date Inactivated Comments 10/13/2021 11:33 AM 10/19/2021 1:29 PM Question Answer Comments Patient has decision-making capacity? Yes Care Teams Bobbin Winder Tender Relationship Specialty Start Date End Date Mahesh Aranda MD PCP - General 11/19/21
== END 2025-07-11 23:59 | disposition home or self-care (01) ==
LOC: LAB.DROPOF 07-12 12:01
PROVIDERS: PCP Internal Medicine; Visit Provider Internal Medicine
DX: E87.6 Hypokalemia (principal)
CPT/HCPCS: 80048